=== PATIENT | male | born 1960 | race Hispanic/Latino ===

== ENCOUNTER 2017-05-03 06:09 | Inpatient (IN) | payer MEDICAID ==
[2017-05-03] MEDS ORDERED: Sodium Chloride 0.9% 1,000 ML IV STA (06:28)
[2017-05-03 06:58] LABS: BASO # 0.03 K/mm3 (0.0-2.0); BASO % 0.3 % (0.0-3.0); EOS # 0.1 (0.0-0.7); EOS % 1.1 % (1.5-5.0); GRAN # 5.34 (1.4-6.5); HEMOGLOBIN 16.9 g/dL (14.0-18.0); LYMPH # 2.7 (1.2-3.4); LYMPH % 30.7 % (22.0-35.0); MEAN CELL VOLUME 95.9 fl (80.0-105.0); MEAN CORPUSCULAR HEMOGLOBIN 31.6 pg (25.0-35.0); MEAN CORPUSCULAR HGB CONC 32.9 g/dl (31.0-37.0); MEAN PLATELET VOLUME 12.4 fl (7.0-11.0); MONO # 0.7 (0.1-0.6); MONO % 7.9 % (1.0-6.0); RBC 5.35 10^6/uL (3.5-6.1); RED CELL DISTRIBUTION WIDTH 12.6 % (11.5-14.5); WHITE BLOOD COUNT 8.9 10^3/ul (4.5-11.0)
[2017-05-03 07:02] LABS: ALB/GLOB RATIO 1.1 (1.1-1.8); ALBUMIN 3.8 g/dL (3.0-4.8); ALT/SGPT 36 U/L (7-56); AST/SGOT 18 U/L (17-59); BLOOD UREA NITROGEN 21 mg/dL (7-21); CALCIUM 9.5 mg/dL (8.4-10.5); GFR AFRICAN-AMERICAN > 60; GFR NON-AFRICAN AMERICAN > 60
[2017-05-03 07:12] LABS: TROPONIN I < 0.01 ng/mL
[2017-05-03 07:14] LABS: INR 0.99 (0.93-1.08); PROTHROMBIN TIME 10.9 SECONDS (9.4-12.5)
--- NOTE | 2017-05-03 07:34 | ED PDOC ---
Arrival/HPI - General Chief Complaint: Weakness/Neurological Deficit Time Seen by Provider: 05/03/17 06:26 Historian: Patient - History of Present Illness Narrative History of Present Illness (Text): 05/03/17 07:34 A 56 year old male, whose past medical history includes diabetes, presents to the emergency department complaining of chest pain, dizziness and near-syncope since yesterday afternoon. Patient describes his dizziness as both a spinning sensation and also lightheadedness, which is exacerbated with movement. Patient reports this morning he felt dizzy while walking and fell sitting down. PMD: Dr. Balckwell Time/Duration: Other (Yesterday afternoon) Symptom Course: Unchanged Quality: Other Context: Home Past Medical History - Provider Review Nursing Documentation Reviewed: Yes - Infectious Disease Hx of Infectious Diseases: None - Tetanus Immunization Tetanus Immunization: Unknown - Cardiac Hx Cardiac Disorders: Yes Hx Hypertension: Yes - Neurological HX Cerebrovascular Accident: Yes - HEENT Hx HEENT Disorder: No - Renal Hx Renal Disorder: No - Endocrine/Metabolic Hx Diabetes Mellitus Type 2: Yes - Hematological/Oncological Hx Blood Disorders: Yes (blood transfusion) - Integumentary Hx Dermatological Disorder: No - Musculoskeletal/Rheumatological Hx Falls: Yes - Gastrointestinal Hx Gastrointestinal Disorders: Yes - Genitourinary/Gynecological Hx Prostate Problems: Yes - Psychiatric Hx Substance Use: No - Surgical History Hx Appendectomy: Yes Hx Cardiac Catheterization: Yes (angioplasty 7 stents) Hx Coronary Stent: Yes - Anesthesia Hx Anesthesia Reactions: No Hx Malignant Hyperthermia: No - Suicidal Assessment Feels Threatened In Home Enviroment: No Family/Social History - Physician Review Nursing Documentation Reviewed: Yes Family/Social History: No Known Family HX Smoking Status: Former Smoker Hx Alcohol Use: No Hx Substance Use: No Hx Substance Use Treatment: No Allergies/Home Meds Allergies/Adverse Reactions: Allergies FISH Allergy (Mild, Verified 05/03/17 06:23) ITCHING Home Medications: Home Meds Medication Instructions Recorded Confirmed Aspirin 325 mg PO DAILY 05/03/17 05/03/17 Clonazepam [Klonopin] 0.5 mg PO HS 05/03/17 05/03/17 DULoxetine [Cymbalta] 60 mg PO DAILY 05/03/17 05/03/17 Insulin Glargine,Hum.rec.anlog 28 unit SQ HS 05/03/17 05/03/17 [Lantus Solostar] Insulin Lispro Protamin/Lispro 35 unit SQ [facility] 05/03/17 05/03/17 [Humalog Mix 75-25 Kwikpen] Levetiracetam [Keppra] 1,000 mg PO BID 05/03/17 05/03/17 Lisinopril [Zestril] 10 mg PO DIN 05/03/17 05/03/17 Metoprolol Tartrate [Lopressor] 50 mg PO BID 05/03/17 05/03/17 Potassium Chloride [Klor-Con] 20 meq PO DAILY 05/03/17 05/03/17 QUEtiapine [Seroquel] 100 mg PO HS 05/03/17 05/03/17 Ranitidine HCl [Acid Identification Technician 150] 150 mg PO BID 05/03/17 05/03/17 Tamsulosin [Flomax] 0.4 mg PO HS 05/03/17 05/03/17 Ziprasidone [Geodon Cap] 60 mg PO BID 05/03/17 05/03/17 Review of Systems - Physician Review All systems were reviewed & negative as marked: Yes - Review of Systems Constitutional: absent: Fevers, Night Sweats Respiratory: absent: SOB Cardiovascular: Other (Near-syncope). absent: Chest Pain Gastrointestinal: absent: Abdominal Pain, Diarrhea, Nausea, Vomiting, Hematochezia Genitourinary Male: absent: Dysuria, Frequency, Hematuria Neurological: Dizziness. absent: Headache Physical Exam Vital Signs Reviewed: Yes Vital Signs Temp Pulse Resp BP Pulse Ox 05/03/17 11:54 110/41 L 05/03/17 06:53 98.1 F 83 18 117/83 95 05/03/17 06:17 98.1 F 84 18 112/56 L 94 L Temperature: Afebrile Blood Pressure: Hypotensive Pulse: Regular Respiratory Rate: Normal Appearance: Positive for: Well-Appearing, Non-Toxic, Comfortable Pain Distress: None Mental Status: Positive for: Alert and Oriented X 3 Finger Stick Blood Glucose: 129 - Systems Exam Head: Present: Atraumatic, Normocephalic Pupils: Present: PERRL Extroacular Muscles: Present: EOMI Conjunctiva: Present: Normal Mouth: Present: Dry Respiratory/Chest: Present: Clear to Auscultation, Good Air Exchange. No: Respiratory Distress, Accessory Muscle Use Cardiovascular: Present: Regular Rate and Rhythm, Normal S1, S2. No: Murmurs Abdomen: Present: Normal Bowel Sounds. No: Tenderness, Distention, Peritoneal Signs Upper Extremity: Present: Normal Inspection, NORMAL PULSES. No: Cyanosis, Edema Lower Extremity: Present: Normal Inspection, NORMAL PULSES. No: Edema Neurological: Present: GCS=15, Speech Normal Skin: Present: Warm, Dry, Normal Color. No: Rashes Psychiatric: Present: Alert, Oriented x 3, Normal Insight, Normal Concentration Medical Decision Making ED Course and Treatment: EKG shows NSR at 84 BPM with LAFB, nonspecific T-wave abnormalities, similar to prior on 05/23/16. Interpreted by me. Report Date : 05/03/2017 09:25:55 PROCEDURE: CT scan brain dated 05/03/2017. Dictator : Joes Smith MD IMPRESSION: No acute intracranial hemorrhage. Moderate chronic white matter ischemic changes with small chronic lacunar-type infarct right caudate head. Moderate generalized volume loss with enlargement of the frontal and to a lesser degree parietal subarachnoid spaces. In situ CIVIL LABORATORY TECHNICIAN shunt tube unchanged in position. No evidence of obstructive hydrocephalus or shunt malfunction. Report Date : 05/03/2017 13:36:19 Procedure: Chest xray Dictator : Jose Smith MD IMPRESSION: No active disease. - Lab Interpretations Lab Results: 05/03/17 06:30 05/03/17 06:30 Lab Results 05/03/17 06:30: Sodium 138, Potassium 4.5, Chloride 100, Carbon Dioxide 26, Anion Gap 16, BUN 21, Creatinine 0.9, Est GFR ( Amer) > 60, Est GFR (Non- Af Amer) > 60, Random Glucose 144 H, Calcium 9.5, Total Bilirubin 0.4, AST 18, ALT 36, Alkaline Phosphatase 70, Troponin I < 0.01, Total Protein 7.3, Albumin 3.8, Globulin 3.5, Albumin/Globulin Ratio 1.1 05/03/17 06:30: PT 10.9, INR 0.99 05/03/17 06:30: WBC 8.9 D, RBC 5.35, Hgb 16.9, Hct 51.3, MCV 95.9, MCH 31.6, MCHC 32.9, RDW 12.6, Plt Count 142, MPV 12.4 H, Gran % 60.0, Lymph % (Auto) 30.7 , Vermilion % (Auto) 7.9 H, Eos % (Auto) 1.1 L, Baso % (Auto) 0.3, Gran # 5.34, Lymph # 2.7, Vermilion # 0.7 H, Eos # 0.1, Baso # 0.03 - RAD Interpretation Radiology Orders: 05/03/17 06:27 X-RAY [CHEST PORTABLE] [RAD] Stat 05/03/17 07:34 HEAD W/O CONTRAST [CT] Stat - Medication Orders Current Medication Orders: Discontinued Medications Aspirin (Aspirin Chewable) 81 mg PO DAILY [facility] Last Admin: 05/05/17 10:28 Dose: 81 mg Atorvastatin Calcium (Lipitor) 20 mg PO DIN [facility] Last Admin: 05/04/17 18:32 Dose: 20 mg Clonazepam (Klonopin) 0.5 mg PO HS [facility] PRN Reason: Protocol Last Admin: 05/04/17 22:12 Dose: 0.5 mg Behavioural Document 05/04/17 22:12 CO (Rec: 05/04/17 22:12 CO [id number]) Maintenance Maintenance Dose Yes Re-Assess: Reassess Psych Meds Document 05/04/17 23:12 CO (Rec: 05/05/17 02:44 CO [id number]) Reassess Psych Med Effective Clopidogrel Bisulfate (Plavix) 75 mg PO DAILY [facility] Last Admin: 05/05/17 10:28 Dose: 75 mg Duloxetine HCl (Cymbalta) 60 mg PO DAILY [facility] Last Admin: 05/05/17 10:28 Dose: 60 mg Enoxaparin Sodium (Lovenox) 40 mg SC DAILY [facility] PRN Reason: Protocol Last Admin: 05/05/17 10:29 Dose: 40 mg Subcutaneous Administrations Document 05/05/17 10:29 SML (Rec: 05/05/17 10:29 SML [id number]) Injection Site MAR Injection Site Left Abdomen Charges for Administration # of Subcutaneous Administrations 1 Famotidine (Pepcid) 20 mg PO Q12 [facility] Sodium Chloride (Sodium Chloride 0.9%) 1,000 mls @ 100 mls/hr IV .Q10H STA Stop: 05/03/17 16:27 Last Admin: 05/03/17 06:42 Dose: 100 mls/hr eMAR Start Stop Document 05/03/17 06:42 IT (Rec: 05/03/17 06:42 IT [id number]) Intravenous Solution Start Date 05/03/17 Start Time 06:42 Insulin Human Lispro (Humalog Med) 0 units SC [facility] PRN Reason: Protocol Last Admin: 05/04/17 18:20 Dose: Insulin Human Lispro (Humalog High) 0 units SC [facility] PRN Reason: Protocol Last Admin: 05/05/17 12:37 Dose: 7 units MAR Blood Glucose Document 05/05/17 12:37 SML (Rec: 05/05/17 12:38 SML [id number]) Blood Glucose Finger Stick Blood Glucose (70-120) 273 Subcutaneous Administrations Document 05/05/17 12:37 SML (Rec: 05/05/17 12:38 SML [id number]) Injection Site MAR Injection Site Right Arm Charges for Administration # of Subcutaneous Administrations 1 Insulin Lispro Protam/Lispro Human (Humalog Mix 75/25) 35 units SC [facility] Last Admin: 05/05/17 08:54 Dose: 35 units MAR Blood Glucose Document 05/05/17 08:54 SML (Rec: 05/05/17 08:54 SML [id number]) Blood Glucose Finger Stick Blood Glucose (70-120) 272 Subcutaneous Administrations Document 05/05/17 08:54 SML (Rec: 05/05/17 08:54 SML [id number]) Injection Site MAR Injection Site Right Arm Charges for Administration # of Subcutaneous Administrations 1 Isosorbide Mononitrate (Imdur) 60 mg PO DAILY [facility] Levetiracetam (Keppra) 1,000 mg PO BID [facility] Last Admin: 05/05/17 10:28 Dose: 1,000 mg Lisinopril (Zestril) 10 mg PO DIN [facility] Lisinopril (Zestril) 10 mg PO DIN [facility] Last Admin: 05/04/17 18:31 Dose: 10 mg MAR Pulse and Blood Pressure Document 05/04/17 18:31 JFR (Rec: 05/04/17 18:31 JFR [id number]) Blood Pressure Blood Pressure (100/60-150/90) 134/76 Metoprolol Tartrate (Lopressor) 50 mg PO BID [facility] Last Admin: 05/05/17 10:29 Dose: Not Given Non-Admin Reason: BP Parameters Not Met [facility] Pulse and Blood Pressure Document 05/05/17 10:29 SML (Rec: 05/05/17 10:29 SML [id number]) Pulse Pulse Rate (60-90) 95 Blood Pressure Blood Pressure (100/60-150/90) 101/52 Pantoprazole Sodium (Protonix Ec Tab) 40 mg PO 0600 [facility] Last Admin: 05/05/17 05:53 Dose: 40 mg Pneumococcal Polyvalent Vaccine (Pneumovax 23 Vaccine) 0.5 ml IM .ONCE ONE Stop: 05/03/17 19:23 Quetiapine Fumarate (Seroquel) 100 mg PO HS [facility] PRN Reason: Protocol Last Admin: 05/04/17 22:12 Dose: 100 mg Behavioural Document 05/04/17 22:12 CO (Rec: 05/04/17 22:12 CO [id number]) Maintenance Maintenance Dose Yes Re-Assess: Reassess Psych Meds Document 05/04/17 23:12 CO (Rec: 05/05/17 02:44 CO [id number]) Reassess Psych Med Effective Tamsulosin HCl (Flomax) 0.4 mg PO HS [facility] Last Admin: 05/04/17 22:12 Dose: 0.4 mg Ziprasidone (Geodon Cap) 60 mg PO Q12 [facility] PRN Reason: Protocol Last Admin: 05/05/17 10:28 Dose: 60 mg Re-Assess: Reassess Psych Meds Document 05/05/17 11:28 ML (Rec: 05/05/17 14:42 ML [id number]) Reassess Psych Med Effective - Scribe Statement The provider has reviewed the documentation as recorded by the Scribcarlton Garrison Provider Scribe Attestation: All medical record entries made by the Scribe were at my direction and personally dictated by me. I have reviewed the chart and agree that the record accurately reflects my personal performance of the history, physical exam, medical decision making, and the department course for this patient. I have also personally directed, reviewed, and agree with the discharge instructions and disposition. Disposition/Present on Arrival - Present on Arrival Any Indicators Present on Arrival: Yes History of DVT/PE: No History of Uncontrolled Diabetes: Yes Urinary Catheter: No History of Decub. Ulcer: No History Surgical Site Infection Following: CABG - Mediastinitis - Disposition Have Diagnosis and Disposition been Completed?: Yes Diagnosis: Chest pain Disposition: HOSPITALIZED Disposition Time: 12:39 Condition: STABLE
--- NOTE | 2017-05-03 09:27 | CT ---
PROCEDURE: CT scan brain dated 05/03/2017. HISTORY: Dizziness. . COMPARISON: Comparison made with CT scan brain dated 05/24/2016. . TECHNIQUE: Helical/ transaxial computed tomography images were obtained through the head/brain without intravenous contrast. Radiation dose: Total exam DLP = 902.16 mGy-cm. This CT exam was performed using one or more of the following dose reduction techniques: Automated exposure control, adjustment of the mA and/or kV according to patient size, and/or use of iterative reconstruction technique. . FINDINGS: HEMORRHAGE: No acute parenchymal, subarachnoid nor extra-axial hemorrhage. . Re- demonstrated is in situ SCOURING TRAIN OPERATOR CHIEF shunt to which enters a right frontal cecily hole, traverses through the anterior aspect right frontal lobe into the interhemispheric fissure and left lateral ventricle terminating in the posterior body left lateral ventricle unchanged in position. The ventricles remain relatively well-decompressed without evidence of malfunction ; no obstructive hydrocephalus. Moderate diffuse/ confluent chronic white matter ischemic changes are again seen. There is a small chronic appearing infarct right caudate head also unchanged. Moderate generalized volume loss with her enlarged of bifrontal subarachnoid spaces. No acute calvarial fractures. Visualized paranasal and mastoid air complexes well-developed and currently well-aerated. Orbits and contents unremarkable. IMPRESSION: No acute intracranial hemorrhage. Moderate chronic white matter ischemic changes with small chronic lacunar-type infarct right caudate head. Moderate generalized volume loss with enlargement of the frontal and to a lesser degree parietal subarachnoid spaces. In situ SCOURING TRAIN OPERATOR CHIEF shunt tube unchanged in position. No evidence of obstructive hydrocephalus or shunt malfunction.
--- NOTE | 2017-05-03 13:37 | RAD ---
HISTORY: dizziness COMPARISON: No prior. FINDINGS: LUNGS: No active pulmonary disease. PLEURA: No significant pleural effusion identified, no pneumothorax apparent. CARDIOVASCULAR: Heart appears enlarged. OSSEOUS STRUCTURES: No significant abnormalities. VISUALIZED UPPER ABDOMEN: Normal. OTHER FINDINGS: Note again made of a HIDE AND SKIN COLERER shunt to overlying the right aspect of the neck supraclavicular soft tissues and right chest. IMPRESSION: No active disease.
--- NOTE | 2017-05-03 14:12 | CP.PCM.HP ---
"<Princess Maza - Last Filed: 05/03/17 14:42> History of Present Illness - History of Present Illness History of Present Illness: 56 year old male with a PMHx of diabetes, Systolic CHF (34% EF), HTN, CAD s/p stent, NPH, BiPolar Disorder and paranoid schizophrenia who presented complaining of Dizziness with associated SOB and pre-syncopy with fall. Patient states his dizziness began yesterday at 2AM. He states his dizziness is exacerbated when he gets up from a sitting position. Patient fell twice. Once when getting up from a seating position and another time when while fixing the T.V. He denies any loss of consciousness, head trauma, recent changes of medications, increased urinary frequency or seizures. Patient denies having these symptoms before in the past. Patient may be a poor historian given his psychiatric history and conflicting information between my interview and interview with ED physician. ROS POSITIVES: Dizziness, mild LH, generalized weakness, Lower ext weakness, blurry vision, constipation (no BM in 2 days), SOB (During pre-syncopal episodes ) NEGATIVES: loss of consciousness, head trauma, recent changes of medications , increased urinary frequency, seizures, nausea, vomiting, diarrhea, hematuria, blood in stool, dysuria, tinnitus. 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 Quit 10 years ago. Denies alcohol or illicit drug use Hos: May 2016 with similar presentation as this admission. FamHx: Denies Meds: Reviewed Present on Admission - Present on Admission Any Indicators Present on Admission: No Review of Systems - Review of Systems Review of Systems: As per HPI Past Patient History - Infectious Disease Hx of Infectious Diseases: None - Tetanus Immunizations Tetanus Immunization: Unknown - Past Medical History & Family History Past Medical History?: Yes - Past Social History Smoking Status: Former Smoker - CARDIAC Hx Cardiac Disorders: Yes Hx Hypertension: Yes - NEUROLOGICAL HX Cerebrovascular Accident: Yes - HEENT Hx HEENT Problems: No - RENAL Hx Chronic Kidney Disease: No - ENDOCRINE/METABOLIC Hx Diabetes Mellitus Type 2: Yes - HEMATOLOGICAL/ONCOLOGICAL Hx Blood Disorders: Yes (blood transfusion) - INTEGUMENTARY Hx Dermatological Problems: No - MUSCULOSKELETAL/RHEUMATOLOGICAL Hx Falls: Yes - GASTROINTESTINAL Hx Gastrointestinal Disorders: Yes - GENITOURINARY/GYNECOLOGICAL Hx Prostate Problems: Yes - PSYCHIATRIC Hx Substance Use: No - SURGICAL HISTORY Hx Appendectomy: Yes Hx Cardiac Catheterization: Yes (angioplasty 7 stents) Hx Coronary Stent: Yes - ANESTHESIA Hx Anesthesia Reactions: No Hx Malignant Hyperthermia: No Meds Allergies/Adverse Reactions: Allergies Allergy/AdvReac Type Severity Reaction Status Date / Time FISH Allergy Mild ITCHING Verified 05/03/17 06:23 Physical Exam - Constitutional Appears: Well, Non-toxic, No Acute Distress Additional comments: Obese - Head Exam Head Exam: ATRAUMATIC, NORMAL INSPECTION, NORMOCEPHALIC - Eye Exam Eye Exam: EOMI, Normal appearance, PERRL. absent: Periorbital swelling, Periorbital tenderness - ENT Exam ENT Exam: Mucous Membranes Moist - Neck Exam Neck exam: Negative for: Lymphadenopathy, Thyromegaly - Respiratory Exam Respiratory Exam: Clear to Auscultation Bilateral. absent: Rales, Rhonchi, Wheezes - Cardiovascular Exam Cardiovascular Exam: RRR, +S1, +S2. absent: JVD - GI/Abdominal Exam GI & Abdominal Exam: Normal Bowel Sounds, Soft. absent: Organomegaly, Tenderness - Extremities Exam Extremities exam: Positive for: normal capillary refill, normal inspection, pedal pulses present. Negative for: pedal edema - Back Exam Additional comments: Large Area of Ecchymosis on the left lower back. - Neurological Exam Neurological exam: Alert, CN II-XII Intact, Oriented x3 Additional comments: 5/5 Motor Strength in the Upper and Lower Ext. B/L. - Psychiatric Exam Additional comments: Thought Blocking and Constricted Affect. - Skin Additional comments: Around T1 region of Neck/Back. Erythematous, raised and slightly TTP. patient states it is chronic. Results - Vital Signs Recent Vital Signs: Last Vital Signs Temp 98.1 F 05/03/17 06:53 Pulse 83 05/03/17 06:53 Resp 18 05/03/17 06:53 BP 110/41 L 05/03/17 11:54 Pulse Ox 95 05/03/17 06:53 - Labs Result Diagrams: 05/03/17 06:30 05/03/17 06:30 Assessment & Plan - Assessment and Plan (Free Text) Assessment: 56 year old male with a PMHx of diabetes, Systolic CHF (34% EF), HTN, CAD s/p stent, NPH, BiPolar DO and paranoid schizophrenia admitted for evaluation and treatment of pre-syncopal episodes w/ fall and dizziness. Plan: Dizziness /Pre-syncopy/Fall EKG: NSR, Left Ant. Fasicular Block, Non-specific T-wave abnormality CXR: No Active Disease. Head CT: -No acute intracranial hemorrhage. Moderate chronic white matter ischemic changes with small chronic lacunar-type infarct right caudate head. -Moderate generalized volume loss with enlargement of the frontal and to a lesser degree parietal subarachnoid spaces. -In situ ASSISTANT AUTO CENTER MANAGER shunt tube unchanged in position. No evidence of obstructive hydrocephalus or shunt malfunction. Orthostatic Pressures. Fall Precautions | Neuro Checks Q4H Hold Diuretics: Lasix Hold Lisinopril 10 Until unless Orthostatics are Negative Consider Holding Flomax. HTN/Hx of CAD w/ stent placement, Hx of CVA, and Hx of Systolic CHF Home ASA 81 Daily Home Lipitor 20mg PO HS Home Plavis 75 Daily Home Imdur 60 Daily (Held, Medication not confirmed) Home Metoprolol Tartrate 50 PO BID Home Lisinopril 10 (Held). Restart if Orthostatics are NEGATIVE Home Lasix 40 PO Daily (Held) Keppra 1000 PO BID - Post CVA Seizure Proph - Consider Neuro consult DM II Home Lispro 35 Units SC [facility] ISS Psych Cymbalta 60mg PO Daily Klonopin 0.5mg HS Seroquel 100mg HS Geodon 60 PO Q12H Patient seen and discussed with Attending Princess Maza - PGY1 <Teresa Berger - Last Filed: 05/07/17 12:30> Results - Vital Signs Recent Vital Signs: Last Vital Signs Temp 98.9 F 05/05/17 12:00 Pulse 93 H 05/05/17 12:00 Resp 20 05/05/17 12:00 BP 148/92 H 05/05/17 12:00 Pulse Ox 93 L 05/05/17 06:00 - Labs Result Diagrams: 05/05/17 07:40 05/05/17 07:40 Attending/Attestation - Attestation I have personally seen and examined this patient.: Yes I have fully participated in the care of the patient.: Yes I have reviewed all pertinent clinical information: Yes Notes (Text): 05/07/17 12:28 Patient was seen and examined with manager medical writing. 56 yrs male with PMH of CAD,SP Cardiac stent,CHF with systolic dysfunction EF 32,IRDM,Hyperlipidemia, Depression is admitted with h/o dizziness, lightheadedness followed by fall fall, , (no of loss of consciousness),Etiology is likely likely due to orthostatic hypotension, CT head is negative for acute changes, We will get 2D Echo, we will monitor patient in telemetry. We will get PT/OT evaluation, Management plan was discussed in detail. Education was provided."
--- NOTE | 2017-05-03 14:45 | CARD ---
APPROVED REPORT EKG Measurement Heart [id number] <Conclusion> Normal sinus rhythm Left anterior fascicular block Nonspecific T wave abnormality Abnormal ECG
[2017-05-03] MEDS: Insulin Lispro (humaLOG) MEDIUM Coverage SC SCH ×2 (18:32→22:28)
[2017-05-03 19:21] VITALS: BMI 32.8
[2017-05-03] MEDS ORDERED: Pneumococcal 23-Valent Vaccine IM ONE (19:22)
[2017-05-03] MEDS ORDERED: Influenza Vaccine 60 mcg/0.5 mL SYR (4YR UP) IM ONE (19:22)
[2017-05-03] MEDS: Insulin Lispro (humaLOG) MIX 75/25(10 ml) SC SCH (22:29)
[2017-05-04] MEDS: Pantoprazole 40 mg EC Tab PO SCH (05:24)
[2017-05-04 07:53] LABS: BASO # 0.02 K/mm3 (0.0-2.0); BASO % 0.2 % (0.0-3.0); EOS # 0.1 (0.0-0.7); EOS % 0.5 % (1.5-5.0); GRAN # 6.91 (1.4-6.5); GRAN % 69.9 % (50.0-68.0); HEMOGLOBIN 15.5 g/dL (14.0-18.0); LYMPH # 2.2 (1.2-3.4); LYMPH % 22.1 % (22.0-35.0); MEAN CORPUSCULAR HEMOGLOBIN 31.2 pg (25.0-35.0); MEAN CORPUSCULAR HGB CONC 32.5 g/dl (31.0-37.0); MEAN PLATELET VOLUME 12.5 fl (7.0-11.0); MONO # 0.7 (0.1-0.6); MONO % 7.3 % (1.0-6.0); RBC 4.97 10^6/uL (3.5-6.1); RED CELL DISTRIBUTION WIDTH 12.8 % (11.5-14.5); WHITE BLOOD COUNT 9.9 10^3/ul (4.5-11.0)
[2017-05-04 08:10] LABS: ALB/GLOB RATIO 1.1 (1.1-1.8); ALBUMIN 3.6 g/dL (3.0-4.8); ALT/SGPT 35 U/L (7-56); AST/SGOT 18 U/L (17-59); BLOOD UREA NITROGEN 20 mg/dL (7-21); CALCIUM 8.8 mg/dL (8.4-10.5); GFR AFRICAN-AMERICAN > 60; GFR NON-AFRICAN AMERICAN > 60
[2017-05-04] MEDS: Insulin Lispro (humaLOG) MIX 75/25(10 ml) SC SCH ×2 (09:22→22:09)
[2017-05-04] MEDS: Insulin Lispro (humaLOG) MEDIUM Coverage SC SCH ×3 (09:23→18:20)
[2017-05-04] MEDS: Enoxaparin 40 mg Syringe SC SCH (09:24)
--- NOTE | 2017-05-04 12:17 | CP.PCM.PN ---
"<Princess Maza - Last Filed: 05/04/17 12:12> Subjective - Date & Time of Evaluation Date of Evaluation: 05/04/17 Time of Evaluation: 12:12 - Subjective Subjective: Patient has been seen and examined. Patient has no complaints at this time. His dizziness has improved. Objective - Vital Signs/Intake and Output Vital Signs (last 24 hours): Temp Pulse Resp BP Pulse Ox 98.4 F 109 H 20 128/69 95 05/04/17 06:00 05/04/17 09:24 05/04/17 06:00 05/04/17 09:24 05/04/17 06:00 Intake and Output: 05/04/17 05/04/17 06:59 18:59 Output Total 350 Balance -350 - Medications Medications: Current Medications Aspirin (Aspirin Chewable) 81 mg PO DAILY [facility] Last Admin: 05/04/17 09:24 Dose: 81 mg Atorvastatin Calcium (Lipitor) 20 mg PO DIN [facility] Last Admin: 05/03/17 18:32 Dose: 20 mg Clonazepam (Klonopin) 0.5 mg PO HS [facility] PRN Reason: Protocol Last Admin: 05/03/17 22:28 Dose: 0.5 mg Clopidogrel Bisulfate (Plavix) 75 mg PO DAILY [facility] Last Admin: 05/04/17 09:24 Dose: 75 mg Duloxetine HCl (Cymbalta) 60 mg PO DAILY [facility] Last Admin: 05/04/17 09:24 Dose: 60 mg Enoxaparin Sodium (Lovenox) 40 mg SC DAILY [facility] PRN Reason: Protocol Last Admin: 05/04/17 09:24 Dose: 40 mg Famotidine (Pepcid) 20 mg PO Q12 [facility] Insulin Human Lispro (Humalog Med) 0 units SC [facility] PRN Reason: Protocol Last Admin: 05/04/17 12:01 Dose: 3 units Insulin Lispro Protam/Lispro Human (Humalog Mix 75/25) 35 units SC ACS [facility] Last Admin: 05/04/17 09:22 Dose: 35 units Isosorbide Mononitrate (Imdur) 60 mg PO DAILY [facility] Levetiracetam (Keppra) 1,000 mg PO BID [facility] Last Admin: 05/04/17 09:24 Dose: 1,000 mg Lisinopril (Zestril) 10 mg PO DIN [facility] Metoprolol Tartrate (Lopressor) 50 mg PO BID [facility] Last Admin: 05/04/17 09:24 Dose: 50 mg Pantoprazole Sodium (Protonix Ec Tab) 40 mg PO 0600 [facility] Last Admin: 05/04/17 05:24 Dose: 40 mg Quetiapine Fumarate (Seroquel) 100 mg PO HS [facility] PRN Reason: Protocol Last Admin: 05/03/17 22:27 Dose: 100 mg Tamsulosin HCl (Flomax) 0.4 mg PO HS [facility] Last Admin: 05/03/17 22:28 Dose: 0.4 mg Ziprasidone (Geodon Cap) 60 mg PO Q12 [facility] PRN Reason: Protocol Last Admin: 05/04/17 09:25 Dose: 60 mg - Labs Labs: 05/04/17 06:30 05/04/17 06:30 PT 10.9 SECONDS (9.4-12.5) 05/03/17 06:30 INR 0.99 (0.93-1.08) 05/03/17 06:30 - Additional Findings Additional findings: - Constitutional Appears: Well, Non-toxic, No Acute Distress Additional comments: Obese - Head Exam Head Exam: ATRAUMATIC, NORMAL INSPECTION, NORMOCEPHALIC - Eye Exam Eye Exam: EOMI, Normal appearance, PERRL. absent: Periorbital swelling, Periorbital tenderness - ENT Exam ENT Exam: Mucous Membranes Moist - Neck Exam Neck exam: Negative for: Lymphadenopathy, Thyromegaly - Respiratory Exam Respiratory Exam: Clear to Auscultation Bilateral. absent: Rales, Rhonchi, Wheezes - Cardiovascular Exam Cardiovascular Exam: RRR, +S1, +S2. absent: JVD - GI/Abdominal Exam GI & Abdominal Exam: Normal Bowel Sounds, Soft. absent: Organomegaly, Tenderness - Extremities Exam Extremities exam: Positive for: normal capillary refill, normal inspection, pedal pulses present. Negative for: pedal edema - Back Exam Additional comments: Large Area of Ecchymosis on the left lower back. - Neurological Exam Neurological exam: Alert, CN II-XII Intact, Oriented x3 Additional comments: 5/5 Motor Strength in the Upper and Lower Ext. B/L. - Psychiatric Exam Additional comments: Thought Blocking and Constricted Affect. Assessment and Plan - Assessment and Plan (Free Text) Assessment: 56 year old male with a PMHx of diabetes, Systolic CHF (34% EF), HTN, CAD s/p stent, NPH, BiPolar DO and paranoid schizophrenia admitted for evaluation and treatment of pre-syncopal episodes w/ fall and dizziness. Plan: Dizziness /Pre-syncopy/Fall EKG: NSR, Left Ant. Fasicular Block, Non-specific T-wave abnormality CXR: No Active Disease. Head CT: -No acute intracranial hemorrhage. Moderate chronic white matter ischemic changes with small chronic lacunar-type infarct right caudate head. -Moderate generalized volume loss with enlargement of the frontal and to a lesser degree parietal subarachnoid spaces. -In situ E[employer] POWER [employer] REPA[employer]ER shunt tube unchanged in position. No evidence of obstructive hydrocephalus or shunt malfunction. Orthostatic Pressures - NEGATIVE Fall Precautions | Neuro Checks Q4H Hold Diuretics: Lasix Consider Holding Flomax. PT - Will follow up with PT Recs. HTN/Hx of CAD w/ stent placement, Hx of CVA, and Hx of Systolic CHF Home ASA 81 Daily Home Lipitor 20mg PO HS Home Plavis 75 Daily Home Imdur 60 Daily (Held, Medication not confirmed) Home Metoprolol Tartrate 50 PO BID Home Lisinopril 10 Home Lasix 40 PO Daily (Held) Keppra 1000 PO BID - Post CVA Seizure Proph - Consider Neuro consult DM II Home Lispro 35 Units SC [facility] ISS Psych Cymbalta 60mg PO Daily Klonopin 0.5mg HS Seroquel 100mg HS Geodon 60 PO Q12H Patient seen and discussed with Attending Princess Maza - PGY1 Dispo: DC depends on PT recommendations. We will slowly add BP meds. <Altagracia Savage - Last Filed: 05/04/17 13:50> Objective - Vital Signs/Intake and Output Vital Signs (last 24 hours): Temp Pulse Resp BP Pulse Ox 98 F 88 20 150/90 95 05/04/17 12:00 05/04/17 12:00 05/04/17 12:00 05/04/17 12:00 05/04/17 06:00 Intake and Output: 05/04/17 05/04/17 06:59 18:59 Output Total 350 Balance -350 - Medications Medications: Current Medications Aspirin (Aspirin Chewable) 81 mg PO DAILY [facility] Last Admin: 05/04/17 09:24 Dose: 81 mg Atorvastatin Calcium (Lipitor) 20 mg PO DIN [facility] Last Admin: 05/03/17 18:32 Dose: 20 mg Clonazepam (Klonopin) 0.5 mg PO HS [facility] PRN Reason: Protocol Last Admin: 05/03/17 22:28 Dose: 0.5 mg Clopidogrel Bisulfate (Plavix) 75 mg PO DAILY [facility] Last Admin: 05/04/17 09:24 Dose: 75 mg Duloxetine HCl (Cymbalta) 60 mg PO DAILY [facility] Last Admin: 05/04/17 09:24 Dose: 60 mg Enoxaparin Sodium (Lovenox) 40 mg SC DAILY [facility] PRN Reason: Protocol Last Admin: 05/04/17 09:24 Dose: 40 mg Famotidine (Pepcid) 20 mg PO Q12 [facility] Insulin Human Lispro (Humalog Med) 0 units SC [facility] PRN Reason: Protocol Last Admin: 05/04/17 12:01 Dose: 3 units Insulin Lispro Protam/Lispro Human (Humalog Mix 75/25) 35 units SC [facility] Last Admin: 05/04/17 09:22 Dose: 35 units Isosorbide Mononitrate (Imdur) 60 mg PO DAILY [facility] Levetiracetam (Keppra) 1,000 mg PO BID [facility] Last Admin: 05/04/17 09:24 Dose: 1,000 mg Lisinopril (Zestril) 10 mg PO DIN [facility] Metoprolol Tartrate (Lopressor) 50 mg PO BID [facility] Last Admin: 05/04/17 09:24 Dose: 50 mg Pantoprazole Sodium (Protonix Ec Tab) 40 mg PO 0600 [facility] Last Admin: 05/04/17 05:24 Dose: 40 mg Quetiapine Fumarate (Seroquel) 100 mg PO HS [facility] PRN Reason: Protocol Last Admin: 05/03/17 22:27 Dose: 100 mg Tamsulosin HCl (Flomax) 0.4 mg PO HS [facility] Last Admin: 05/03/17 22:28 Dose: 0.4 mg Ziprasidone (Geodon Cap) 60 mg PO Q12 [facility] PRN Reason: Protocol Last Admin: 05/04/17 09:25 Dose: 60 mg - Labs Labs: 05/04/17 06:30 05/04/17 06:30 PT 10.9 SECONDS (9.4-12.5) 05/03/17 06:30 INR 0.99 (0.93-1.08) 05/03/17 06:30 Attending/Attestation - Attestation I have personally seen and examined this patient.: Yes I have fully participated in the care of the patient.: Yes I have reviewed all pertinent clinical information, including history, physical exam and plan: Yes Notes (Text): 05/04/17 13:45 56 year old male with past medical history of CHF, CAD s/p stent, diabetes, NPH s/p [employer] POWER [employer]PA[employer] shunt, bipolar and schizophrenia who presented with presyncopal episode at home with dizziness and fall. CT head was reviewed as above. Orthostatics vitals were negative. PT evaluation is pending. Will begin to resume his home BP medications as his orthostatics were negative. Continue with insulin for diabetes. Altagracia Savage MD Hospitalist."
[2017-05-04] MEDS: Insulin Lispro (HUMAlog) HIGH Coverage SC SCH (22:11)
[2017-05-05] MEDS: Pantoprazole 40 mg EC Tab PO SCH (05:53)
[2017-05-05 07:56] LABS: BASO # 0.03 K/mm3 (0.0-2.0); BASO % 0.3 % (0.0-3.0); EOS # 0.1 (0.0-0.7); EOS % 0.9 % (1.5-5.0); GRAN # 5.51 (1.4-6.5); GRAN % 64.1 % (50.0-68.0); HEMOGLOBIN 14.3 g/dL (14.0-18.0); LYMPH # 2.3 (1.2-3.4); LYMPH % 26.1 % (22.0-35.0); MEAN CELL VOLUME 96.7 fl (80.0-105.0); MEAN CORPUSCULAR HEMOGLOBIN 31.4 pg (25.0-35.0); MEAN CORPUSCULAR HGB CONC 32.4 g/dl (31.0-37.0); MEAN PLATELET VOLUME 12.6 fl (7.0-11.0); MONO # 0.7 (0.1-0.6); MONO % 8.6 % (1.0-6.0); RBC 4.56 10^6/uL (3.5-6.1); RED CELL DISTRIBUTION WIDTH 12.8 % (11.5-14.5); WHITE BLOOD COUNT 8.6 10^3/ul (4.5-11.0)
[2017-05-05 08:11] LABS: ALB/GLOB RATIO 1.1 (1.1-1.8); ALBUMIN 3.4 g/dL (3.0-4.8); ALT/SGPT 34 U/L (7-56); AST/SGOT 21 U/L (17-59); BLOOD UREA NITROGEN 27 mg/dL (7-21); GFR AFRICAN-AMERICAN > 60; GFR NON-AFRICAN AMERICAN > 60
[2017-05-05 08:50] VITALS: O2SAT 93
[2017-05-05] MEDS: Insulin Lispro (humaLOG) MIX 75/25(10 ml) SC SCH (08:54)
[2017-05-05] MEDS: Insulin Lispro (HUMAlog) HIGH Coverage SC SCH ×2 (08:54→12:37)
[2017-05-05] MEDS: Enoxaparin 40 mg Syringe SC SCH (10:29)
--- NOTE | 2017-05-05 12:19 | CP.PCM.DIS ---
<Kp Guerra - Last Filed: 05/08/17 15:37> Provider - Provider Date of Admission: 05/03/17 12:39 Attending physician: Altagracia Savage MD Primary care physician: Donna Blackwell MD Time Spent in preparation of Discharge (in minutes): 70 Hospital Course - Lab Results Lab Results: Most Recent Lab Values WBC 8.6 10^3/ul (4.5-11.0) 05/05/17 07:40 RBC 4.56 10^6/uL (3.5-6.1) 05/05/17 07:40 Hgb 14.3 g/dL (14.0-18.0) 05/05/17 07:40 Hct 44.1 % (42.0-52.0) 05/05/17 07:40 MCV 96.7 fl (80.0-105.0) 05/05/17 07:40 MCH 31.4 pg (25.0-35.0) 05/05/17 07:40 MCHC 32.4 g/dl (31.0-37.0) 05/05/17 07:40 RDW 12.8 % (11.5-14.5) 05/05/17 07:40 Plt Count 133 10^3/uL (120.0-450.0) 05/05/17 07:40 MPV 12.6 fl (7.0-11.0) H 05/05/17 07:40 Gran % 64.1 % (50.0-68.0) 05/05/17 07:40 Lymph % (Auto) 26.1 % (22.0-35.0) 05/05/17 07:40 [place] % (Auto) 8.6 % (1.0-6.0) H 05/05/17 07:40 Eos % (Auto) 0.9 % (1.5-5.0) L 05/05/17 07:40 Baso % (Auto) 0.3 % (0.0-3.0) 05/05/17 07:40 Gran # 5.51 (1.4-6.5) 05/05/17 07:40 Lymph # 2.3 (1.2-3.4) 05/05/17 07:40 [place] # 0.7 (0.1-0.6) H 05/05/17 07:40 Eos # 0.1 (0.0-0.7) 05/05/17 07:40 Baso # 0.03 K/mm3 (0.0-2.0) 05/05/17 07:40 PT 10.9 SECONDS (9.4-12.5) 05/03/17 06:30 INR 0.99 (0.93-1.08) 05/03/17 06:30 Sodium 135 mmol/L (132-148) 05/05/17 07:40 Potassium 4.5 mmol/L (3.6-5.0) 05/05/17 07:40 Chloride 101 mmol/L (98-107) 05/05/17 07:40 Carbon Dioxide 26 mmol/L (21-33) 05/05/17 07:40 Anion Gap 13 (10-20) 05/05/17 07:40 BUN 27 mg/dL (7-21) H 05/05/17 07:40 Creatinine 1.0 mg/dl (0.8-1.5) 05/05/17 07:40 Est GFR ( Amer) > 60 05/05/17 07:40 Est GFR (Non-Af Amer) > 60 05/05/17 07:40 POC Glucose (mg/dL) 273 mg/dL (65-110) H 05/05/17 11:00 Random Glucose 292 mg/dL (70-110) H 05/05/17 07:40 Calcium 9.0 mg/dL (8.4-10.5) 05/05/17 07:40 Total Bilirubin 0.5 mg/dL (0.2-1.3) 05/05/17 07:40 AST 21 U/L (17-59) 05/05/17 07:40 ALT 34 U/L (7-56) 05/05/17 07:40 Alkaline Phosphatase 62 U/L (38-126) 05/05/17 07:40 Troponin I < 0.01 ng/mL 05/03/17 06:30 Total Protein 6.5 g/dL (5.8-8.3) 05/05/17 07:40 Albumin 3.4 g/dL (3.0-4.8) 05/05/17 07:40 Globulin 3.1 gm/dL 05/05/17 07:40 Albumin/Globulin Ratio 1.1 (1.1-1.8) 05/05/17 07:40 - Hospital Course Hospital Course: 56 year old male with a PMHx of diabetes, Systolic CHF (34% EF), HTN, CAD s/p stent, NPH, BiPolar DO and paranoid schizophrenia admitted for evaluation and treatment of pre-syncopal episodes w/ fall and dizziness. For Dizziness, Pre- syncopy, Fall EKG was done showing NSR, Left Ant. Fasicular Block, Non-specific T-wave abnormality. CXR showed No Active Disease. Head CT showed No acute intracranial hemorrhage. Moderate chronic white matter ischemic changes with small chronic lacunar-type infarct right caudate head. Moderate generalized volume loss with enlargement of the frontal and to a lesser degree parietal subarachnoid spaces.In situ [employer] shunt tube unchanged in position. No evidence of obstructive hydrocephalus or shunt malfunction. Orthostatic Pressures were obtained and were NEGATIVE. He was placed on Fall Precautions on Neuro Checks Q4H. Lasix was held and flomax as well. PT was consulted. For his HTN/Hx of CAD w/ stent placement, Hx of CVA, and Hx of Systolic CHF he was placed on his home medications as well as Keppra for seizure precautions. For his DM, he was placed on an insulin sliding scale. For psych issues he was placed on his appropriate meds from home. Patient improved clinically, denied lightheadedness and stated he was able to walk with no issues. He was cleared by PT and discharged home. Discharge Exam - Head Exam Head Exam: ATRAUMATIC, NORMAL INSPECTION, NORMOCEPHALIC - Eye Exam Eye Exam: EOMI, Normal appearance - Respiratory Exam Respiratory Exam: NORMAL BREATHING PATTERN - Cardiovascular Exam Cardiovascular Exam: REGULAR RHYTHM - GI/Abdominal Exam GI & Abdominal Exam: Normal Bowel Sounds - Neurological Exam Neurological exam: Alert, Oriented x3 Discharge Plan - Follow Up Plan Condition: STABLE Disposition: HOME/ ROUTINE Instructions: Angina (DC), COPD (Chronic Obstructive Pulmonary Disease) (DC) Additional Instructions: Follow up with PMD, please go to the nearest ED if symptoms return Referrals: Donna Blackwell MD [Primary Care Provider] - <Altagracia Savage - Last Filed: 05/08/17 15:58> Provider - Provider Date of Admission: 05/03/17 12:39 Attending physician: Altagracia Savage MD Primary care physician: Donna Blackwell MD Hospital Course - Lab Results Lab Results: Most Recent Lab Values WBC 8.6 10^3/ul (4.5-11.0) 05/05/17 07:40 RBC 4.56 10^6/uL (3.5-6.1) 05/05/17 07:40 Hgb 14.3 g/dL (14.0-18.0) 05/05/17 07:40 Hct 44.1 % (42.0-52.0) 05/05/17 07:40 MCV 96.7 fl (80.0-105.0) 05/05/17 07:40 MCH 31.4 pg (25.0-35.0) 05/05/17 07:40 MCHC 32.4 g/dl (31.0-37.0) 05/05/17 07:40 RDW 12.8 % (11.5-14.5) 05/05/17 07:40 Plt Count 133 10^3/uL (120.0-450.0) 05/05/17 07:40 MPV 12.6 fl (7.0-11.0) H 05/05/17 07:40 Gran % 64.1 % (50.0-68.0) 05/05/17 07:40 Lymph % (Auto) 26.1 % (22.0-35.0) 05/05/17 07:40 [place] % (Auto) 8.6 % (1.0-6.0) H 05/05/17 07:40 Eos % (Auto) 0.9 % (1.5-5.0) L 05/05/17 07:40 Baso % (Auto) 0.3 % (0.0-3.0) 05/05/17 07:40 Gran # 5.51 (1.4-6.5) 05/05/17 07:40 Lymph # 2.3 (1.2-3.4) 05/05/17 07:40 [place] # 0.7 (0.1-0.6) H 05/05/17 07:40 Eos # 0.1 (0.0-0.7) 05/05/17 07:40 Baso # 0.03 K/mm3 (0.0-2.0) 05/05/17 07:40 PT 10.9 SECONDS (9.4-12.5) 05/03/17 06:30 INR 0.99 (0.93-1.08) 05/03/17 06:30 Sodium 135 mmol/L (132-148) 05/05/17 07:40 Potassium 4.5 mmol/L (3.6-5.0) 05/05/17 07:40 Chloride 101 mmol/L (98-107) 05/05/17 07:40 Carbon Dioxide 26 mmol/L (21-33) 05/05/17 07:40 Anion Gap 13 (10-20) 05/05/17 07:40 BUN 27 mg/dL (7-21) H 05/05/17 07:40 Creatinine 1.0 mg/dl (0.8-1.5) 05/05/17 07:40 Est GFR ( Amer) > 60 05/05/17 07:40 Est GFR (Non-Af Amer) > 60 05/05/17 07:40 POC Glucose (mg/dL) 273 mg/dL (65-110) H 05/05/17 11:00 Random Glucose 292 mg/dL (70-110) H 05/05/17 07:40 Calcium 9.0 mg/dL (8.4-10.5) 05/05/17 07:40 Total Bilirubin 0.5 mg/dL (0.2-1.3) 05/05/17 07:40 AST 21 U/L (17-59) 05/05/17 07:40 ALT 34 U/L (7-56) 05/05/17 07:40 Alkaline Phosphatase 62 U/L (38-126) 05/05/17 07:40 Troponin I < 0.01 ng/mL 05/03/17 06:30 Total Protein 6.5 g/dL (5.8-8.3) 05/05/17 07:40 Albumin 3.4 g/dL (3.0-4.8) 05/05/17 07:40 Globulin 3.1 gm/dL 05/05/17 07:40 Albumin/Globulin Ratio 1.1 (1.1-1.8) 05/05/17 07:40 Attending/Attestation - Attestation I have personally seen and examined this patient.: Yes I have fully participated in the care of the patient.: Yes I have reviewed all pertinent clinical information, including history, physical exam and plan: Yes Notes (Text): 05/08/17 15:57 56 year old male with past medical history of CHF, CAD s/p stent, diabetes, NPH s/p [employer] shunt, bipolar and schizophrenia who presented with presyncopal episode at home with dizziness and fall. CT head was reviewed as above. Orthostatics vitals were negative. His symptoms resolved. He was seen by PT and ambulating without complaints or assistance. He is discharged home to follow up with his pmd. Altargacia Savage MD Hospitalist.
[2017-05-05 15:06] VITALS: BP 148/92; PULSE 93; RESP 20; TEMP 98.9
== END 2017-05-05 15:38 | disposition home or self-care (01) | DRG 543 ==
LOC: ED 06:09 → ERH 12:39 → 3RSO 14:02
PROVIDERS: ADMIT Internal Medicine; ATTEND Internal Medicine
DX: I95.1 Orthostatic hypotension (principal); I50.22 Chronic systolic (congestive) heart failure; I11.0 Hypertensive heart disease with heart failure; E11.9 Type 2 diabetes mellitus without complications; F20.0 Paranoid schizophrenia; F31.9 Bipolar disorder, unspecified; I25.10 Atherosclerotic heart disease of native coronary artery without angina pectoris; Z98.2 Presence of cerebrospinal fluid drainage device; Z86.73 Personal history of transient ischemic attack (TIA), and cerebral infarction without residual deficits; Z79.82 Long term (current) use of aspirin; Z90.49 Acquired absence of other specified parts of digestive tract; Z95.5 Presence of coronary angioplasty implant and graft; Z79.899 Other long term (current) drug therapy; Z87.891 Personal history of nicotine dependence

== ENCOUNTER 2017-05-23 15:53 | Inpatient (IN) | payer MEDICAID ==
[2017-05-23 16:04] VITALS: BMI 36.5
--- NOTE | 2017-05-23 16:37 | ED PDOC ---
Arrival/HPI - General Chief Complaint: Abnormal Skin Integrity Time Seen by Provider: 05/23/17 16:05 Historian: Patient, Caregiver - History of Present Illness Narrative History of Present Illness (Text): 05/23/17 56 year old male with a PMHx of diabetes, Systolic CHF (34% EF), HTN, CAD s/p stent, NPH, BiPolar Disorder and paranoid schizophrenia who presented to ED accompanied by caregiver for evaluation of painful mass over Right side abdominal wall gradually developed for past few days. Pt admits, deliver insulin SQ usually to abdomen "it may cause some infection", (+) chills today. Otherwise, denies high fever, headache, dizziness, CP, SOB, abd. pain, N/V/D, UTI sx, denies known other trauma or injury. Appears comfortable at present time , not in any apparent distress. Past Medical History - Provider Review Nursing Documentation Reviewed: Yes - Travel History Have you recently traveled outside [place] w/in the past 3 mons?: No - Infectious Disease Hx of Infectious Diseases: None - Tetanus Immunization Tetanus Immunization: Unknown - Cardiac Hx Cardiac Disorders: Yes Hx ID: Yes Hx Hypertension: Yes - Pulmonary Hx Chronic Obstructive Pulmonary Disease (COPD): Yes Hx Sleep Apnea: Yes (on bipap) - Neurological HX Cerebrovascular Accident: Yes - HEENT Hx HEENT Disorder: No - Renal Hx Renal Disorder: No - Endocrine/Metabolic Hx Diabetes Mellitus Type 1: Yes - Hematological/Oncological Hx Blood Disorders: Yes (blood transfusion) - Integumentary Hx Dermatological Disorder: No - Musculoskeletal/Rheumatological Hx Falls: Yes - Gastrointestinal Hx Gastrointestinal Disorders: Yes - Genitourinary/Gynecological Hx Prostate Problems: Yes - Psychiatric Hx Anxiety: Yes Hx Bipolar Disorder: Yes Hx Depression: Yes Hx Hallucinations: Yes Hx Schizophrenia: Yes Hx Substance Use: No - Surgical History Hx Appendectomy: Yes Hx Cardiac Catheterization: Yes (angioplasty 7 stents) Hx Coronary Stent: Yes - Anesthesia Hx Anesthesia: Yes Hx Anesthesia Reactions: No Hx Malignant Hyperthermia: No - Suicidal Assessment Feels Threatened In Home Enviroment: No Family/Social History - Physician Review Nursing Documentation Reviewed: Yes Family/Social History: No Known Family HX Smoking Status: Former Smoker Hx Alcohol Use: No Hx Substance Use: No Hx Substance Use Treatment: No Allergies/Home Meds Allergies/Adverse Reactions: Allergies FISH Allergy (Mild, Verified 05/03/17 06:23) ITCHING Home Medications: Home Meds Medication Instructions Recorded Confirmed Aspirin 325 mg PO DAILY 05/03/17 05/23/17 Clonazepam [Klonopin] 0.5 mg PO HS 05/03/17 05/23/17 DULoxetine [Cymbalta] 60 mg PO DAILY 05/03/17 05/23/17 Insulin Glargine,Hum.rec.anlog 28 unit SQ HS 05/03/17 05/23/17 [Lantus Solostar] Insulin Lispro Protamin/Lispro 38 unit SQ ACBHS 05/03/17 05/23/17 [Humalog Mix 75-25 Kwikpen] Levetiracetam [Keppra] 1,000 mg PO BID 05/03/17 05/23/17 Lisinopril [Zestril] 10 mg PO DIN 05/03/17 05/23/17 Metoprolol Tartrate [Lopressor] 50 mg PO BID 05/03/17 05/23/17 Potassium Chloride [Klor-Con] 20 meq PO DAILY 05/03/17 05/23/17 QUEtiapine [Seroquel] 100 mg PO HS 05/03/17 05/23/17 Ranitidine HCl [Acid Stock Wetter 150] 150 mg PO BID 05/03/17 05/23/17 Tamsulosin [Flomax] 0.4 mg PO HS 05/03/17 05/23/17 Ziprasidone [Geodon Cap] 60 mg PO BID 05/03/17 05/23/17 Review of Systems - Physician Review All systems were reviewed & negative as marked: Yes - Review of Systems Constitutional: Normal. absent: Fevers Eyes: Normal ENT: Normal Respiratory: Normal Cardiovascular: Normal Gastrointestinal: Normal. absent: Nausea, Vomiting Genitourinary Male: Normal Musculoskeletal: Normal Skin: Abscess Neurological: Normal Endocrine: Normal Hemo/Lymphatic: Normal Psychiatric: Normal Physical Exam Vital Signs Reviewed: Yes Vital Signs Temp Pulse Resp BP Pulse Ox 05/23/17 16:11 97.8 F 94 H 18 113/79 97 Temperature: Afebrile Blood Pressure: Normal Pulse: Regular Respiratory Rate: Normal Appearance: Positive for: Well-Appearing, Comfortable, Ill-Appearing Pain Distress: Mild Mental Status: Positive for: Alert and Oriented X 3 - Systems Exam Conjunctiva: Present: Normal Mouth: Present: Moist Mucous Membranes Neck: Present: Trachea Midline. No: Meningeal Signs Respiratory/Chest: Present: Clear to Auscultation, Good Air Exchange. No: Respiratory Distress, Accessory Muscle Use Cardiovascular: Present: Regular Rate and Rhythm, Normal S1, S2. No: Murmurs Abdomen: Present: Normal Bowel Sounds, Other (Right lateral abdominal wall tender mass 4#5 cm diameter, appears ecchymotic with surrounding erythema, some proximal streaking noted. No flactulance.). No: Tenderness, Distention, Peritoneal Signs, Rebound, Guarding Upper Extremity: Present: Normal Inspection, Normal ROM. No: Deformity Lower Extremity: Present: Normal ROM. No: Edema, CALF TENDERNESS, Swelling, Deformity Neurological: Present: GCS=15, Speech Normal Skin: Present: Warm, Dry, Normal Color. No: Rashes Psychiatric: Present: Alert, Oriented x 3, Normal Insight, Normal Concentration Medical Decision Making ED Course and Treatment: 05/23/17 On re-eval, pt remained unchanged. afebrile, hemodynamicaly stable. neck: Supple, (-) meningeal sign. Lungs: CTA B/L, BS equal B/L Abd: benign, (+) Right sided abdominal wall early abscess with cellulitis. neurologicaly intact. Blood work review, mild leukocytosis with left shift noted. Hyperglycemia. AG=14 Abd/pelvis CT review. Blood cx-pending. Case discussed with ED attending and admission recommend. case discussed with hospitalist and admission arranged. vice president business & corporate development notified about consult for DR. Rogers results review with pt, agrees with plan. - Lab Interpretations Lab Results: 05/23/17 16:40 05/23/17 16:40 Lab Results 05/23/17 16:40: Sodium 135, Potassium 4.2, Chloride 102, Carbon Dioxide 19 L, Anion Gap 18, BUN 19, Creatinine 0.8, Est GFR ( Amer) > 60, Est GFR (Non- Af Amer) > 60, Random Glucose 339 H*, Calcium 9.1, Total Bilirubin 0.6, AST 21, ALT 26, Alkaline Phosphatase 65, Total Protein 7.2, Albumin 3.8, Globulin 3.4, Albumin/Globulin Ratio 1.1 05/23/17 16:40: PT 11.8, INR 1.03, APTT 28.9 01/19/18 16:40: WBC 14.2 H D, RBC 5.21, Hgb 16.7 D, Hct 50.0, MCV 96.0, MCH 32.1, MCHC 33.4, RDW 13.1, Plt Count 166, MPV 13.6 H, Gran % 73.7 H, Lymph % ( Auto) 17.6 L, [place] % (Auto) 7.3 H, Eos % (Auto) 1.0 L, Baso % (Auto) 0.4, Gran # 10.47 H, Lymph # 2.5, [place] # 1.0 H, Eos # 0.1, Baso # 0.05 - RAD Interpretation Radiology Orders: 05/23/17 16:38 ABD & PELVIS W/O PO OR IV CONT [CT] Stat - Medication Orders Current Medication Orders: Discontinued Medications Sodium Chloride (Sodium Chloride 0.9%) 1,000 mls @ 999 mls/hr IV .Q1H1M STA Stop: 05/23/17 19:52 Last Admin: 05/23/17 19:07 Dose: 999 mls/hr eMAR Start Stop Document 05/23/17 19:07 AB (Rec: 05/23/17 19:07 AB [id number]) Intravenous Solution Start Date 05/23/17 Start Time 19:07 End Date 05/23/17 End time 20:07 Total Infusion Time 60 Piperacillin Sod/Tazobactam Sod (Zosyn 3.375 In Ns 100ml) 100 mls @ 200 mls/hr IVPB STAT STA PRN Reason: Protocol Stop: 05/23/17 19:21 Last Admin: 05/23/17 19:07 Dose: 200 mls/hr eMAR Start Stop Document 05/23/17 19:07 AB (Rec: 05/23/17 19:08 AB [id number]) Intravenous Solution Start Date 05/23/17 Start Time 19:08 End Date 05/23/17 End time 19:38 Total Infusion Time 30 Disposition/Present on Arrival - Present on Arrival Any Indicators Present on Arrival: No History of DVT/PE: No History of Uncontrolled Diabetes: Yes Urinary Catheter: No History of Decub. Ulcer: No History Surgical Site Infection Following: CABG - Mediastinitis - Disposition Have Diagnosis and Disposition been Completed?: Yes Diagnosis: Diabetes mellitus type 1, Cellulitis and abscess Disposition: HOSPITALIZED Disposition Time: 20:06 Patient Plan: Admission Patient Problems: Current Active Problems Problem Status Onset Cellulitis and abscess Acute Diabetes mellitus type 1 Acute Condition: STABLE Referrals: [email or web address], [Non-Staff] - Follow up with primary Forms: [employer] ([place])
[2017-05-23] MEDS ORDERED: Iohexol 350 MG/100 ML VIAL ONE (17:06)
[2017-05-23 17:22] LABS: BASO # 0.05 K/mm3 (0.0-2.0); BASO % 0.4 % (0.0-3.0); EOS # 0.1 (0.0-0.7); GRAN # 10.47 (1.4-6.5); GRAN % 73.7 % (50.0-68.0); HEMOGLOBIN 16.7 g/dL (14.0-18.0); LYMPH # 2.5 (1.2-3.4); LYMPH % 17.6 % (22.0-35.0); MEAN CORPUSCULAR HEMOGLOBIN 32.1 pg (25.0-35.0); MEAN CORPUSCULAR HGB CONC 33.4 g/dl (31.0-37.0); MEAN PLATELET VOLUME 13.6 fl (7.0-11.0); MONO % 7.3 % (1.0-6.0); RBC 5.21 10^6/uL (3.5-6.1); RED CELL DISTRIBUTION WIDTH 13.1 % (11.5-14.5); WHITE BLOOD COUNT 14.2 10^3/ul (4.5-11.0)
[2017-05-23 17:39] LABS: ALB/GLOB RATIO 1.1 (1.1-1.8); ALBUMIN 3.8 g/dL (3.0-4.8); ALT/SGPT 26 U/L (7-56); AST/SGOT 21 U/L (17-59); BLOOD UREA NITROGEN 19 mg/dL (7-21); CALCIUM 9.1 mg/dL (8.4-10.5); GFR AFRICAN-AMERICAN > 60; GFR NON-AFRICAN AMERICAN > 60
[2017-05-23 17:42] LABS: PARTIAL THROMBOPLASTIN TIME 28.9 Seconds (25.1-36.5)
[2017-05-23 17:58] LABS: INR 1.03 (0.93-1.08); PROTHROMBIN TIME 11.8 SECONDS (9.4-12.5)
[2017-05-23] MEDS ORDERED: Piperacillin/Tazobact 3.375 gm 100 ML IVPB STA (18:52)
[2017-05-23] MEDS ORDERED: Sodium Chloride 0.9% 1,000 ML IV STA (18:52)
[2017-05-23 20:39] LABS: URINE BILIRUBIN NEGATIVE (NEGATIVE); URINE BLOOD SMALL (NEGATIVE); URINE GLUCOSE (UA) >=1000 mg/dL (NEGATIVE); URINE LEUKOCYTE ESTERASE MODERATE Leu/uL (NEGATIVE); URINE NITRATE NEGATIVE (NEGATIVE); URINE PROTEIN TRACE mg/dL (<30 mg/dL); URINE UROBILINOGEN 0.2 E.U./dL (<1 E.U./dL)
[2017-05-23 20:59] LABS: URINE APPEARANCE SL CLOUDY (CLEAR); URINE COLOR YELLOW (YELLOW)
[2017-05-23 21:01] LABS: URINE BACTERIA MANY (NEG); URINE WBC TNTC /hpf (0-6)
--- NOTE | 2017-05-23 21:13 | CT ---
EXAM: CT Abdomen and Pelvis Without Intravenous Contrast CLINICAL HISTORY: 56 years old, male; Pain; Abdominal pain; Localized; Right; Additional info: Right sided painful mass R/O abscess TECHNIQUE: Axial computed tomography images of the abdomen and pelvis without intravenous contrast. All CT scans at this facility use one or more dose reduction techniques, viz.: automated exposure control; ma/kV adjustment per patient size (including targeted exams where dose is matched to indication; i.e. head); or iterative reconstruction technique. Coronal and sagittal reformatted images were created and reviewed. COMPARISON: No relevant prior studies available. FINDINGS: Limitations: Lack of intravenous contrast. Lower thorax: Minimal atelectasis/scarring. Mild focal consolidation posterior periphery left lower lobe. Coronary artery calcifications. Small hiatal hernia. ABDOMEN: Liver: Cluster of calcifications within right lobe. Gallbladder and bile ducts: Calcified gallstones. No significant ductal dilation. Pancreas: Unremarkable. No ductal dilation. Spleen: No splenomegaly. Adrenals: No mass. Kidneys and ureters: [id number] stranding about kidneys, nonspecific. Mild scarring of left kidney. No renal calculi. No hydronephrosis. Stomach and bowel: No definite mural thickening. No obstruction. Appendix: No findings to suggest acute appendicitis. PELVIS: Bladder: Unremarkable. No stones. Reproductive: Unremarkable as visualized. ABDOMEN and PELVIS: Intraperitoneal space: Small free fluid within abdomen. No free air. Bones/joints: No acute fracture. Soft tissues: Focal skin thickening right lateral abdominal wall with mild focal stranding within subjacent subcutaneous tissues. Small umbilical hernia containing fat. Small RIGHT inguinal hernia containing fat. Large LEFT inguinal hernia containing fat, incompletely imaged. Vasculature: Mild atherosclerotic disease. No aneurysm. Lymph nodes: No pathologically enlarged lymph nodes. Tubes, lines and devices: Shunt terminating within right upper quadrant. IMPRESSION: 1. Probable abdominal wall cellulitis with subjacent inflammation. Phlegmon or early abscess difficult to exclude. 2. Left lower lobe atelectasis versus pneumonia. 3. Incidental/non-acute findings are described above.
[2017-05-23] MEDS ORDERED: Sodium Chloride 0.9% 1,000 ML IV SCH (21:15)
--- NOTE | 2017-05-23 21:24 | CP.PCM.HP ---
History of Present Illness - History of Present Illness History of Present Illness: Chief complaint: Swelling at site of insulin injection x 6 days HPI: 48 yo m with past medical history of diabetes mellitus, hypertension, coronary artery disease s/p 8 stents, hyperlipidemia, systolic heart failure EF 34%, and cerebrovascular accident presents to the Emergency department via taxi with complaints of lower right quadrant swelling and pain at site of insulin injection. He states he first noticed the swelling six days ago. Patient has a h /o abscess but MRSA status is unknown. He describes the pain as dull, burning, constant, and 9/10 severity without radiation. It is worsened by movement and nothing makes it better. He has not tried any pain medications.The abscess measures 10cm x 7cm. Denies any drainage from wound, fever, chills, nausea, vomiting, diarrhea, constipation, shortness of breath, chest pain. PMD could not recall patient's name Family History non-contributory Surgical History appendectomy, ventral hernia repair 2013, PATTERNATOR shunt for NPH Social History quit 10 years ago, denies current alcohol consumption, denies illicit drug use Medications please refer to MAR Present on Admission - Present on Admission Any Indicators Present on Admission: Yes History of Uncontrolled Diabetes: Yes Review of Systems - Constitutional Constitutional: absent: Chills, Fever - EENT Eyes: Blurred Vision, Change in Vision. absent: Diplopia - Respiratory Respiratory: absent: Cough, Hemoptysis, Wheezing - Gastrointestinal Gastrointestinal: Abdominal Pain. absent: Diarrhea, Nausea, Vomiting - Musculoskeletal Musculoskeletal: absent: Back Pain - Integumentary Integumentary: Wounds. absent: Bleeding Lesions Additional comments: burning - Neurological Neurological: Numbness (left and right feet), Tingling (left and right feet). absent: Dizziness, Radicular Pain - Hematologic/Lymphatic Hematologic: absent: Easy Bleeding, Easy Bruising Past Patient History - Infectious Disease Hx of Infectious Diseases: None - Tetanus Immunizations Tetanus Immunization: Unknown - Past Medical History & Family History Past Medical History?: Yes - Past Social History Smoking Status: Former Smoker - CARDIAC Hx Cardiac Disorders: Yes Hx Heart Attack: Yes Hx Hypertension: Yes - PULMONARY Hx Chronic Obstructive Pulmonary Disease (COPD): Yes Hx Sleep Apnea: Yes (on bipap) - NEUROLOGICAL HX Cerebrovascular Accident: Yes - HEENT Hx HEENT Problems: No - RENAL Hx Chronic Kidney Disease: No - ENDOCRINE/METABOLIC Hx Diabetes Mellitus Type 1: Yes - HEMATOLOGICAL/ONCOLOGICAL Hx Blood Disorders: Yes (blood transfusion) - INTEGUMENTARY Hx Dermatological Problems: No - MUSCULOSKELETAL/RHEUMATOLOGICAL Hx Falls: Yes - GASTROINTESTINAL Hx Gastrointestinal Disorders: Yes - GENITOURINARY/GYNECOLOGICAL Hx Prostate Problems: Yes - PSYCHIATRIC Hx Anxiety: Yes Hx Bipolar Disorder: Yes Hx Depression: Yes Hx Hallucinations: Yes Hx Schizophrenia: Yes Hx Substance Use: No - SURGICAL HISTORY Hx Appendectomy: Yes Hx Cardiac Catheterization: Yes (angioplasty 7 stents) Hx Coronary Stent: Yes - ANESTHESIA Hx Anesthesia: Yes Hx Anesthesia Reactions: No Hx Malignant Hyperthermia: No Meds Allergies/Adverse Reactions: Allergies Allergy/AdvReac Type Severity Reaction Status Date / Time FISH Allergy Mild ITCHING Verified 05/03/17 06:23 Physical Exam - Constitutional Appears: Non-toxic, No Acute Distress - Head Exam Head Exam: ATRAUMATIC, NORMAL INSPECTION, NORMOCEPHALIC - Eye Exam Eye Exam: EOMI - ENT Exam ENT Exam: Mucous Membranes Moist, Normal Exam - Neck Exam Neck exam: Positive for: Normal Inspection - Respiratory Exam Respiratory Exam: Rhonchi, NORMAL BREATHING PATTERN. absent: Wheezes - Cardiovascular Exam Cardiovascular Exam: REGULAR RHYTHM, +S1, +S2 - GI/Abdominal Exam GI & Abdominal Exam: Distended, Soft, Tenderness (diffuse upon palpation) Additional comments: swelling at site of insulin injection in RLQ - Extremities Exam Extremities exam: Negative for: calf tenderness, pedal edema, tenderness - Back Exam Back exam: NORMAL INSPECTION. absent: CVA tenderness (L), CVA tenderness (R) - Neurological Exam Neurological exam: Alert, CN II-XII Intact, Oriented x3 - Skin Skin Exam: Erythema (at site of wound), Warm Additional comments: Induration and erythema at site of cellulitic abscess 10x7 cm Results - Vital Signs Recent Vital Signs: Last Vital Signs Temp 97.8 F 05/23/17 16:11 Pulse 94 H 05/23/17 16:11 Resp 18 05/23/17 16:11 BP 113/79 05/23/17 16:11 Pulse Ox 97 05/23/17 16:11 - Labs Result Diagrams: 05/23/17 16:40 05/23/17 16:40 Labs: Laboratory Results - last 24 hr 05/23/17 05/23/17 05/23/17 16:40 16:40 16:40 WBC 14.2 H D RBC 5.21 Hgb 16.7 D Hct 50.0 MCV 96.0 MCH 32.1 MCHC 33.4 RDW 13.1 Plt Count 166 MPV 13.6 H Gran % 73.7 H Lymph % (Auto) 17.6 L [place] % (Auto) 7.3 H Eos % (Auto) 1.0 L Baso % (Auto) 0.4 Gran # 10.47 H Lymph # 2.5 [place] # 1.0 H Eos # 0.1 Baso # 0.05 PT 11.8 INR 1.03 APTT 28.9 Sodium 135 Potassium 4.2 Chloride 102 Carbon Dioxide 19 L Anion Gap 18 BUN 19 Creatinine 0.8 Est GFR ( Amer) > 60 Est GFR (Non-Af Amer) > 60 Random Glucose 339 H* Calcium 9.1 Total Bilirubin 0.6 AST 21 ALT 26 Alkaline Phosphatase 65 Total Protein 7.2 Albumin 3.8 Globulin 3.4 Albumin/Globulin Ratio 1.1 Urine Color Urine Appearance Urine pH Ur Specific [place] Urine Protein Urine Glucose (UA) Urine Ketones Urine Blood Urine Nitrate Urine Bilirubin Urine Urobilinogen Ur Leukocyte Esterase Urine RBC Urine WBC Ur Epithelial Cells Urine Bacteria 05/23/17 20:20 WBC RBC Hgb Hct MCV MCH MCHC RDW Plt Count MPV Gran % Lymph % (Auto) [place] % (Auto) Eos % (Auto) Baso % (Auto) Gran # Lymph # [place] # Eos # Baso # PT INR APTT Sodium Potassium Chloride Carbon Dioxide Anion Gap BUN Creatinine Est GFR ( Amer) Est GFR (Non-Af Amer) Random Glucose Calcium Total Bilirubin AST ALT Alkaline Phosphatase Total Protein Albumin Globulin Albumin/Globulin Ratio Urine Color Yellow Urine Appearance Sl cloudy Urine pH 6.0 Ur Specific [place] 1.015 Urine Protein Trace H Urine Glucose (UA) >=1000 Urine Ketones Negative Urine Blood Small H Urine Nitrate Negative Urine Bilirubin Negative Urine Urobilinogen 0.2 Ur Leukocyte Esterase Moderate H Urine RBC 10 - 15 Urine WBC Tntc Ur Epithelial Cells 6 - 8 Urine Bacteria Many Assessment & Plan - Assessment and Plan (Free Text) Assessment: 48 yo m with past medical history of diabetes mellitus, hypertension, coronary artery disease s/p 8 stents, hyperlipidemia, systolic heart failure EF 34%, and cerebrovascular accident presents to the Emergency department via taxi with complaints of lower right quadrant abscess. Plan: Abdominal Cellulitis -General surgery consulted -Vancomycin and Zosyn -Wound, blood cultures ordered results pending Hospital acquired Pneumonia -CT imaging reveals pneumonia/atelectasis in left lower lobe -Continue with abx regimen for abdominal cellulitis; vancomycin and zosyn -Procalcitonin ordered; results pending Urinary Tract infection -Urine cultures ordered; results pending -Continue current antibiotic regimen HTN/Hx of CAD w/ stent placement -Continue ASA, Lipitor, Plavix -Lipid panel ordered; results pending Hx of CVA -Continue lipitor, keppra Hx of Systolic CHF -Continue Imdur,Metoprolol Tartrate,Lisinopril,Lasix Diabetes Mellotus II -Home Lispro 35 Units SC ACBHS -ISS-High -q6ACHS -HgA1C ordered; results pending -Diabetic diet Psych -Continue cymbalta, klonopin, seroquel, geodon DVT/GI prophylaxis Heparin/Pepcid
[2017-05-23] MEDS: Insulin Reg-HIGH-Coverage SC SCH (22:30)
[2017-05-23] MEDS: Sodium Chloride 0.9% 1,000 ML IV SCH (23:35)
[2017-05-24] MEDS: Piperacillin/Tazobact 3.375 gm 100 ML IVPB SCH ×4 (00:18→17:32)
--- NOTE | 2017-05-24 06:01 | CP.PCM.CON ---
History of Present Illness - History of Present Illness History of Present Illness: Surgery Consult: Dr. Vila Pt is a 56M with PMHx of DM, HTN, CAD s/p stents, CHF, HLD, CVA & schizophrenia who presents to [facility] [place] for complaints of R abdominal wall cellulitis. As per the pt , about 6 days ago he noticed a little red bump on the R lower quadrant of his abdomen that kept getting bigger. He attributes the swelling/erythema to his insulin injections. Pt states the redness got worse and the area became painful so he decided to come to ER. He denies any other associated symptoms such as F/ C. Pt states he has never had a similar problem in the past. In the ER, a CT abdomen pelvis was obtained and shows R abdominal wall cellulitis with early abscess or phlegmon. Currently, pt is resting comfortably in bed. States it only hurts when someone pushes on the area but otherwise denies complaints. Denies N/V, F/C, chest pain or SOB. PMHx: as listed above PSHx: appy, R inguinal hernia repair SocialHx: former smoker, denies EtOH/drugs All: fish Review of Systems - Review of Systems All systems: reviewed and no additional remarkable complaints except (as per HPI ) Past Patient History - Infectious Disease Hx of Infectious Diseases: None - Tetanus Immunizations Tetanus Immunization: Unknown - Past Medical History & Family History Past Medical History?: Yes - Past Social History Smoking Status: Former Smoker - CARDIAC Hx Cardiac Disorders: Yes Hx Hypertension: Yes - PULMONARY Hx Chronic Obstructive Pulmonary Disease (COPD): Yes Hx Sleep Apnea: Yes (on bipap) - NEUROLOGICAL HX Cerebrovascular Accident: Yes - HEENT Hx HEENT Problems: No - RENAL Hx Chronic Kidney Disease: No - ENDOCRINE/METABOLIC Hx Diabetes Mellitus Type 1: Yes - HEMATOLOGICAL/ONCOLOGICAL Hx Blood Disorders: Yes (blood transfusion) - INTEGUMENTARY Hx Dermatological Problems: No - GENITOURINARY/GYNECOLOGICAL Hx Prostate Problems: Yes - PSYCHIATRIC Hx Anxiety: Yes Hx Bipolar Disorder: Yes Hx Depression: Yes Hx Hallucinations: Yes Hx Schizophrenia: Yes Hx Substance Use: No - SURGICAL HISTORY Hx Appendectomy: Yes Hx Cardiac Catheterization: Yes (angioplasty 7 stents) Hx Coronary Stent: Yes - ANESTHESIA Hx Anesthesia: Yes Hx Anesthesia Reactions: No Hx Malignant Hyperthermia: No Meds Allergies/Adverse Reactions: Allergies Allergy/AdvReac Type Severity Reaction Status Date / Time FISH Allergy Mild ITCHING Verified 05/03/17 06:23 - Medications Medications: Current Medications Atorvastatin Calcium (Lipitor) 20 mg PO DIN [facility] Clonazepam (Klonopin) 0.5 mg PO HS [facility] PRN Reason: Protocol Last Admin: 05/23/17 22:10 Dose: 0.5 mg Clopidogrel Bisulfate (Plavix) 75 mg PO DAILY [facility] Duloxetine HCl (Cymbalta) 60 mg PO DAILY [facility] Famotidine (Pepcid) 20 mg IVP DAILY [facility] Vancomycin HCl (Vancomycin 1gm) 1 gm in 250 mls @ 167 mls/hr IVPB DAILY [facility] PRN Reason: Protocol Piperacillin Sod/Tazobactam Sod (Zosyn 3.375 In Ns 100ml) 100 mls @ 200 mls/hr IVPB Q6 [facility] PRN Reason: Protocol Stop: 05/24/17 06:29 Last Admin: 05/24/17 05:41 Dose: 200 mls/hr Sodium Chloride (Sodium Chloride 0.9%) 1,000 mls @ 100 mls/hr IV .Q10H [facility] Last Admin: 05/23/17 23:35 Dose: 100 mls/hr Insulin Human Regular (Humulin R High) 0 units SC ACHS [facility] PRN Reason: Protocol Last Admin: 05/23/17 22:30 Dose: Not Given Isosorbide Mononitrate (Imdur) 60 mg PO DAILY [facility] Levetiracetam (Keppra) 1,000 mg PO BID [facility] Lisinopril (Zestril) 10 mg PO DIN [facility] Metoprolol Tartrate (Lopressor) 50 mg PO BID [facility] Quetiapine Fumarate (Seroquel) 100 mg PO HS [facility] PRN Reason: Protocol Last Admin: 05/23/17 22:31 Dose: 100 mg Tamsulosin HCl (Flomax) 0.4 mg PO HS [facility] Last Admin: 05/23/17 22:10 Dose: 0.4 mg Ziprasidone (Geodon Cap) 60 mg PO BID [facility] PRN Reason: Protocol Physical Exam - Constitutional Appears: Well, No Acute Distress - Head Exam Head Exam: ATRAUMATIC, NORMOCEPHALIC - Eye Exam Eye Exam: Normal appearance - ENT Exam ENT Exam: Mucous Membranes Moist - Respiratory Exam Respiratory Exam: NORMAL BREATHING PATTERN - Cardiovascular Exam Cardiovascular Exam: Tachycardia - GI/Abdominal Exam GI & Abdominal Exam: Soft, Tenderness (around R lower quadrant cellulitis, abscess measuring 4x5cm with induration. No fluctuance/drainage noted. ). absent: Distended - Neurological Exam Neurological exam: Alert, Oriented x3 - Skin Skin Exam: Dry, Warm Results - Vital Signs Recent Vital Signs: Last Vital Signs Temp 98.1 F 05/23/17 23:30 Pulse 103 H 05/23/17 23:30 Resp 20 05/23/17 23:30 BP 135/79 05/23/17 23:30 Pulse Ox 100 05/23/17 23:00 - Labs Result Diagrams: 05/23/17 16:40 05/23/17 16:40 Labs: Laboratory Results - last 24 hr 05/23/17 05/24/17 20:20 00:10 APTT 31.0 Urine Color Yellow Urine Appearance Sl cloudy Urine pH 6.0 Ur Specific [place] 1.015 Urine Protein Trace H Urine Glucose (UA) >=1000 Urine Ketones Negative Urine Blood Small H Urine Nitrate Negative Urine Bilirubin Negative Urine Urobilinogen 0.2 Ur Leukocyte Esterase Moderate H Urine RBC 10 - 15 Urine WBC Tntc Ur Epithelial Cells 6 - 8 Urine Bacteria Many - Imaging and Cardiology CT scan - abdomen Status: Image reviewed by me, Report reviewed by me Assessment & Plan - Assessment and Plan (Free Text) Assessment: 56M with R abdominal wall abscess/cellulitis Plan: - Cont IV Abx - apply warm compresses to the area, will re-evaluate for bedside I&D this AM - d/w Dr. Julito Lopez, PGY-3 Surgery
[2017-05-24 08:20] LABS: ALB/GLOB RATIO 1.1 (1.1-1.8); ALBUMIN 3.5 g/dL (3.0-4.8); ALT/SGPT 25 U/L (7-56); AST/SGOT 12 U/L (17-59); BLOOD UREA NITROGEN 19 mg/dL (7-21); CALCIUM 8.7 mg/dL (8.4-10.5); GFR AFRICAN-AMERICAN > 60; GFR NON-AFRICAN AMERICAN > 60; HDL CHOLESTEROL 31 mg/dL (29-60); LDL CHOLESTEROL 40 mg/dL (0-129)
[2017-05-24 08:44] LABS: BASO # 0.04 K/mm3 (0.0-2.0); BASO % 0.3 % (0.0-3.0); EOS # 0.1 (0.0-0.7); EOS % 1.1 % (1.5-5.0); GRAN # 8.58 (1.4-6.5); GRAN % 71.1 % (50.0-68.0); HEMOGLOBIN 15.6 g/dL (14.0-18.0); LYMPH # 2.2 (1.2-3.4); LYMPH % 18.5 % (22.0-35.0); MEAN CELL VOLUME 95.1 fl (80.0-105.0); MEAN CORPUSCULAR HEMOGLOBIN 31.6 pg (25.0-35.0); MEAN CORPUSCULAR HGB CONC 33.3 g/dl (31.0-37.0); MEAN PLATELET VOLUME 13.2 fl (7.0-11.0); MONO # 1.1 (0.1-0.6); RBC 4.93 10^6/uL (3.5-6.1); RED CELL DISTRIBUTION WIDTH 13.1 % (11.5-14.5); WHITE BLOOD COUNT 12.1 10^3/ul (4.5-11.0)
[2017-05-24] MEDS: Insulin Reg-HIGH-Coverage SC SCH ×4 (09:30→22:17)
[2017-05-24] MEDS ORDERED: Vancomycin 1gm in NS 250ml 1 GM/250 ML BAG IVPB SCH ×2 (10:00→18:15)
[2017-05-24] MEDS: Insulin Lispro (humaLOG) MIX 75/25(10 ml) SC SCH ×2 (10:50→22:20)
[2017-05-24] MEDS ORDERED: Morphine 2 mg/ml ISec IVP ONE (12:41)
--- NOTE | 2017-05-24 13:33 | CP.PCM.PN ---
<Jamaal Vila - Last Filed: 05/24/17 14:35> Subjective - Date & Time of Evaluation Date of Evaluation: 05/24/17 Time of Evaluation: 13:25 - Subjective Subjective: MEDICINE PROGRESS NOTE Patient seen and assessed at bedside. No acute events overnight noted by patient or nursing staff. Patient reports no complaints at this time. He denies fever, chills, headache, changes in his vision, rhinorrhea, sore throat, chest pain, palpitations, syncope, dizziness, SOB, cough, wheezing, abdominal pain, N/ V, diarrhea, constipation, burning/pain with urination or any numbness/tingling of any extremity. Objective - Vital Signs/Intake and Output Vital Signs (last 24 hours): Temp Pulse Resp BP Pulse Ox 98.6 F 117 H 109 H 148/89 95 05/24/17 06:00 05/24/17 06:00 05/24/17 06:00 05/24/17 09:28 05/24/17 06:00 Intake and Output: 05/24/17 05/24/17 06:59 18:59 Intake Total 0 Balance 0 - Medications Medications: Current Medications Aspirin (Ecotrin) 81 mg PO 0800 [facility] Last Admin: 05/24/17 09:28 Dose: 81 mg Atorvastatin Calcium (Lipitor) 20 mg PO DIN [facility] Clonazepam (Klonopin) 0.5 mg PO HS [facility] PRN Reason: Protocol Last Admin: 05/23/17 22:10 Dose: 0.5 mg Clopidogrel Bisulfate (Plavix) 75 mg PO DAILY [facility] Last Admin: 05/24/17 09:28 Dose: 75 mg Duloxetine HCl (Cymbalta) 60 mg PO DAILY [facility] Last Admin: 05/24/17 09:28 Dose: 60 mg Famotidine (Pepcid) 20 mg IVP DAILY [facility] Last Admin: 05/24/17 09:29 Dose: 20 mg Furosemide (Lasix) 40 mg PO DAILY [facility] Last Admin: 05/24/17 09:28 Dose: 40 mg Vancomycin HCl (Vancomycin 1gm) 1 gm in 250 mls @ 167 mls/hr IVPB DAILY [facility] PRN Reason: Protocol Last Admin: 05/24/17 09:31 Dose: 167 mls/hr Sodium Chloride (Sodium Chloride 0.9%) 1,000 mls @ 100 mls/hr IV .Q10H [facility] Last Admin: 05/23/17 23:35 Dose: 100 mls/hr Piperacillin Sod/Tazobactam Sod (Zosyn 3.375 In Ns 100ml) 100 mls @ 200 mls/hr IVPB Q6 [facility] PRN Reason: Protocol Stop: 05/24/17 18:29 Last Admin: 05/24/17 12:46 Dose: 200 mls/hr Insulin Detemir (Levemir) 14 unit SC Q12H [facility] Insulin Human Regular (Humulin R High) 0 units SC ACHS [facility] PRN Reason: Protocol Last Admin: 05/24/17 12:47 Dose: 15 units Insulin Lispro Protam/Lispro Human (Humalog Mix 75/25) 38 units SC ACBHS [facility] Last Admin: 05/24/17 10:50 Dose: 38 units Isosorbide Mononitrate (Imdur) 60 mg PO DAILY [facility] Last Admin: 05/24/17 09:28 Dose: 60 mg Levetiracetam (Keppra) 1,000 mg PO BID [facility] Last Admin: 05/24/17 09:28 Dose: 1,000 mg Lisinopril (Zestril) 10 mg PO DIN [facility] Metoprolol Tartrate (Lopressor) 50 mg PO BID [facility] Last Admin: 05/24/17 09:28 Dose: 50 mg Quetiapine Fumarate (Seroquel) 100 mg PO [facility] PRN Reason: Protocol Last Admin: 05/23/17 22:31 Dose: 100 mg Tamsulosin HCl (Flomax) 0.4 mg PO [facility] Last Admin: 05/23/17 22:10 Dose: 0.4 mg Ziprasidone (Geodon Cap) 60 mg PO BID [facility] PRN Reason: Protocol Last Admin: 05/24/17 09:28 Dose: 60 mg - Labs Labs: 05/24/17 07:30 05/24/17 07:30 PT 11.8 SECONDS (9.4-12.5) 05/23/17 16:40 INR 1.03 (0.93-1.08) 05/23/17 16:40 APTT 31.0 Seconds (25.1-36.5) 05/24/17 00:10 - Constitutional Appears: Non-toxic, No Acute Distress - Head Exam Head Exam: ATRAUMATIC, NORMAL INSPECTION, NORMOCEPHALIC - Eye Exam Eye Exam: EOMI, Normal appearance, PERRL Pupil Exam: NORMAL ACCOMODATION, PERRL - ENT Exam ENT Exam: Mucous Membranes Moist, Normal Exam - Neck Exam Neck Exam: Full ROM, Normal Inspection. absent: Lymphadenopathy - Respiratory Exam Respiratory Exam: Clear to Ausculation Bilateral, NORMAL BREATHING PATTERN. absent: Accessory Muscle Use, Chest Wall Tenderness, Decreased Breath Sounds, Prolonged Expiratory Phase, Rales, Rhonchi, Wheezes, Respiratory Distress, Stridor - Cardiovascular Exam Cardiovascular Exam: REGULAR RHYTHM, RRR, +S1, +S2. absent: Bradycardia, Tachycardia, Clicks, Diastolic murmur, Gallop, Irregular Rhythm, JVD, Rubs, +S4 , Murmur - GI/Abdominal Exam GI & Abdominal Exam: Soft, Normal Bowel Sounds. absent: Bruit, Distended, Firm , Guarding, Rigid, Tenderness, Diminished Bowel Sounds, Hernia, Hyperactive Bowel Sounds, Hypoactive Bowel Sounds, Organomegaly, Pulsatile Mass, Rebound, Mass Additional comments: Approximately 4cm area of cellulitis with induration and surrounding erythema noted in RLQ; No purulent drainage or areas of fluctuance - Extremities Exam Extremities Exam: Full ROM, Normal Capillary Refill, Normal Inspection. absent : Calf Tenderness, Joint Swelling, Pedal Edema, Tenderness - Back Exam Back Exam: Full ROM, NORMAL INSPECTION. absent: CVA tenderness (L), CVA tenderness (R), muscle spasm, paraspinal tenderness, rash noted, tenderness, vertebral tenderness - Neurological Exam Neurological Exam: Alert, Awake, CN II-XII Intact, Oriented x3 - Psychiatric Exam Psychiatric exam: Normal Affect, Normal Mood - Skin Skin Exam: Dry, Intact, Normal Color, Warm Assessment and Plan - Assessment and Plan (Free Text) Assessment: 56 year old male with a past medical history significant for DM2, HTN, CAD s/p 8 NATE, HLD, CHF (EF of 34%), and CVA presents with complaints of RLQ cellulitis at his insulin injection site. Plan: 1. Cellulitis of RLQ Abdominal Wall -CT Abdomen/Pelvis showing abdominal wall cellulitis with subjacent inflammation and noted phlegmon/early abscess difficult to exclude -Patient noted to be afebrile, non-tachypneic but with tachycardia and a leukocytosis of 12.1 -Blood/wound cultures and procalcitonin pending -IV Vancomycin and Zosyn for empiric coverage -Surgery to perform bedside I&D today -Surgery and ID consulted, all recommendations appreciated 2. LLL Pneumonia/Atelectasis -CT Abdomen/Pelvis showing LLL pneumonia/atelectasis -HCAP risk factors: Recent hospitalization within 90 days -Patient noted to be afebrile, non-tachypneic but with tachycardia and a leukocytosis of 12.1 -Blood cultures and procalcitonin pending -IV Vancomycin and Zosyn for empiric coverage -ID Consulted, all recommendations appreciated 3. Urinary Tract Infection -UA showing no nitrates, moderate LE, too numerous to count WBC's and many bacteria -Patient noted to be afebrile, non-tachypneic but with tachycardia and a leukocytosis of 12.1 -Urine/blood cultures and procalcitonin pending -IV Vancomycin and Zosyn for empiric coverage -Normal Saline at 100mls/hr -ID consulted, all recommendations appreciated 4. History of DM2 -SSI-high and Accuchecks Q6ACHS -Humalog Mix 75/25 38u SC ACBHS and Levemir 14u SC Q12H -A1C pending -Carbohydrate Consistent Diet -Architecture Intern consulted, all recommendations appreciated 5. History of CAD s/p 8 NATE -Continue ASA and Plavix 6. History of CHF -Continue Lasix and Imdur 7. History of HTN -Continue Metoprolol and Lisinopril 8. History of HLD -Lipid panel showing elevated TG of 178 and normal levels of total cholesterol, HDL and LDL -Continue Lipitor 9. History of CVA -Continue Keppra 10. History of MDD -Continue Cymbalta 11. History of Anxiety -Continue Klonopin 12. History of Schizophrenia -Continue Geodon and Seroquel GI Prophylaxis: Pepcid DVT Prophylaxis: SCD's Patient seen and case discussed with attending, Dr. Savage. <Altagracia Savage - Last Filed: 05/24/17 15:03> Objective - Vital Signs/Intake and Output Vital Signs (last 24 hours): Temp Pulse Resp BP Pulse Ox 98.6 F 117 H 109 H 148/89 95 05/24/17 06:00 05/24/17 06:00 05/24/17 06:00 05/24/17 09:28 05/24/17 06:00 Intake and Output: 05/24/17 05/24/17 06:59 18:59 Intake Total 0 Balance 0 - Medications Medications: Current Medications Aspirin (Ecotrin) 81 mg PO 0800 [facility] Last Admin: 05/24/17 09:28 Dose: 81 mg Atorvastatin Calcium (Lipitor) 20 mg PO DIN [facility] Clonazepam (Klonopin) 0.5 mg PO HS [facility] PRN Reason: Protocol Last Admin: 05/23/17 22:10 Dose: 0.5 mg Clopidogrel Bisulfate (Plavix) 75 mg PO DAILY [facility] Last Admin: 05/24/17 09:28 Dose: 75 mg Duloxetine HCl (Cymbalta) 60 mg PO DAILY [facility] Last Admin: 05/24/17 09:28 Dose: 60 mg Famotidine (Pepcid) 20 mg IVP DAILY [facility] Last Admin: 05/24/17 09:29 Dose: 20 mg Furosemide (Lasix) 40 mg PO DAILY [facility] Last Admin: 05/24/17 09:28 Dose: 40 mg Vancomycin HCl (Vancomycin 1gm) 1 gm in 250 mls @ 167 mls/hr IVPB DAILY [facility] PRN Reason: Protocol Last Admin: 05/24/17 09:31 Dose: 167 mls/hr Sodium Chloride (Sodium Chloride 0.9%) 1,000 mls @ 100 mls/hr IV .Q10H [facility] Last Admin: 05/23/17 23:35 Dose: 100 mls/hr Piperacillin Sod/Tazobactam Sod (Zosyn 3.375 In Ns 100ml) 100 mls @ 200 mls/hr IVPB Q6 [facility] PRN Reason: Protocol Stop: 05/24/17 18:29 Last Admin: 05/24/17 12:46 Dose: 200 mls/hr Insulin Detemir (Levemir) 14 unit SC Q12H [facility] Insulin Human Regular (Humulin R High) 0 units SC ACHS [facility] PRN Reason: Protocol Last Admin: 05/24/17 12:47 Dose: 15 units Insulin Lispro Protam/Lispro Human (Humalog Mix 75/25) 38 units SC ACBHS [facility] Last Admin: 05/24/17 10:50 Dose: 38 units Isosorbide Mononitrate (Imdur) 60 mg PO DAILY [facility] Last Admin: 05/24/17 09:28 Dose: 60 mg Levetiracetam (Keppra) 1,000 mg PO BID [facility] Last Admin: 05/24/17 09:28 Dose: 1,000 mg Lisinopril (Zestril) 10 mg PO DIN [facility] Metoprolol Tartrate (Lopressor) 50 mg PO BID [facility] Last Admin: 05/24/17 09:28 Dose: 50 mg Quetiapine Fumarate (Seroquel) 100 mg PO HS [facility] PRN Reason: Protocol Last Admin: 05/23/17 22:31 Dose: 100 mg Tamsulosin HCl (Flomax) 0.4 mg PO HS [facility] Last Admin: 05/23/17 22:10 Dose: 0.4 mg Ziprasidone (Geodon Cap) 60 mg PO BID [facility] PRN Reason: Protocol Last Admin: 05/24/17 09:28 Dose: 60 mg - Labs Labs: 05/24/17 07:30 05/24/17 07:30 PT 11.8 SECONDS (9.4-12.5) 05/23/17 16:40 INR 1.03 (0.93-1.08) 05/23/17 16:40 APTT 31.0 Seconds (25.1-36.5) 05/24/17 00:10 Attending/Attestation - Attestation I have personally seen and examined this patient.: Yes I have fully participated in the care of the patient.: Yes I have reviewed all pertinent clinical information, including history, physical exam and plan: Yes Notes (Text): 05/24/17 14:59 56 year old male with past medical history of diabetes, hypertension, CAD s/p stents, CHF, and CVA who presents with RLQ pain and erythema. CT abd/pelvis showed abdominal wall cellulitis with possible early abscess / phlegmon and LLL pneumonia / atelectasis. Surgery evaluation was appreciated; plan is for possible bedside I&D. Continue with iv antibiotics for cellulitis/abscess, UTI and possible pneumonia. ID evaluation was requested. Continue with humalog and levemir for diabetes. Continue with home medications for CAD/CHF. Altagracia Savage MD Hospitalist.
--- NOTE | 2017-05-24 15:41 | CP.PCM.PN ---
Subjective - Date & Time of Evaluation Date of Evaluation: 05/24/17 Time of Evaluation: 11:30 - Subjective Subjective: PRE-OP DIAGNOSIS: ABD wall abscess POST-OP DIAGNOSIS: Same PROCEDURE: incision and drainage of abscess PROCEDURE: A timeout protocol was performed prior to initiating the procedure. The area was prepared and draped in the usual, sterile manner. The site was anesthetized with 1% lidocaine w/o epinephrine in a field block manner. A linear incision along the local skin lines was made and the purulent material expressed. The abscess was explored thoroughly and sequestered pockets were opened. Bleeding was minimal. Packin/2" plain was placed for homeostasis Sterile dressing was applied. The patient tolerated the procedure well without complications. Objective - Vital Signs/Intake and Output Vital Signs (last 24 hours): Temp Pulse Resp BP Pulse Ox 98.6 F 117 H 109 H 148/89 95 05/24/17 06:00 05/24/17 06:00 05/24/17 06:00 05/24/17 09:28 05/24/17 06:00 Intake and Output: 05/24/17 05/24/17 06:59 18:59 Intake Total 0 Balance 0 - Medications Medications: Current Medications Aspirin (Ecotrin) 81 mg PO 0800 [facility] Last Admin: 05/24/17 09:28 Dose: 81 mg Atorvastatin Calcium (Lipitor) 20 mg PO DIN [facility] Clonazepam (Klonopin) 0.5 mg PO HS [facility] PRN Reason: Protocol Last Admin: 05/23/17 22:10 Dose: 0.5 mg Clopidogrel Bisulfate (Plavix) 75 mg PO DAILY [facility] Last Admin: 05/24/17 09:28 Dose: 75 mg Duloxetine HCl (Cymbalta) 60 mg PO DAILY [facility] Last Admin: 05/24/17 09:28 Dose: 60 mg Famotidine (Pepcid) 20 mg IVP DAILY [facility] Last Admin: 05/24/17 09:29 Dose: 20 mg Furosemide (Lasix) 40 mg PO DAILY [facility] Last Admin: 05/24/17 09:28 Dose: 40 mg Vancomycin HCl (Vancomycin 1gm) 1 gm in 250 mls @ 167 mls/hr IVPB DAILY [facility] PRN Reason: Protocol Last Admin: 05/24/17 09:31 Dose: 167 mls/hr Sodium Chloride (Sodium Chloride 0.9%) 1,000 mls @ 100 mls/hr IV .Q10H [facility] Last Admin: 05/23/17 23:35 Dose: 100 mls/hr Piperacillin Sod/Tazobactam Sod (Zosyn 3.375 In Ns 100ml) 100 mls @ 200 mls/hr IVPB Q6 [facility] PRN Reason: Protocol Stop: 05/24/17 18:29 Last Admin: 05/24/17 12:46 Dose: 200 mls/hr Insulin Detemir (Levemir) 14 unit SC Q12H [facility] Insulin Human Regular (Humulin R High) 0 units SC ACHS [facility] PRN Reason: Protocol Last Admin: 05/24/17 12:47 Dose: 15 units Insulin Lispro Protam/Lispro Human (Humalog Mix 75/25) 38 units SC ACBHS [facility] Last Admin: 05/24/17 10:50 Dose: 38 units Isosorbide Mononitrate (Imdur) 60 mg PO DAILY [facility] Last Admin: 05/24/17 09:28 Dose: 60 mg Levetiracetam (Keppra) 1,000 mg PO BID [facility] Last Admin: 05/24/17 09:28 Dose: 1,000 mg Lisinopril (Zestril) 10 mg PO DIN [facility] Metoprolol Tartrate (Lopressor) 50 mg PO BID [facility] Last Admin: 05/24/17 09:28 Dose: 50 mg Quetiapine Fumarate (Seroquel) 100 mg PO HS [facility] PRN Reason: Protocol Last Admin: 05/23/17 22:31 Dose: 100 mg Tamsulosin HCl (Flomax) 0.4 mg PO HS [facility] Last Admin: 05/23/17 22:10 Dose: 0.4 mg Ziprasidone (Geodon Cap) 60 mg PO BID [facility] PRN Reason: Protocol Last Admin: 05/24/17 09:28 Dose: 60 mg - Labs Labs: 05/24/17 07:30 05/24/17 07:30 PT 11.8 SECONDS (9.4-12.5) 05/23/17 16:40 INR 1.03 (0.93-1.08) 05/23/17 16:40 APTT 31.0 Seconds (25.1-36.5) 05/24/17 00:10
[2017-05-24] MEDS: Vancomycin 1gm in NS 250ml 1 GM/250 ML BAG IVPB SCH (21:27)
[2017-05-24] MEDS: Cefepime 1gm in NS 100ml 1 GM/100 ML BAG IVPB SCH (21:27)
[2017-05-24] MEDS: Insulin Detemir 100 units/ml Vial (Levemir) SC SCH (22:20)
[2017-05-25] MEDS: Sodium Chloride 0.9% 1,000 ML IV SCH (05:00)
[2017-05-25] MEDS: Cefepime 1gm in NS 100ml 1 GM/100 ML BAG IVPB SCH ×3 (05:01→21:56)
--- NOTE | 2017-05-25 05:05 | CON ---
DATE: 05/24/2017 CHIEF COMPLAINT: Abdominal wound infection times several days. HISTORY OF PRESENT ILLNESS: This is a 56-year-old male with past medical history significant for coronary artery disease, history of PCI, diabetes mellitus, peripheral neuropathy, morbid obesity with a BMI of 42, bipolar, history of normal pressure hydrocephalus, had a MACHINE RIVETER shunt, appendectomy, schizophrenia, admitted to the emergency room with a cellulitis and abscess of the abdominal wall. The patient was seen early this morning in room 366, bed 3. The patient was there in the emergency room and was seen by Ms. Corinne Gonzalez. The patient does have a history of congestive heart failure with ejection fraction of 34%. PAST MEDICAL HISTORY: Significant for morbid obesity with a BMI of 42, coronary artery disease, diabetes mellitus, bipolar, schizophrenia, congestive heart failure diastolic with ejection fraction of 34%. FAMILY HISTORY: Significant for MACHINE RIVETER shunt, appendectomy, the patient also has a normal pressure hydrocephalus. ALLERGIES: THE PATIENT IS ALLERGIC TO FISH. PHYSICAL EXAMINATION: GENERAL: He is in bed. No acute distress. Answering questions slowly. VITAL SIGNS: Temperature of 98, heart rate of 95, pulse oximetry 117, respiratory rate of 20 with a blood pressure of 140/80. HEENT: Unremarkable. NECK: Supple. LUNGS: Decreased breath sounds. HEART: Normal S1, S2. ABDOMINAL: Soft and nontender. There is a large area of induration and fluctuant, tender erythema approximately measuring 6 to 7 cm in diameter, tender to touch, central necrosis on the lateral aspect of the right abdominal wall. LABORATORY DATA: Reveals a white count of 14,000, hemoglobin of 16, platelets of 166, chemistry reveals a BUN of 19, creatinine of 0.8. Procalcitonin is noted. Urinalysis revealed too numerous to count wbc's, many bacteria. Blood cultures are negative. CAT scan of the abdomen and pelvis, abdominal wall cellulitis and phlegmon, and abscesses seen. ASSESSMENT AND PLAN: A 56-year-old male with coronary artery disease, morbid obesity, diabetes mellitus, peripheral neuropathy, congestive heart failure, normal pressure hydrocephalus, morbid obesity with body mass index of 42, bipolar schizophrenia with diastolic congestive heart failure with ejection fraction of 34% presenting with #1 is sepsis with cellulitis and abscess of the right abdominal wall. We will treat the patient with vancomycin and cefepime. It appears to be a methicillin-resistant Staphylococcus aureus appearance to it; however, in a diabetic, we are unable to completely rule out gram negative and we will use 1 gm intravenously q.8. We will also do a methicillin-resistant Staphylococcus aureus nares screening test. Vancomycin currently is written for 1 gm intravenously daily, we will change that to q.12. Unable to use p.o. Zyvox due to patient on Cymbalta. Avoid serotonin syndrome and review of the creatinine revealed that the patient has had relatively normal creatinine all the way back to 2010 and should have a surgical evaluation for incision and drainage, and the patient also had a HIV test in 2012 which was negative. We will follow closely with you. Delvin Hahn MD
[2017-05-25 07:23] LABS: BASO # 0.05 K/mm3 (0.0-2.0); BASO % 0.5 % (0.0-3.0); EOS # 0.2 (0.0-0.7); EOS % 1.5 % (1.5-5.0); GRAN # 7.39 (1.4-6.5); HEMOGLOBIN 14.6 g/dL (14.0-18.0); LYMPH # 2.4 (1.2-3.4); LYMPH % 21.8 % (22.0-35.0); MEAN CELL VOLUME 97.2 fl (80.0-105.0); MEAN CORPUSCULAR HEMOGLOBIN 31.7 pg (25.0-35.0); MEAN CORPUSCULAR HGB CONC 32.7 g/dl (31.0-37.0); MEAN PLATELET VOLUME 12.7 fl (7.0-11.0); MONO % 9.2 % (1.0-6.0); RBC 4.6 10^6/uL (3.5-6.1); RED CELL DISTRIBUTION WIDTH 13.1 % (11.5-14.5)
[2017-05-25 07:54] LABS: ALB/GLOB RATIO 1.1 (1.1-1.8); ALBUMIN 3.4 g/dL (3.0-4.8); ALT/SGPT 24 U/L (7-56); AST/SGOT 14 U/L (17-59); BLOOD UREA NITROGEN 25 mg/dL (7-21); CALCIUM 8.9 mg/dL (8.4-10.5); GFR AFRICAN-AMERICAN > 60; GFR NON-AFRICAN AMERICAN > 60
--- NOTE | 2017-05-25 08:17 | CP.PCM.PN ---
Subjective - Date & Time of Evaluation Date of Evaluation: 05/25/17 Time of Evaluation: 07:00 - Subjective Subjective: General Surgery- Dr. Vila Patient seen and examined at bedside this AM. No acute events overnight. Nursing notes reviewed. s/p bedside I&D of abdominal wall abscess. Dressing and packing changed at bedside. Denies F/C CP/SOB N/V/D Objective - Vital Signs/Intake and Output Vital Signs (last 24 hours): Temp Pulse Resp BP Pulse Ox 98.5 F 86 20 149/84 94 L 05/25/17 06:00 05/25/17 06:00 05/25/17 06:00 05/25/17 06:00 05/25/17 06:00 Intake and Output: 05/25/17 05/25/17 06:59 18:59 Intake Total 2340 Output Total 800 Balance 1540 - Medications Medications: Current Medications Aspirin (Ecotrin) 81 mg PO 0800 [facility] Last Admin: 05/24/17 09:28 Dose: 81 mg Atorvastatin Calcium (Lipitor) 20 mg PO DIN [facility] Last Admin: 05/24/17 17:32 Dose: 20 mg Clonazepam (Klonopin) 0.5 mg PO HS [facility] PRN Reason: Protocol Last Admin: 05/24/17 21:26 Dose: 0.5 mg Clopidogrel Bisulfate (Plavix) 75 mg PO DAILY [facility] Last Admin: 05/24/17 09:28 Dose: 75 mg Duloxetine HCl (Cymbalta) 60 mg PO DAILY [facility] Last Admin: 05/24/17 09:28 Dose: 60 mg Famotidine (Pepcid) 20 mg IVP DAILY [facility] Last Admin: 05/24/17 09:29 Dose: 20 mg Furosemide (Lasix) 40 mg PO DAILY [facility] Last Admin: 05/24/17 09:28 Dose: 40 mg Sodium Chloride (Sodium Chloride 0.9%) 1,000 mls @ 100 mls/hr IV .Q10H [facility] Last Admin: 05/25/17 05:00 Dose: 100 mls/hr Cefepime HCl (Maxipime 1gm) 1 gm in 100 mls @ 100 mls/hr IVPB Q8 [facility] PRN Reason: Protocol Stop: 06/02/17 22:01 Last Admin: 05/25/17 05:01 Dose: 100 mls/hr Vancomycin HCl (Vancomycin 1gm) 1 gm in 250 mls @ 167 mls/hr IVPB Q12H [facility] PRN Reason: Protocol Last Admin: 05/24/17 21:27 Dose: 167 mls/hr Insulin Detemir (Levemir) 14 unit SC Q12H [facility] Last Admin: 05/24/17 22:20 Dose: 14 unit Insulin Human Regular (Humulin R High) 0 units SC ACHS [facility] PRN Reason: Protocol Last Admin: 05/24/17 22:17 Dose: Not Given Insulin Lispro Protam/Lispro Human (Humalog Mix 75/25) 38 units SC ACBHS [facility] Last Admin: 05/24/17 22:20 Dose: Not Given Isosorbide Mononitrate (Imdur) 60 mg PO DAILY [facility] Last Admin: 05/24/17 09:28 Dose: 60 mg Levetiracetam (Keppra) 1,000 mg PO BID [facility] Last Admin: 05/24/17 17:32 Dose: 1,000 mg Lisinopril (Zestril) 10 mg PO DIN [facility] Last Admin: 05/24/17 17:32 Dose: 10 mg Metoprolol Tartrate (Lopressor) 50 mg PO BID [facility] Last Admin: 05/24/17 17:32 Dose: 50 mg Quetiapine Fumarate (Seroquel) 100 mg PO [facility] PRN Reason: Protocol Last Admin: 05/24/17 21:26 Dose: 100 mg Tamsulosin HCl (Flomax) 0.4 mg PO HS [facility] Last Admin: 05/24/17 21:26 Dose: 0.4 mg Ziprasidone (Geodon Cap) 60 mg PO BID [facility] PRN Reason: Protocol Last Admin: 05/24/17 17:32 Dose: 60 mg - Labs Labs: 05/25/17 07:00 05/25/17 07:00 PT 11.8 SECONDS (9.4-12.5) 05/23/17 16:40 INR 1.03 (0.93-1.08) 05/23/17 16:40 APTT 31.0 Seconds (25.1-36.5) 05/24/17 00:10 - Constitutional Appears: Non-toxic, No Acute Distress - Eye Exam Eye Exam: EOMI. absent: Scleral icterus - Respiratory Exam Respiratory Exam: NORMAL BREATHING PATTERN. absent: Accessory Muscle Use, Respiratory Distress - Cardiovascular Exam Cardiovascular Exam: +S1, +S2. absent: Bradycardia, Tachycardia - GI/Abdominal Exam GI & Abdominal Exam: Soft, Tenderness. absent: Distended, Firm, Guarding, Rigid Additional comments: abd abscess packing changed. slight induration around icnison site. - Extremities Exam Extremities Exam: Normal Inspection. absent: Calf Tenderness - Neurological Exam Neurological Exam: Alert, Awake, Oriented x3 - Psychiatric Exam Psychiatric exam: Flat Affect - Skin Skin Exam: Warm Assessment and Plan - Assessment and Plan (Free Text) Assessment: 56M s/p bedside I&D of abd wall abscess Plan: - f/u wound cx - adjust abx according to wound cx - daily packing changes - medical management per Primary team - d/w Dr. Vila surgical attending Altaf Evans PGY1
[2017-05-25] MEDS: Insulin Reg-HIGH-Coverage SC SCH ×4 (09:18→22:01)
[2017-05-25] MEDS: Insulin Lispro (humaLOG) MIX 75/25(10 ml) SC SCH ×2 (09:18→22:01)
[2017-05-25] MEDS: Vancomycin 1gm in NS 250ml 1 GM/250 ML BAG IVPB SCH ×2 (10:10→21:59)
[2017-05-25] MEDS: Insulin Detemir 100 units/ml Vial (Levemir) SC SCH ×2 (10:40→22:00)
--- NOTE | 2017-05-25 15:01 | CP.PCM.PN ---
<Jamaal Vila - Last Filed: 05/25/17 15:20> Subjective - Date & Time of Evaluation Date of Evaluation: 05/25/17 Time of Evaluation: 14:55 - Subjective Subjective: MEDICINE PROGRESS NOTE Patient seen and assessed at bedside. No acute events overnight noted by patient or nursing staff. Patient reports no complaints at this time and reports that he tolerated his bedside I&D well. He denies fever, chills, headache, changes in his vision, rhinorrhea, sore throat, chest pain, palpitations, syncope, dizziness, SOB, cough, wheezing, abdominal pain, N/V, diarrhea, constipation, burning/pain with urination or any numbness/tingling of any extremity. Objective - Vital Signs/Intake and Output Vital Signs (last 24 hours): Temp Pulse Resp BP Pulse Ox 98.5 F 86 20 149/84 94 L 05/25/17 06:00 05/25/17 06:00 05/25/17 06:00 05/25/17 10:09 05/25/17 06:00 Intake and Output: 05/25/17 05/25/17 06:59 18:59 Intake Total 2340 Output Total 800 Balance 1540 - Medications Medications: Current Medications Aspirin (Ecotrin) 81 mg PO 0800 [facility] Last Admin: 05/25/17 10:10 Dose: 81 mg Atorvastatin Calcium (Lipitor) 20 mg PO DIN [facility] Last Admin: 05/24/17 17:32 Dose: 20 mg Clonazepam (Klonopin) 0.5 mg PO HS [facility] PRN Reason: Protocol Last Admin: 05/24/17 21:26 Dose: 0.5 mg Clopidogrel Bisulfate (Plavix) 75 mg PO DAILY [facility] Last Admin: 05/25/17 10:10 Dose: 75 mg Duloxetine HCl (Cymbalta) 60 mg PO DAILY [facility] Last Admin: 05/25/17 10:09 Dose: 60 mg Famotidine (Pepcid) 20 mg IVP DAILY [facility] Last Admin: 05/25/17 10:10 Dose: 20 mg Furosemide (Lasix) 40 mg PO DAILY [facility] Last Admin: 05/25/17 10:09 Dose: 40 mg Sodium Chloride (Sodium Chloride 0.9%) 1,000 mls @ 100 mls/hr IV .Q10H [facility] Last Admin: 05/25/17 05:00 Dose: 100 mls/hr Cefepime HCl (Maxipime 1gm) 1 gm in 100 mls @ 100 mls/hr IVPB Q8 [facility] PRN Reason: Protocol Stop: 06/02/17 22:01 Last Admin: 05/25/17 13:09 Dose: 100 mls/hr Vancomycin HCl (Vancomycin 1gm) 1 gm in 250 mls @ 167 mls/hr IVPB Q12H [facility] PRN Reason: Protocol Last Admin: 05/25/17 10:10 Dose: 167 mls/hr Insulin Detemir (Levemir) 14 unit SC Q12H [facility] Last Admin: 05/25/17 10:40 Dose: Not Given Insulin Human Regular (Humulin R High) 0 units SC ACHS [facility] PRN Reason: Protocol Last Admin: 05/25/17 13:07 Dose: 4 units Insulin Lispro Protam/Lispro Human (Humalog Mix 75/25) 38 units SC ACBHS [facility] Last Admin: 05/25/17 09:18 Dose: 38 units Isosorbide Mononitrate (Imdur) 60 mg PO DAILY [facility] Last Admin: 05/25/17 10:10 Dose: 60 mg Levetiracetam (Keppra) 1,000 mg PO BID [facility] Last Admin: 05/25/17 10:09 Dose: 1,000 mg Lisinopril (Zestril) 10 mg PO DIN [facility] Last Admin: 05/24/17 17:32 Dose: 10 mg Metoprolol Tartrate (Lopressor) 50 mg PO BID [facility] Last Admin: 05/25/17 10:09 Dose: 50 mg Quetiapine Fumarate (Seroquel) 100 mg PO HS [facility] PRN Reason: Protocol Last Admin: 05/24/17 21:26 Dose: 100 mg Tamsulosin HCl (Flomax) 0.4 mg PO HS [facility] Last Admin: 05/24/17 21:26 Dose: 0.4 mg Tramadol HCl (Ultram) 50 mg PO TID PRN PRN Reason: Pain, moderate (4-7) Ziprasidone (Geodon Cap) 60 mg PO BID [facility] PRN Reason: Protocol Last Admin: 05/25/17 10:09 Dose: 60 mg - Labs Labs: 05/25/17 07:00 05/25/17 07:00 PT 11.8 SECONDS (9.4-12.5) 05/23/17 16:40 INR 1.03 (0.93-1.08) 05/23/17 16:40 APTT 31.0 Seconds (25.1-36.5) 05/24/17 00:10 - Constitutional Appears: Non-toxic, No Acute Distress - Head Exam Head Exam: ATRAUMATIC, NORMAL INSPECTION, NORMOCEPHALIC - Eye Exam Eye Exam: EOMI, Normal appearance, PERRL. absent: Conjunctival injection, Nystagmus, Periorbital swelling, Periorbital tenderness, Scleral icterus Pupil Exam: NORMAL ACCOMODATION, PERRL - ENT Exam ENT Exam: Mucous Membranes Moist, Normal Exam. absent: Mucous Membranes Dry - Neck Exam Neck Exam: Full ROM, Normal Inspection. absent: Lymphadenopathy, Meningismus - Respiratory Exam Respiratory Exam: Clear to Ausculation Bilateral, NORMAL BREATHING PATTERN. absent: Accessory Muscle Use, Chest Wall Tenderness, Decreased Breath Sounds, Prolonged Expiratory Phase, Rales, Rhonchi, Wheezes, Respiratory Distress, Stridor - Cardiovascular Exam Cardiovascular Exam: REGULAR RHYTHM, RRR, +S1, +S2. absent: Bradycardia, Tachycardia, Clicks, Diastolic murmur, Gallop, Irregular Rhythm, JVD, Rubs, +S4 , Murmur - GI/Abdominal Exam GI & Abdominal Exam: Soft, Tenderness (TTP to RLQ I&D site with minimal surrounding erythema and induration; Wound dressing clean, dry and intact), Normal Bowel Sounds. absent: Bruit, Distended, Firm, Guarding, Rigid, Diminished Bowel Sounds, Hernia, Hyperactive Bowel Sounds, Hypoactive Bowel Sounds, Organomegaly, Pulsatile Mass, Rebound, Mass - Extremities Exam Extremities Exam: Full ROM, Normal Capillary Refill, Normal Inspection. absent : Calf Tenderness, Joint Swelling, Pedal Edema, Tenderness - Back Exam Back Exam: Full ROM, NORMAL INSPECTION. absent: CVA tenderness (L), CVA tenderness (R), muscle spasm, paraspinal tenderness, rash noted, tenderness, vertebral tenderness - Neurological Exam Neurological Exam: Alert, Awake, CN II-XII Intact, Oriented x3 - Psychiatric Exam Psychiatric exam: Normal Affect, Normal Mood - Skin Skin Exam: Dry, Intact, Normal Color, Warm Assessment and Plan - Assessment and Plan (Free Text) Assessment: 56 year old male with a past medical history significant for DM2, HTN, CAD s/p 8 NATE, HLD, CHF (EF of 34%), and CVA presents with complaints of RLQ cellulitis at his insulin injection site. Patient underwent bedside I&D yesterday and tolerated procedure well, with no reported complications per surgery team. Infectious Disease was consulted and recommended that patient should receive Vancomycin and Cefepime for empiric coverage for his abdominal cellulitis. Plan: 1. Cellulitis of RLQ Abdominal Wall -CT Abdomen/Pelvis showing abdominal wall cellulitis with subjacent inflammation and noted phlegmon/early abscess difficult to exclude -Patient noted to be afebrile, non-tachypneic, with no tachycardia and without leukocytosis -Blood and wound cultures negative for 24 hours -Procalcitonin <0.05 -IV Vancomycin and Cefepime for empiric coverage -Tramadol 50mg PO TID PRN for pain control -Continue wound care -Surgery and ID consulted, all recommendations appreciated 2. LLL Pneumonia/Atelectasis -CT Abdomen/Pelvis showing LLL pneumonia/atelectasis -HCAP risk factors: Recent hospitalization within 90 days -Patient noted to be afebrile, non-tachypneic, with no tachycardia and without leukocytosis -Blood and wound cultures negative for 24 hours -Procalcitonin <0.05 -IV Vancomycin and Cefepime for empiric coverage -ID Consulted, all recommendations appreciated 3. Urinary Tract Infection -UA showing no nitrates, moderate LE, too numerous to count WBC's and many bacteria -Patient noted to be afebrile, non-tachypneic, with no tachycardia and without leukocytosis -Urine cultures showing probable contamination -Blood cultures negative for 24 hours -Procalcitonin <0.05 -IV Vancomycin and Cefepime for empiric coverage -Normal Saline at 100mls/hr -ID consulted, all recommendations appreciated 4. History of DM2 -SSI-high and Accuchecks Q6ACHS -Humalog Mix 75/25 38u SC ACBHS and Levemir 14u SC Q12H -A1C pending -Carbohydrate Consistent Diet -Bridge Crane Operator consulted, all recommendations appreciated 5. History of CAD s/p 8 NATE -Continue ASA and Plavix 6. History of CHF -Continue Lasix and Imdur 7. History of HTN -Continue Metoprolol and Lisinopril 8. History of HLD -Lipid panel showing elevated TG of 178 and normal levels of total cholesterol, HDL and LDL -Continue Lipitor 9. History of CVA -Continue Keppra 10. History of MDD -Continue Cymbalta 11. History of Anxiety -Continue Klonopin 12. History of Schizophrenia -Continue Geodon and Seroquel GI Prophylaxis: Pepcid DVT Prophylaxis: SCD's Patient seen and case discussed with attending, Dr. Savage. <Altagracia Savage - Last Filed: 05/25/17 15:52> Objective - Vital Signs/Intake and Output Vital Signs (last 24 hours): Temp Pulse Resp BP Pulse Ox 98.5 F 86 20 149/84 94 L 05/25/17 06:00 05/25/17 06:00 05/25/17 06:00 05/25/17 10:09 05/25/17 06:00 Intake and Output: 05/25/17 05/25/17 06:59 18:59 Intake Total 2340 Output Total 800 Balance 1540 - Medications Medications: Current Medications Aspirin (Ecotrin) 81 mg PO 0800 [facility] Last Admin: 05/25/17 10:10 Dose: 81 mg Atorvastatin Calcium (Lipitor) 20 mg PO DIN [facility] Last Admin: 05/24/17 17:32 Dose: 20 mg Clonazepam (Klonopin) 0.5 mg PO HS [facility] PRN Reason: Protocol Last Admin: 05/24/17 21:26 Dose: 0.5 mg Clopidogrel Bisulfate (Plavix) 75 mg PO DAILY [facility] Last Admin: 05/25/17 10:10 Dose: 75 mg Duloxetine HCl (Cymbalta) 60 mg PO DAILY [facility] Last Admin: 05/25/17 10:09 Dose: 60 mg Famotidine (Pepcid) 20 mg IVP DAILY [facility] Last Admin: 05/25/17 10:10 Dose: 20 mg Furosemide (Lasix) 40 mg PO DAILY [facility] Last Admin: 05/25/17 10:09 Dose: 40 mg Sodium Chloride (Sodium Chloride 0.9%) 1,000 mls @ 100 mls/hr IV .Q10H [facility] Last Admin: 05/25/17 05:00 Dose: 100 mls/hr Cefepime HCl (Maxipime 1gm) 1 gm in 100 mls @ 100 mls/hr IVPB Q8 [facility] PRN Reason: Protocol Stop: 06/02/17 22:01 Last Admin: 05/25/17 13:09 Dose: 100 mls/hr Vancomycin HCl (Vancomycin 1gm) 1 gm in 250 mls @ 167 mls/hr IVPB Q12H [facility] PRN Reason: Protocol Last Admin: 05/25/17 10:10 Dose: 167 mls/hr Insulin Detemir (Levemir) 14 unit SC Q12H [facility] Last Admin: 05/25/17 10:40 Dose: Not Given Insulin Human Regular (Humulin R High) 0 units SC [facility] PRN Reason: Protocol Last Admin: 05/25/17 13:07 Dose: 4 units Insulin Lispro Protam/Lispro Human (Humalog Mix 75/25) 38 units SC [facility] Last Admin: 05/25/17 09:18 Dose: 38 units Isosorbide Mononitrate (Imdur) 60 mg PO DAILY [facility] Last Admin: 05/25/17 10:10 Dose: 60 mg Levetiracetam (Keppra) 1,000 mg PO BID [facility] Last Admin: 05/25/17 10:09 Dose: 1,000 mg Lisinopril (Zestril) 10 mg PO DIN [facility] Last Admin: 05/24/17 17:32 Dose: 10 mg Metoprolol Tartrate (Lopressor) 50 mg PO BID [facility] Last Admin: 05/25/17 10:09 Dose: 50 mg Quetiapine Fumarate (Seroquel) 100 mg PO [facility] PRN Reason: Protocol Last Admin: 05/24/17 21:26 Dose: 100 mg Tamsulosin HCl (Flomax) 0.4 mg PO HS [facility] Last Admin: 05/24/17 21:26 Dose: 0.4 mg Tramadol HCl (Ultram) 50 mg PO TID PRN PRN Reason: Pain, moderate (4-7) Ziprasidone (Geodon Cap) 60 mg PO BID [facility] PRN Reason: Protocol Last Admin: 05/25/17 10:09 Dose: 60 mg - Labs Labs: 05/25/17 07:00 05/25/17 07:00 PT 11.8 SECONDS (9.4-12.5) 05/23/17 16:40 INR 1.03 (0.93-1.08) 05/23/17 16:40 APTT 31.0 Seconds (25.1-36.5) 05/24/17 00:10 Attending/Attestation - Attestation I have personally seen and examined this patient.: Yes I have fully participated in the care of the patient.: Yes I have reviewed all pertinent clinical information, including history, physical exam and plan: Yes Notes (Text): 05/25/17 15:51 56 year old male with past medical history of diabetes, hypertension, CAD s/p stents, CHF, and CVA who presented with RLQ pain and erythema. CT abd/pelvis showed abdominal wall cellulitis with possible early abscess / phlegmon and LLL pneumonia / atelectasis. Patient is s/p I&D POD #1. Continue with wound care as per surgery and antibiotics as per ID for cellulitis/UTI/pneumonia. Continue with humalog and levemir for diabetes. Continue with home medications for CAD/CHF. Altagracia Savage MD Hospitalist.
[2017-05-26] MEDS: Sodium Chloride 0.9% 1,000 ML IV SCH ×2 (02:00→11:55)
--- NOTE | 2017-05-26 04:38 | PN ---
DATE: 05/25/2017 SUBJECTIVE: The patient was seen earlier today in 366, bed 3. No fevers and no chills. He is feeling better . PHYSICAL EXAMINATION: VITAL SIGNS: On exam, temperature is 98, blood pressure is 129/80, respiratory rate of 20, heart rate of 88 with 94% saturation. HEENT: Examination of HEENT is unremarkable. NECK: Supple. LUNGS: Have decreased breath sounds. HEART: Normal S1 and S2. ABDOMEN: Soft and nontender. LABORATORY EXAMINATION: Reveals a white count of 11,000, hemoglobin of 14, platelets of 124 and 67% granulocytosis. BUN of 25, creatinine of 0.8. Procalcitonin is less than 0.8. Urinalysis is noted. Blood cultures have no growth and abdominal wound cultures have no growth thus far. ASSESSMENT AND PLAN: This is a 56-year-old male who is seen earlier this morning in 366, bed 3, with coronary artery disease, morbid obesity, diabetes mellitus, peripheral neuropathy, congestive heart failure, normal pressure hydrocephalus. The patient has morbid obesity with a body mass index of 42, has bipolar, schizophrenic, and diastolic congestive heart failure with an ejection fraction of 34%, presenting at this admission, 1. Sepsis with cellulitis and abscess of the right abdominal wall, and it appears as MRSA. The patient had incision and drainage of the abscess, currently on vancomycin and cefepime, waiting for culture results. Thus far, cultures are negative at 24 hours. We will follow with you. Delvin Hahn MD
[2017-05-26] MEDS: Cefepime 1gm in NS 100ml 1 GM/100 ML BAG IVPB SCH ×3 (05:04→22:03)
[2017-05-26 07:13] LABS: ALT/SGPT 24 U/L (7-56); AST/SGOT 15 U/L (17-59); BLOOD UREA NITROGEN 20 mg/dL (7-21); CALCIUM 8.7 mg/dL (8.4-10.5); GFR AFRICAN-AMERICAN > 60; GFR NON-AFRICAN AMERICAN > 60
[2017-05-26 07:29] LABS: BASO # 0.03 K/mm3 (0.0-2.0); BASO % 0.3 % (0.0-3.0); EOS # 0.2 (0.0-0.7); EOS % 1.7 % (1.5-5.0); GRAN # 6.16 (1.4-6.5); GRAN % 65.1 % (50.0-68.0); HEMOGLOBIN 13.4 g/dL (14.0-18.0); LYMPH # 2.2 (1.2-3.4); LYMPH % 23.3 % (22.0-35.0); MEAN CELL VOLUME 97.7 fl (80.0-105.0); MEAN CORPUSCULAR HEMOGLOBIN 31.4 pg (25.0-35.0); MEAN CORPUSCULAR HGB CONC 32.1 g/dl (31.0-37.0); MEAN PLATELET VOLUME 13.1 fl (7.0-11.0); MONO # 0.9 (0.1-0.6); MONO % 9.6 % (1.0-6.0); RBC 4.27 10^6/uL (3.5-6.1); WHITE BLOOD COUNT 9.5 10^3/ul (4.5-11.0)
[2017-05-26] MEDS: Insulin Reg-HIGH-Coverage SC SCH ×4 (08:24→22:05)
[2017-05-26] MEDS: Insulin Lispro (humaLOG) MIX 75/25(10 ml) SC SCH ×2 (08:41→22:04)
--- NOTE | 2017-05-26 09:29 | CP.PCM.PN ---
Subjective - Date & Time of Evaluation Date of Evaluation: 05/26/17 Time of Evaluation: 09:26 - Subjective Subjective: General Surgery Progress Note for Dr. Vila. Patient has been seen and examined at bedside. No overnight events reported. Denies any fevers. Complains of mild abdominal tenderness at abscess site. Objective - Vital Signs/Intake and Output Vital Signs (last 24 hours): Temp Pulse Resp BP Pulse Ox 98.4 F 89 18 139/87 94 L 05/26/17 08:31 05/26/17 08:31 05/26/17 08:31 05/26/17 08:31 05/26/17 08:31 Intake and Output: 05/26/17 05/26/17 06:59 18:59 Intake Total 540 Output Total 1600 Balance -1060 - Medications Medications: Current Medications Aspirin (Ecotrin) 81 mg PO 0800 [facility] Last Admin: 05/26/17 08:42 Dose: 81 mg Atorvastatin Calcium (Lipitor) 20 mg PO DIN [facility] Last Admin: 05/25/17 17:28 Dose: 20 mg Clonazepam (Klonopin) 0.5 mg PO HS [facility] PRN Reason: Protocol Last Admin: 05/25/17 21:46 Dose: 0.5 mg Clopidogrel Bisulfate (Plavix) 75 mg PO DAILY [facility] Last Admin: 05/25/17 10:10 Dose: 75 mg Duloxetine HCl (Cymbalta) 60 mg PO DAILY [facility] Last Admin: 05/25/17 10:09 Dose: 60 mg Famotidine (Pepcid) 20 mg IVP DAILY [facility] Last Admin: 05/25/17 10:10 Dose: 20 mg Furosemide (Lasix) 40 mg PO DAILY [facility] Last Admin: 05/25/17 10:09 Dose: 40 mg Sodium Chloride (Sodium Chloride 0.9%) 1,000 mls @ 100 mls/hr IV .Q10H [facility] Last Admin: 05/26/17 02:00 Dose: 100 mls/hr Cefepime HCl (Maxipime 1gm) 1 gm in 100 mls @ 100 mls/hr IVPB Q8 [facility] PRN Reason: Protocol Stop: 06/02/17 22:01 Last Admin: 05/26/17 05:04 Dose: 100 mls/hr Vancomycin HCl (Vancomycin 1gm) 1 gm in 250 mls @ 167 mls/hr IVPB Q12H [facility] PRN Reason: Protocol Last Admin: 05/25/17 21:59 Dose: 167 mls/hr Insulin Detemir (Levemir) 14 unit SC Q12H [facility] Last Admin: 05/25/17 22:00 Dose: 14 unit Insulin Human Regular (Humulin R High) 0 units SC ACHS [facility] PRN Reason: Protocol Last Admin: 05/26/17 08:24 Dose: Not Given Insulin Lispro Protam/Lispro Human (Humalog Mix 75/25) 38 units SC ACBHS [facility] Last Admin: 05/26/17 08:41 Dose: 38 units Isosorbide Mononitrate (Imdur) 60 mg PO DAILY [facility] Last Admin: 05/25/17 10:10 Dose: 60 mg Levetiracetam (Keppra) 1,000 mg PO BID [facility] Last Admin: 05/25/17 17:28 Dose: 1,000 mg Lisinopril (Zestril) 10 mg PO DIN [facility] Last Admin: 05/25/17 17:28 Dose: 10 mg Metoprolol Tartrate (Lopressor) 50 mg PO BID [facility] Last Admin: 05/25/17 17:28 Dose: 50 mg Quetiapine Fumarate (Seroquel) 100 mg PO [facility] PRN Reason: Protocol Last Admin: 05/25/17 21:58 Dose: 100 mg Tamsulosin HCl (Flomax) 0.4 mg PO HS [facility] Last Admin: 05/25/17 21:45 Dose: 0.4 mg Tramadol HCl (Ultram) 50 mg PO TID PRN PRN Reason: Pain, moderate (4-7) Last Admin: 05/25/17 23:28 Dose: 50 mg Ziprasidone (Geodon Cap) 60 mg PO BID [facility] PRN Reason: Protocol Last Admin: 05/25/17 17:28 Dose: 60 mg - Labs Labs: 05/26/17 05:45 05/26/17 05:45 PT 11.8 SECONDS (9.4-12.5) 05/23/17 16:40 INR 1.03 (0.93-1.08) 05/23/17 16:40 APTT 31.0 Seconds (25.1-36.5) 05/24/17 00:10 - Additional Findings Additional findings: - Constitutional Appears: Non-toxic, No Acute Distress - Eye Exam Eye Exam: EOMI. absent: Scleral icterus - Respiratory Exam Respiratory Exam: NORMAL BREATHING PATTERN. absent: Accessory Muscle Use, Respiratory Distress - Cardiovascular Exam Cardiovascular Exam: +S1, +S2. absent: Bradycardia, Tachycardia - GI/Abdominal Exam GI & Abdominal Exam: Soft, Tenderness. absent: Distended, Firm, Guarding, Rigid Additional comments: abd abscess packing changed. slight induration around icnison site. - Extremities Exam Extremities Exam: Normal Inspection. absent: Calf Tenderness - Neurological Exam Neurological Exam: Alert, Awake, Oriented x3 - Psychiatric Exam Psychiatric exam: Flat Affect - Skin Skin Exam: Warm Assessment and Plan - Assessment and Plan (Free Text) Assessment: 56M s/p (day 2) of bedside I&D of abd wall abscess Plan: - Wound Culture - Prelim results reads Coagulase negative staph/Corynabacterium species - Patient is stable for DC on a surgery standpoint. - Patient may go home on PO antibiotics. - Patient will need daily packing changes at home - Patient should follow up with Dr. Vila 1 week after discharge. - daily packing changes - medical management per Primary team - Will discuss with Dr. Vila, surgical attending Princess Maza - PGY1
[2017-05-26] MEDS: Insulin Detemir 100 units/ml Vial (Levemir) SC SCH ×2 (11:54→22:05)
[2017-05-26] MEDS: Vancomycin 1gm in NS 250ml 1 GM/250 ML BAG IVPB SCH ×2 (11:55→23:52)
--- NOTE | 2017-05-26 17:10 | CP.PCM.PN ---
Subjective - Date & Time of Evaluation Date of Evaluation: 05/26/17 Time of Evaluation: 11:00 - Subjective Subjective: Comfortable, no fevers, not in distress. Abdominal pain is improving. Objective - Vital Signs/Intake and Output Vital Signs (last 24 hours): Temp Pulse Resp BP Pulse Ox 98.4 F 89 18 139/87 94 L 05/26/17 08:31 05/26/17 08:31 05/26/17 08:31 05/26/17 08:31 05/26/17 08:31 Intake and Output: 05/26/17 05/26/17 06:59 18:59 Intake Total 540 Output Total 1600 Balance -1060 - Medications Medications: Current Medications Aspirin (Ecotrin) 81 mg PO 0800 [facility] Last Admin: 05/26/17 08:42 Dose: 81 mg Atorvastatin Calcium (Lipitor) 20 mg PO DIN [facility] Last Admin: 05/25/17 17:28 Dose: 20 mg Clonazepam (Klonopin) 0.5 mg PO HS [facility] PRN Reason: Protocol Last Admin: 05/25/17 21:46 Dose: 0.5 mg Clopidogrel Bisulfate (Plavix) 75 mg PO DAILY [facility] Last Admin: 05/25/17 10:10 Dose: 75 mg Duloxetine HCl (Cymbalta) 60 mg PO DAILY [facility] Last Admin: 05/25/17 10:09 Dose: 60 mg Famotidine (Pepcid) 20 mg IVP DAILY [facility] Last Admin: 05/25/17 10:10 Dose: 20 mg Furosemide (Lasix) 40 mg PO DAILY [facility] Last Admin: 05/25/17 10:09 Dose: 40 mg Sodium Chloride (Sodium Chloride 0.9%) 1,000 mls @ 100 mls/hr IV .Q10H [facility] Last Admin: 05/26/17 02:00 Dose: 100 mls/hr Cefepime HCl (Maxipime 1gm) 1 gm in 100 mls @ 100 mls/hr IVPB Q8 [facility] PRN Reason: Protocol Stop: 06/02/17 22:01 Last Admin: 05/26/17 05:04 Dose: 100 mls/hr Vancomycin HCl (Vancomycin 1gm) 1 gm in 250 mls @ 167 mls/hr IVPB Q12H [facility] PRN Reason: Protocol Last Admin: 05/25/17 21:59 Dose: 167 mls/hr Insulin Detemir (Levemir) 14 unit SC Q12H [facility] Last Admin: 05/25/17 22:00 Dose: 14 unit Insulin Human Regular (Humulin R High) [address] [facility] PRN Reason: Protocol Last Admin: 05/26/17 08:24 Dose: Not Given Insulin Lispro Protam/Lispro Human (Humalog Mix 75/25) 38 units SC ACBHS [facility] Last Admin: 05/26/17 08:41 Dose: 38 units Isosorbide Mononitrate (Imdur) 60 mg PO DAILY [facility] Last Admin: 05/25/17 10:10 Dose: 60 mg Levetiracetam (Keppra) 1,000 mg PO BID [facility] Last Admin: 05/25/17 17:28 Dose: 1,000 mg Lisinopril (Zestril) 10 mg PO DIN [facility] Last Admin: 05/25/17 17:28 Dose: 10 mg Metoprolol Tartrate (Lopressor) 50 mg PO BID [facility] Last Admin: 05/25/17 17:28 Dose: 50 mg Quetiapine Fumarate (Seroquel) 100 mg PO [facility] PRN Reason: Protocol Last Admin: 05/25/17 21:58 Dose: 100 mg Tamsulosin HCl (Flomax) 0.4 mg PO [facility] Last Admin: 05/25/17 21:45 Dose: 0.4 mg Tramadol HCl (Ultram) 50 mg PO TID PRN PRN Reason: Pain, moderate (4-7) Last Admin: 05/25/17 23:28 Dose: 50 mg Ziprasidone (Geodon Cap) 60 mg PO BID [facility] PRN Reason: Protocol Last Admin: 05/25/17 17:28 Dose: 60 mg - Labs Labs: 05/26/17 05:45 05/26/17 05:45 PT 11.8 SECONDS (9.4-12.5) 05/23/17 16:40 INR 1.03 (0.93-1.08) 05/23/17 16:40 APTT 31.0 Seconds (25.1-36.5) 05/24/17 00:10 - Constitutional Appears: Non-toxic - Head Exam Head Exam: NORMAL INSPECTION - Respiratory Exam Respiratory Exam: Decreased Breath Sounds - Cardiovascular Exam Cardiovascular Exam: +S1, +S2 - GI/Abdominal Exam GI & Abdominal Exam: Soft. absent: Tenderness Assessment and Plan - Assessment and Plan (Free Text) Plan: Assessment abdominal wall cellulitis S/P I and D urinary tract infection with E. coli and E. faecalis, clinically improving CAD S/P PCI DM peripheral neuropathy morbid obesity with BMI 40 bipolar disorder normal pressure hydrocephalus S/P APPLIANCE SERVICE REPRESENTATIVE shunt placement S/P appendectomy Plan continue Vancomycin and Cefepime day 3 pending final wound cx results will monitor clinically
--- NOTE | 2017-05-26 18:40 | CP.PCM.PN ---
<Kaylie Aoms - Last Filed: 05/26/17 18:36> Subjective - Date & Time of Evaluation Date of Evaluation: 05/26/17 Time of Evaluation: 10:00 - Subjective Subjective: Kaylie Amos, PGY1, Medicine Progress Note for Dr Berger: Patient seen and assessed at bedside. No acute events overnight noted by patient or nursing staff. Pt denies fever, chills, excessive pain at the site of the wound, urinary symptoms, cough, sob, chest congestion. Objective - Vital Signs/Intake and Output Vital Signs (last 24 hours): Temp Pulse Resp BP Pulse Ox 98.4 F 89 18 139/87 94 L 05/26/17 08:31 05/26/17 08:31 05/26/17 08:31 05/26/17 10:54 05/26/17 08:31 Intake and Output: 05/26/17 05/26/17 06:59 18:59 Intake Total 540 Output Total 1600 Balance -1060 - Medications Medications: Current Medications Aspirin (Ecotrin) 81 mg PO 0800 [facility] Last Admin: 05/26/17 08:42 Dose: 81 mg Atorvastatin Calcium (Lipitor) 20 mg PO DIN [facility] Last Admin: 05/26/17 16:18 Dose: 20 mg Clonazepam (Klonopin) 0.5 mg PO HS [facility] PRN Reason: Protocol Last Admin: 05/25/17 21:46 Dose: 0.5 mg Clopidogrel Bisulfate (Plavix) 75 mg PO DAILY [facility] Last Admin: 05/26/17 10:54 Dose: 75 mg Duloxetine HCl (Cymbalta) 60 mg PO DAILY [facility] Last Admin: 05/26/17 10:52 Dose: 60 mg Famotidine (Pepcid) 20 mg PO DAILY [facility] Furosemide (Lasix) 40 mg PO DAILY [facility] Last Admin: 05/26/17 10:54 Dose: 40 mg Sodium Chloride (Sodium Chloride 0.9%) 1,000 mls @ 100 mls/hr IV .Q10H [facility] Last Admin: 05/26/17 11:55 Dose: 100 mls/hr Cefepime HCl (Maxipime 1gm) 1 gm in 100 mls @ 100 mls/hr IVPB Q8 [facility] PRN Reason: Protocol Stop: 06/02/17 22:01 Last Admin: 05/26/17 14:07 Dose: 100 mls/hr Vancomycin HCl (Vancomycin 1gm) 1 gm in 250 mls @ 167 mls/hr IVPB Q12H [facility] PRN Reason: Protocol Last Admin: 05/26/17 11:55 Dose: 167 mls/hr Insulin Detemir (Levemir) 14 unit SC Q12H [facility] Last Admin: 05/26/17 11:54 Dose: 14 unit Insulin Human Regular (Humulin R High) 0 units SC ACHS [facility] PRN Reason: Protocol Last Admin: 05/26/17 16:18 Dose: 4 units Insulin Lispro Protam/Lispro Human (Humalog Mix 75/25) 38 units SC ACBHS [facility] Last Admin: 05/26/17 08:41 Dose: 38 units Isosorbide Mononitrate (Imdur) 60 mg PO DAILY [facility] Last Admin: 05/26/17 10:53 Dose: 60 mg Levetiracetam (Keppra) 1,000 mg PO BID [facility] Last Admin: 05/26/17 17:38 Dose: 1,000 mg Lisinopril (Zestril) 10 mg PO DIN [facility] Last Admin: 05/26/17 16:18 Dose: 10 mg Metoprolol Tartrate (Lopressor) 50 mg PO BID [facility] Last Admin: 05/26/17 17:38 Dose: 50 mg Quetiapine Fumarate (Seroquel) 100 mg PO [facility] PRN Reason: Protocol Last Admin: 05/25/17 21:58 Dose: 100 mg Tamsulosin HCl (Flomax) 0.4 mg PO HS [facility] Last Admin: 05/25/17 21:45 Dose: 0.4 mg Tramadol HCl (Ultram) 50 mg PO TID PRN PRN Reason: Pain, moderate (4-7) Last Admin: 05/25/17 23:28 Dose: 50 mg Ziprasidone (Geodon Cap) 60 mg PO BID [facility] PRN Reason: Protocol Last Admin: 05/26/17 17:38 Dose: 60 mg - Labs Labs: 05/26/17 05:45 05/26/17 05:45 PT 11.8 SECONDS (9.4-12.5) 05/23/17 16:40 INR 1.03 (0.93-1.08) 05/23/17 16:40 APTT 31.0 Seconds (25.1-36.5) 05/24/17 00:10 - Additional Findings Additional findings: - Constitutional Appears: Non-toxic, No Acute Distress - Head Exam Head Exam: ATRAUMATIC, NORMAL INSPECTION, NORMOCEPHALIC - Eye Exam Eye Exam: EOMI, Normal appearance, PERRL. absent: Conjunctival injection, Nystagmus, Periorbital swelling, Periorbital tenderness, Scleral icterus Pupil Exam: NORMAL ACCOMODATION, PERRL - ENT Exam ENT Exam: Mucous Membranes Moist, Normal Exam. absent: Mucous Membranes Dry - Neck Exam Neck Exam: Full ROM, Normal Inspection. absent: Lymphadenopathy, Meningismus - Respiratory Exam Respiratory Exam: Clear to Ausculation Bilateral, NORMAL BREATHING PATTERN. absent: Accessory Muscle Use, Chest Wall Tenderness, Decreased Breath Sounds, Prolonged Expiratory Phase, Rales, Rhonchi, Wheezes, Respiratory Distress, Stridor - Cardiovascular Exam Cardiovascular Exam: REGULAR RHYTHM, RRR, +S1, +S2. absent: Bradycardia, Tachycardia, Clicks, Diastolic murmur, Gallop, Irregular Rhythm, JVD, Rubs, +S4 , Murmur - GI/Abdominal Exam GI & Abdominal Exam: Soft, nontender (dressing c/d/i at RLQ) - no surround erythema/induration noted, Normal Bowel Sounds. absent: Bruit, Distended, Firm , Guarding, Rigid, Diminished Bowel Sounds, Hernia, Hyperactive Bowel Sounds, Hypoactive Bowel Sounds, Organomegaly, Pulsatile Mass, Rebound, Mass - Extremities Exam Extremities Exam: Full ROM, Normal Capillary Refill, Normal Inspection. absent : Calf Tenderness, Joint Swelling, Pedal Edema, Tenderness - Back Exam Back Exam: Full ROM, NORMAL INSPECTION. absent: CVA tenderness (L), CVA tenderness (R), muscle spasm, paraspinal tenderness, rash noted, tenderness, vertebral tenderness - Neurological Exam Neurological Exam: Alert, Awake, CN II-XII Intact, Oriented x3 - Psychiatric Exam Psychiatric exam: Normal Affect, Normal Mood - Skin Skin Exam: Dry, Intact, Normal Color, Warm Assessment and Plan - Assessment and Plan (Free Text) Assessment: 56 year old male with a past medical history significant for DM2, HTN, CAD s/p 8 NATE, HLD, CHF (EF of 34%), and CVA presents with complaints of RLQ cellulitis at his insulin injection site. Patient underwent bedside I&D on 05/24 and tolerated procedure well, with no reported complications per surgery team. Infectious Disease was consulted and recommended that patient should receive Vancomycin and Cefepime for empiric coverage for his abdominal cellulitis. Wound culture grew Coag neg Staph and cornybacterium (likely contaminants). Cleared from surgery standpoint, will discharge on PO Doxycycline or Keflex ( await ID recs), follow up with surgery in 1 week outpatient, home visiting nurses arranged to change dressin. Cellulitis of RLQ Abdominal Wall -CT Abdomen/Pelvis showing abdominal wall cellulitis with subjacent inflammation and noted phlegmon/early abscess difficult to exclude -Patient noted to be afebrile, non-tachypneic, with no tachycardia and without leukocytosis -Blood cultures negative -Wound cultures grew Corynebacterium and coag neg staph. -Procalcitonin <0.05 -IV Vancomycin and Cefepime for empiric coverage -Tramadol 50mg PO TID PRN for pain control -Continue wound care -Surgery and ID consulted, all recommendations appreciated 2. LLL Pneumonia/Atelectasis -CT Abdomen/Pelvis showing LLL pneumonia/atelectasis -HCAP risk factors: Recent hospitalization within 90 days -Patient noted to be afebrile, non-tachypneic, with no tachycardia and without leukocytosis -Blood cultures negative for 24 hours -Procalcitonin <0.05 -IV Vancomycin and Cefepime for empiric coverage -ID Consulted, all recommendations appreciated 3. History of DM2 -SSI-high and Accuchecks Q6ACHS -Humalog Mix 75/25 38u SC ACBHS and Levemir 14u SC Q12H -A1C pending -Carbohydrate Consistent Diet -Rotogravure Press Operator consulted, all recommendations appreciated 4. History of CAD s/p 8 NATE -Continue ASA and Plavix 5. History of CHF -Continue Lasix and Imdur 6. History of HTN -Continue Metoprolol and Lisinopril 7. History of HLD -Lipid panel showing elevated TG of 178 and normal levels of total cholesterol, HDL and LDL -Continue Lipitor 8. History of CVA -Continue Keppra 9. History of MDD -Continue Cymbalta 10. History of Anxiety -Continue Klonopin 11. History of Schizophrenia -Continue Geodon and Seroquel GI Prophylaxis: Pepcid DVT Prophylaxis: SCD's Patient seen and case discussed with attending, Dr. Berger. Kaylie Amos, PGY1 <Teresa Berger - Last Filed: 05/28/17 16:29> Objective - Vital Signs/Intake and Output Vital Signs (last 24 hours): Temp Pulse Resp BP Pulse Ox 98.2 F 78 20 139/79 97 05/27/17 08:42 05/27/17 10:15 05/27/17 08:42 05/27/17 10:15 05/27/17 08:42 - Labs Labs: 05/27/17 05:30 05/27/17 05:30 PT 11.8 SECONDS (9.4-12.5) 05/23/17 16:40 INR 1.03 (0.93-1.08) 05/23/17 16:40 APTT 31.0 Seconds (25.1-36.5) 05/24/17 00:10 Attending/Attestation - Attestation I have personally seen and examined this patient.: Yes I have fully participated in the care of the patient.: Yes I have reviewed all pertinent clinical information, including history, physical exam and plan: Yes Notes (Text): 05/28/17 16:29 Patient was seen and examined with medical coding auditor.Agreed with assessment and plan. Management plan was discussed in detail with patient.Education was provided.
[2017-05-26 20:03] VITALS: RESP 20; O2SAT 97
[2017-05-27] MEDS: Cefepime 1gm in NS 100ml 1 GM/100 ML BAG IVPB SCH (05:00)
[2017-05-27 06:27] LABS: BASO # 0.03 K/mm3 (0.0-2.0); BASO % 0.3 % (0.0-3.0); EOS # 0.2 (0.0-0.7); EOS % 2.2 % (1.5-5.0); GRAN # 5.01 (1.4-6.5); GRAN % 57.2 % (50.0-68.0); LYMPH # 2.6 (1.2-3.4); LYMPH % 30.2 % (22.0-35.0); MEAN CELL VOLUME 97.8 fl (80.0-105.0); MEAN CORPUSCULAR HEMOGLOBIN 31.4 pg (25.0-35.0); MEAN CORPUSCULAR HGB CONC 32.1 g/dl (31.0-37.0); MEAN PLATELET VOLUME 13.5 fl (7.0-11.0); MONO # 0.9 (0.1-0.6); MONO % 10.1 % (1.0-6.0); RBC 4.14 10^6/uL (3.5-6.1); RED CELL DISTRIBUTION WIDTH 12.9 % (11.5-14.5); WHITE BLOOD COUNT 8.8 10^3/ul (4.5-11.0)
[2017-05-27 07:06] LABS: ALBUMIN 3.1 g/dL (3.0-4.8); ALT/SGPT 21 U/L (7-56); AST/SGOT 17 U/L (17-59); BLOOD UREA NITROGEN 17 mg/dL (7-21); CALCIUM 8.8 mg/dL (8.4-10.5); GFR AFRICAN-AMERICAN > 60; GFR NON-AFRICAN AMERICAN > 60
[2017-05-27] MEDS: Insulin Reg-HIGH-Coverage SC SCH ×2 (08:40→12:49)
[2017-05-27 08:43] VITALS: BP 139/79; PULSE 78; TEMP 98.2
--- NOTE | 2017-05-27 09:42 | CP.PCM.PN ---
Subjective - Date & Time of Evaluation Date of Evaluation: 05/27/17 Time of Evaluation: 07:30 - Subjective Subjective: Surgery: Dr. Vila Pt seen and examined. No acute overnight events. States he feels well and does not have any complaints. Tolerating diet. Denies N/V, F/C. Objective - Vital Signs/Intake and Output Vital Signs (last 24 hours): Temp Pulse Resp BP Pulse Ox 98.2 F 78 20 139/79 97 05/27/17 08:42 05/27/17 08:42 05/27/17 08:42 05/27/17 08:42 05/27/17 08:42 Intake and Output: 05/27/17 05/27/17 06:59 18:59 Intake Total 540 Output Total 1100 Balance -560 - Medications Medications: Current Medications Aspirin (Ecotrin) 81 mg PO 0800 [facility] Last Admin: 05/26/17 08:42 Dose: 81 mg Atorvastatin Calcium (Lipitor) 20 mg PO DIN [facility] Last Admin: 05/26/17 16:18 Dose: 20 mg Clonazepam (Klonopin) 0.5 mg PO HS [facility] PRN Reason: Protocol Last Admin: 05/26/17 22:05 Dose: 0.5 mg Clopidogrel Bisulfate (Plavix) 75 mg PO DAILY [facility] Last Admin: 05/26/17 10:54 Dose: 75 mg Duloxetine HCl (Cymbalta) 60 mg PO DAILY [facility] Last Admin: 05/26/17 10:52 Dose: 60 mg Famotidine (Pepcid) 20 mg PO DAILY [facility] Furosemide (Lasix) 40 mg PO DAILY [facility] Last Admin: 05/26/17 10:54 Dose: 40 mg Sodium Chloride (Sodium Chloride 0.9%) 1,000 mls @ 100 mls/hr IV .Q10H [facility] Last Admin: 05/26/17 11:55 Dose: 100 mls/hr Cefepime HCl (Maxipime 1gm) 1 gm in 100 mls @ 100 mls/hr IVPB Q8 [facility] PRN Reason: Protocol Stop: 06/02/17 22:01 Last Admin: 05/27/17 05:00 Dose: 100 mls/hr Vancomycin HCl (Vancomycin 1gm) 1 gm in 250 mls @ 167 mls/hr IVPB Q12H [facility] PRN Reason: Protocol Last Admin: 05/26/17 23:52 Dose: 167 mls/hr Insulin Detemir (Levemir) 14 unit SC Q12H [facility] Last Admin: 05/26/17 22:05 Dose: 14 unit Insulin Human Regular (Humulin R High) 0 units SC ACHS [facility] PRN Reason: Protocol Last Admin: 05/27/17 08:40 Dose: Not Given Insulin Lispro Protam/Lispro Human (Humalog Mix 75/25) 38 units SC ACBHS [facility] Last Admin: 05/26/17 22:04 Dose: 38 units Isosorbide Mononitrate (Imdur) 60 mg PO DAILY [facility] Last Admin: 05/26/17 10:53 Dose: 60 mg Levetiracetam (Keppra) 1,000 mg PO BID [facility] Last Admin: 05/26/17 17:38 Dose: 1,000 mg Lisinopril (Zestril) 10 mg PO DIN [facility] Last Admin: 05/26/17 16:18 Dose: 10 mg Metoprolol Tartrate (Lopressor) 50 mg PO BID [facility] Last Admin: 05/26/17 17:38 Dose: 50 mg Quetiapine Fumarate (Seroquel) 100 mg PO [facility] PRN Reason: Protocol Last Admin: 05/26/17 22:05 Dose: 100 mg Tamsulosin HCl (Flomax) 0.4 mg PO [facility] Last Admin: 05/26/17 22:06 Dose: 0.4 mg Tramadol HCl (Ultram) 50 mg PO TID PRN PRN Reason: Pain, moderate (4-7) Last Admin: 05/25/17 23:28 Dose: 50 mg Ziprasidone (Geodon Cap) 60 mg PO BID [facility] PRN Reason: Protocol Last Admin: 05/26/17 17:38 Dose: 60 mg - Labs Labs: 05/27/17 05:30 05/27/17 05:30 PT 11.8 SECONDS (9.4-12.5) 05/23/17 16:40 INR 1.03 (0.93-1.08) 05/23/17 16:40 APTT 31.0 Seconds (25.1-36.5) 05/24/17 00:10 - Constitutional Appears: Well, No Acute Distress - Head Exam Head Exam: ATRAUMATIC, NORMOCEPHALIC - Eye Exam Eye Exam: Normal appearance - ENT Exam ENT Exam: Mucous Membranes Moist - Respiratory Exam Respiratory Exam: NORMAL BREATHING PATTERN - Cardiovascular Exam Cardiovascular Exam: RRR - GI/Abdominal Exam GI & Abdominal Exam: Soft. absent: Distended, Guarding Additional comments: RLQ abdominal wound with packing - Neurological Exam Neurological Exam: Alert, Awake - Skin Skin Exam: Dry, Warm Assessment and Plan - Assessment and Plan (Free Text) Assessment: 56M with abdominal wall cellulitis, s/p bedside I&D Plan: - Pt ok for DC from surgical standpoint - cont daily packing changes - cont PO ABx as per ID recs - f/u with Dr. Vila in 1 week - d/w Dr. Julito Lopez, PGY-3 Surgery
[2017-05-27] MEDS: Insulin Lispro (humaLOG) MIX 75/25(10 ml) SC SCH (10:12)
[2017-05-27] MEDS: Vancomycin 1gm in NS 250ml 1 GM/250 ML BAG IVPB SCH (10:16)
[2017-05-27] MEDS: Insulin Detemir 100 units/ml Vial (Levemir) SC SCH (10:40)
--- NOTE | 2017-05-27 15:51 | CP.PCM.DIS ---
<Kaylie Amos - Last Filed: 05/27/17 15:49> Provider - Provider Date of Admission: 05/23/17 20:11 Attending physician: Teresa Berger MD Primary care physician: Donna Blackwell MD Consults: Surgery Dr Vila ID Dr Green Time Spent in preparation of Discharge (in minutes): 35 Diagnosis - Discharge Diagnosis (1) Cellulitis and abscess Status: Acute Hospital Course - Lab Results Lab Results: Micro Results 05/24/17 18:25 Naris MRSA Culture (Admit) - Final MRSA NOT DETECTED 05/24/17 12:00 Abdomen Gram Stain - Final 05/24/17 12:00 Abdomen Wound Culture - Final Coagulase Neg Staphylococcus Corynebacterium Species 05/23/17 20:20 Urine Urine Culture - Final 10-50,000 CFU/ML. MULTIPLE SPECIES. PROBABLE CONTAMINATION. Most Recent Lab Values WBC 8.8 10^3/ul (4.5-11.0) 05/27/17 05:30 RBC 4.14 10^6/uL (3.5-6.1) 05/27/17 05:30 Hgb 13.0 g/dL (14.0-18.0) L 05/27/17 05:30 Hct 40.5 % (42.0-52.0) L 05/27/17 05:30 MCV 97.8 fl (80.0-105.0) 05/27/17 05:30 MCH 31.4 pg (25.0-35.0) 05/27/17 05:30 MCHC 32.1 g/dl (31.0-37.0) 05/27/17 05:30 RDW 12.9 % (11.5-14.5) 05/27/17 05:30 Plt Count 151 10^3/uL (120.0-450.0) 05/27/17 05:30 MPV 13.5 fl (7.0-11.0) H 05/27/17 05:30 Gran % 57.2 % (50.0-68.0) 05/27/17 05:30 Lymph % (Auto) 30.2 % (22.0-35.0) 05/27/17 05:30 Johnson % (Auto) 10.1 % (1.0-6.0) H 05/27/17 05:30 Eos % (Auto) 2.2 % (1.5-5.0) 05/27/17 05:30 Baso % (Auto) 0.3 % (0.0-3.0) 05/27/17 05:30 Gran # 5.01 (1.4-6.5) 05/27/17 05:30 Lymph # 2.6 (1.2-3.4) 05/27/17 05:30 Johnson # 0.9 (0.1-0.6) H 05/27/17 05:30 Eos # 0.2 (0.0-0.7) 05/27/17 05:30 Baso # 0.03 K/mm3 (0.0-2.0) 05/27/17 05:30 PT 11.8 SECONDS (9.4-12.5) 05/23/17 16:40 INR 1.03 (0.93-1.08) 05/23/17 16:40 APTT 31.0 Seconds (25.1-36.5) 05/24/17 00:10 Sodium 142 mmol/L (132-148) 05/27/17 05:30 Potassium 3.7 mmol/L (3.6-5.0) 05/27/17 05:30 Chloride 106 mmol/L (98-107) 05/27/17 05:30 Carbon Dioxide 29 mmol/L (21-33) 05/27/17 05:30 Anion Gap 11 (10-20) 05/27/17 05:30 BUN 17 mg/dL (7-21) 05/27/17 05:30 Creatinine 0.8 mg/dl (0.8-1.5) 05/27/17 05:30 Est GFR ( Amer) > 60 05/27/17 05:30 Est GFR (Non-Af Amer) > 60 05/27/17 05:30 POC Glucose (mg/dL) 191 mg/dL (65-110) H 05/27/17 11:13 Random Glucose 114 mg/dL (70-110) H 05/27/17 05:30 Hemoglobin A1c 11.4 % (4.2-6.5) H 05/24/17 06:30 Calcium 8.8 mg/dL (8.4-10.5) 05/27/17 05:30 Total Bilirubin 0.3 mg/dL (0.2-1.3) 05/27/17 05:30 AST 17 U/L (17-59) 05/27/17 05:30 ALT 21 U/L (7-56) 05/27/17 05:30 Alkaline Phosphatase 55 U/L (38-126) 05/27/17 05:30 Total Protein 6.3 g/dL (5.8-8.3) 05/27/17 05:30 Albumin 3.1 g/dL (3.0-4.8) 05/27/17 05:30 Globulin 3.2 gm/dL 05/27/17 05:30 Albumin/Globulin Ratio 1.0 (1.1-1.8) L 05/27/17 05:30 Triglycerides 178 mg/dL (35-160) H 05/24/17 07:30 Cholesterol 117 mg/dL (130-200) L 05/24/17 07:30 LDL Cholesterol Direct 40 mg/dL (0-129) 05/24/17 07:30 HDL Cholesterol 31 mg/dL (29-60) 05/24/17 07:30 Procalcitonin < 0.05 NG/ML (0.19-0.49) L 05/24/17 00:10 Urine Color Yellow (YELLOW) 05/23/17 20:20 Urine Appearance Sl cloudy (CLEAR) 05/23/17 20:20 Urine pH 6.0 (4.7-8.0) 05/23/17 20:20 Ur Specific [place] 1.015 (1.005-1.035) 05/23/17 20:20 Urine Protein Trace mg/dL (<30 mg/dL) H 05/23/17 20:20 Urine Glucose (UA) >=1000 mg/dL (NEGATIVE) 05/23/17 20:20 Urine Ketones Negative mg/dL (NEGATIVE) 05/23/17 20:20 Urine Blood Small (NEGATIVE) H 05/23/17 20:20 Urine Nitrate Negative (NEGATIVE) 05/23/17 20:20 Urine Bilirubin Negative (NEGATIVE) 05/23/17 20:20 Urine Urobilinogen 0.2 E.U./dL (<1 E.U./dL) 05/23/17 20:20 Ur Leukocyte Esterase Moderate Iris/uL (NEGATIVE) H 05/23/17 20:20 Urine RBC 10 - 15 /hpf (0-2) 05/23/17 20:20 Urine WBC Tntc /hpf (0-6) 05/23/17 20:20 Ur Epithelial Cells 6 - 8 /hpf (0-5) 05/23/17 20:20 Urine Bacteria Many (NEG) 05/23/17 20:20 - Hospital Course Hospital Course: 56 year old male with past medical history of diabetes mellitus, hypertension, coronary artery disease s/p 8 stents, hyperlipidemia, systolic heart failure EF 34%, and cerebrovascular accident presents to the Emergency department via taxi with complaints of lower right quadrant swelling and pain at site of insulin injection. He states he first noticed the swelling six days ago. Patient has a h /o abscess but MRSA status is unknown. He describes the pain as dull, burning, constant, and 9/10 severity without radiation. It is worsened by movement and nothing makes it better. He has not tried any pain medications.The abscess measures 10cm x 7cm. Denies any drainage from wound, fever, chills, nausea, vomiting, diarrhea, constipation, shortness of breath, chest pain. CT abdomen/ pelvis showed abdominal cellulitis. Pt was started on IV antibiotics. Surgery was consulted, bedside I&D was done. ID was also consulted, and pt was then put on Vancomycine and Zosyn. Wound culture grew coag neg Staph and corynebacterium. Surgery and ID cleared patient for discharge. Discharged on PO Doxycycline and Augmentin for 5 days. Pt also set up with visiting nurses to change his abdominal dressing at home. Girlfriend/multimedia services manager at bedside, aware of the plan. Pt to follow up with Dr Vila in 1 week. Discharge Exam - Head Exam Head Exam: ATRAUMATIC, NORMOCEPHALIC - Eye Exam Eye Exam: EOMI, PERRL. absent: Conjunctival injection, Scleral icterus Pupil Exam: NORMAL ACCOMODATION, PERRL - ENT Exam ENT Exam: Mucous Membranes Moist - Neck Exam Neck exam: Full Rom - Respiratory Exam Respiratory Exam: Clear to PA & Lateral, NORMAL BREATHING PATTERN, UNREMARKABLE. absent: Accessory Muscle Use, Chest Wall Tenderness, Rales, Rhonchi, Stridor - Cardiovascular Exam Cardiovascular Exam: RRR, +S1, +S2. absent: Systolic Murmur - GI/Abdominal Exam GI & Abdominal Exam: Normal Bowel Sounds, Soft. absent: Tenderness Additional comments: RLQ abdominal dressing site c/d/i. No TTP at the site or erythema noted. - Extremities Exam Extremities exam: normal inspection - Back Exam Back exam: NORMAL INSPECTION - Neurological Exam Neurological exam: Alert, Oriented x3 - Psychiatric Exam Psychiatric exam: Normal Affect, Normal Mood - Skin Skin Exam: Dry, Normal Color, Warm Discharge Plan - Discharge Medications Prescriptions: Amoxicillin/Clavulanate [Augmentin 875 MG-125 MG] 1 tab PO BID 5 Days tab Amoxicillin/Clavulanate [Augmentin 875 MG-125 MG] 1 tab PO BID #10 tab Doxycycline Hyclate 100 mg PO Q12H 8 Days capsule Doxycycline Hyclate 100 mg PO BID 5 Days capsule traMADol [Ultram] 50 mg PO Q6H PRN 3 Days tab PRN Reason: Pain, Moderate (4-7) - Follow Up Plan Condition: STABLE Disposition: HOME/ ROUTINE Patient education suggested?: Yes Instructions: Cellulitis (DC), Cellulitis (GEN), Abscess (GEN) Additional Instructions: Please follow up with General Surgeon (Dr. Vila) within 1 week. Please take antibiotic medication as instructed and to completion. Please change wound packaging/dressing daily. - Take Augmentin and Doxycycline for 5 days. - Follow up with PMD in 1 week. - Return to ER if any concerns. Referrals: Donna Blackwell MD [Primary Care Provider] - Jef Vila MD [Staff Provider] - <Teresa Berger - Last Filed: 05/28/17 16:34> Provider - Provider Date of Admission: 05/23/17 20:11 Attending physician: Teresa Berger MD Primary care physician: Donna Blackwell MD Hospital Course - Lab Results Lab Results: Micro Results 05/24/17 18:25 Naris MRSA Culture (Admit) - Final MRSA NOT DETECTED 05/24/17 12:00 Abdomen Gram Stain - Final 05/24/17 12:00 Abdomen Wound Culture - Final Coagulase Neg Staphylococcus Corynebacterium Species 05/23/17 20:20 Urine Urine Culture - Final 10-50,000 CFU/ML. MULTIPLE SPECIES. PROBABLE CONTAMINATION. Most Recent Lab Values WBC 8.8 10^3/ul (4.5-11.0) 05/27/17 05:30 RBC 4.14 10^6/uL (3.5-6.1) 05/27/17 05:30 Hgb 13.0 g/dL (14.0-18.0) L 05/27/17 05:30 Hct 40.5 % (42.0-52.0) L 05/27/17 05:30 MCV 97.8 fl (80.0-105.0) 05/27/17 05:30 MCH 31.4 pg (25.0-35.0) 05/27/17 05:30 MCHC 32.1 g/dl (31.0-37.0) 05/27/17 05:30 RDW 12.9 % (11.5-14.5) 05/27/17 05:30 Plt Count 151 10^3/uL (120.0-450.0) 05/27/17 05:30 MPV 13.5 fl (7.0-11.0) H 05/27/17 05:30 Gran % 57.2 % (50.0-68.0) 05/27/17 05:30 Lymph % (Auto) 30.2 % (22.0-35.0) 05/27/17 05:30 Johnson % (Auto) 10.1 % (1.0-6.0) H 05/27/17 05:30 Eos % (Auto) 2.2 % (1.5-5.0) 05/27/17 05:30 Baso % (Auto) 0.3 % (0.0-3.0) 05/27/17 05:30 Gran # 5.01 (1.4-6.5) 05/27/17 05:30 Lymph # 2.6 (1.2-3.4) 05/27/17 05:30 Johnson # 0.9 (0.1-0.6) H 05/27/17 05:30 Eos # 0.2 (0.0-0.7) 05/27/17 05:30 Baso # 0.03 K/mm3 (0.0-2.0) 05/27/17 05:30 PT 11.8 SECONDS (9.4-12.5) 05/23/17 16:40 INR 1.03 (0.93-1.08) 05/23/17 16:40 APTT 31.0 Seconds (25.1-36.5) 05/24/17 00:10 Sodium 142 mmol/L (132-148) 05/27/17 05:30 Potassium 3.7 mmol/L (3.6-5.0) 05/27/17 05:30 Chloride 106 mmol/L (98-107) 05/27/17 05:30 Carbon Dioxide 29 mmol/L (21-33) 05/27/17 05:30 Anion Gap 11 (10-20) 05/27/17 05:30 BUN 17 mg/dL (7-21) 05/27/17 05:30 Creatinine 0.8 mg/dl (0.8-1.5) 05/27/17 05:30 Est GFR ( Amer) > 60 05/27/17 05:30 Est GFR (Non-Af Amer) > 60 05/27/17 05:30 POC Glucose (mg/dL) 191 mg/dL (65-110) H 05/27/17 11:13 Random Glucose 114 mg/dL (70-110) H 05/27/17 05:30 Hemoglobin A1c 11.4 % (4.2-6.5) H 05/24/17 06:30 Calcium 8.8 mg/dL (8.4-10.5) 05/27/17 05:30 Total Bilirubin 0.3 mg/dL (0.2-1.3) 05/27/17 05:30 AST 17 U/L (17-59) 05/27/17 05:30 ALT 21 U/L (7-56) 05/27/17 05:30 Alkaline Phosphatase 55 U/L (38-126) 05/27/17 05:30 Total Protein 6.3 g/dL (5.8-8.3) 05/27/17 05:30 Albumin 3.1 g/dL (3.0-4.8) 05/27/17 05:30 Globulin 3.2 gm/dL 05/27/17 05:30 Albumin/Globulin Ratio 1.0 (1.1-1.8) L 05/27/17 05:30 Triglycerides 178 mg/dL (35-160) H 05/24/17 07:30 Cholesterol 117 mg/dL (130-200) L 05/24/17 07:30 LDL Cholesterol Direct 40 mg/dL (0-129) 05/24/17 07:30 HDL Cholesterol 31 mg/dL (29-60) 05/24/17 07:30 Procalcitonin < 0.05 NG/ML (0.19-0.49) L 05/24/17 00:10 Urine Color Yellow (YELLOW) 05/23/17 20:20 Urine Appearance Sl cloudy (CLEAR) 05/23/17 20:20 Urine pH 6.0 (4.7-8.0) 05/23/17 20:20 Ur Specific [place] 1.015 (1.005-1.035) 05/23/17 20:20 Urine Protein Trace mg/dL (<30 mg/dL) H 05/23/17 20:20 Urine Glucose (UA) >=1000 mg/dL (NEGATIVE) 05/23/17 20:20 Urine Ketones Negative mg/dL (NEGATIVE) 05/23/17 20:20 Urine Blood Small (NEGATIVE) H 05/23/17 20:20 Urine Nitrate Negative (NEGATIVE) 05/23/17 20:20 Urine Bilirubin Negative (NEGATIVE) 05/23/17 20:20 Urine Urobilinogen 0.2 E.U./dL (<1 E.U./dL) 05/23/17 20:20 Ur Leukocyte Esterase Moderate Iris/uL (NEGATIVE) H 05/23/17 20:20 Urine RBC 10 - 15 /hpf (0-2) 05/23/17 20:20 Urine WBC Tntc /hpf (0-6) 05/23/17 20:20 Ur Epithelial Cells 6 - 8 /hpf (0-5) 05/23/17 20:20 Urine Bacteria Many (NEG) 05/23/17 20:20 Attending/Attestation - Attestation I have personally seen and examined this patient.: Yes I have fully participated in the care of the patient.: Yes I have reviewed all pertinent clinical information, including history, physical exam and plan: Yes Notes (Text): 05/28/17 16:31 Patient was seen and examined with medical office administrator.Agreed with assesment and plan. 56 year old male with past medical history of diabetes, hypertension, CAD s/p stents, CHF, and CVA who presented with RLQ pain and erythema.CT abd/pelvis showed abdominal wall cellulitis /abscess. Patient is s/p I&D , cultures are negative.He is feeling better.He is afebrile.He will be discharged home on PO antibiotic Augmentin and doxycycline as per ID. Continue with wound care as per surgery and antibiotics as per ID .He will follow up with PCP and Surgery. Management plan was discussed in detail with patient. Education was provided.
--- NOTE | 2017-05-28 00:45 | PN ---
DATE: 05/27/2017 SUBJECTIVE: The patient is seen earlier today. No fever or chills. PHYSICAL EXAMINATION: VITAL SIGNS: Temperature is 98, blood pressure is 120/70, respiratory rate of 16. HEENT: Unremarkable. NECK: Supple. LUNGS: Have decreased breath sounds. HEART: Normal S1 and S2. ABDOMEN: Soft. LABORATORY DATA: Noted and reviewed. The cultures are reviewed. ASSESSMENT AND PLAN: This is a 56-year-old male with abdominal wall abscess and cellulitis status post incision and drainage. The cultures are noted, we will follow with p.o. Augmentin and p.o. doxycycline. I discussed with this patient. We will follow closely with you. Delvin Hahn MD
== END 2017-05-27 15:00 | disposition home or self-care (01) | DRG 563 ==
LOC: ED 15:53 → ERH 20:11 → 3RNO 23:18
PROVIDERS: ADMIT Hospitalist; ATTEND Internal Medicine
PROC: 0H97XZZ Drainage of Abdomen Skin, External Approach (ICD-10-PCS; principal; 2017-05-24)
DX: L03.311 Cellulitis of abdominal wall (principal); L02.211 Cutaneous abscess of abdominal wall; I50.40 Unspecified combined systolic (congestive) and diastolic (congestive) heart failure; J18.9 Pneumonia, unspecified organism; E10.42 Type 1 diabetes mellitus with diabetic polyneuropathy; G91.2 (Idiopathic) normal pressure hydrocephalus; I11.0 Hypertensive heart disease with heart failure; N39.0 Urinary tract infection, site not specified; F20.89 Other schizophrenia; E66.01 Morbid (severe) obesity due to excess calories; E10.9 Type 1 diabetes mellitus without complications; B96.20 Unspecified Escherichia coli [E. coli] as the cause of diseases classified elsewhere; J44.0 Chronic obstructive pulmonary disease with (acute) lower respiratory infection; J98.11 Atelectasis; I25.10 Atherosclerotic heart disease of native coronary artery without angina pectoris; E78.5 Hyperlipidemia, unspecified; F41.9 Anxiety disorder, unspecified; G47.30 Sleep apnea, unspecified; F31.9 Bipolar disorder, unspecified; Z68.41 Body mass index [BMI] 40.0-44.9, adult; I25.2 Old myocardial infarction; Z86.73 Personal history of transient ischemic attack (TIA), and cerebral infarction without residual deficits; Z95.5 Presence of coronary angioplasty implant and graft; Z87.891 Personal history of nicotine dependence

== ENCOUNTER 2017-06-01 21:16 | Emergency (ER) | payer MEDICAID ==
[2017-06-01 21:16] VITALS: BMI 36.5
--- NOTE | 2017-06-01 21:50 | ED PDOC ---
Arrival/HPI - General Chief Complaint: GI Problem Time Seen by Provider: 06/01/17 21:21 Historian: Patient - History of Present Illness Narrative History of Present Illness (Text): 06/01/17 21:50 Frank Welsh is a 56 year old male, whose past medical history includes diabetes, hypertension, CAD s/p 8 stents, hyperlipidemia, CHF, and CVA, who presents to the Emergency department complaining of "flu-like symptoms". Patient states he has been experiencing occassional episode of vomiting, and diarrhea for the past 2 days. Patient notes he was recently discharged from hospital following incision and drainage of right lower quadrant skin abscess on 05/27/17. Patient denies any fever, chest pain, shortness of breath, cough , neck pain, headache, dizziness, or any other complaints. Symptom Onset: Gradual Symptom Course: Unchanged Activities at Onset: Light Context: Home Past Medical History - Provider Review Nursing Documentation Reviewed: Yes - Infectious Disease Hx of Infectious Diseases: None - Tetanus Immunization Tetanus Immunization: Unknown - Cardiac Hx Hypertension: Yes - Pulmonary Hx Chronic Obstructive Pulmonary Disease (COPD): Yes Hx Sleep Apnea: Yes (on bipap) - Neurological HX Cerebrovascular Accident: Yes - HEENT Hx HEENT Disorder: No - Renal Hx Renal Disorder: No - Endocrine/Metabolic Hx Diabetes Mellitus Type 2: Yes - Hematological/Oncological Hx Blood Disorders: Yes (blood transfusion) - Integumentary Hx Dermatological Disorder: No - Musculoskeletal/Rheumatological Hx Falls: Yes - Gastrointestinal Hx Gastrointestinal Disorders: Yes - Genitourinary/Gynecological Hx Prostate Problems: Yes - Psychiatric Hx Anxiety: Yes Hx Bipolar Disorder: Yes Hx Depression: Yes Hx Hallucinations: Yes Hx Schizophrenia: Yes Hx Substance Use: No - Surgical History Hx Appendectomy: Yes Hx Cardiac Catheterization: Yes (angioplasty 7 stents) Hx Coronary Stent: Yes - Anesthesia Hx Anesthesia: Yes Hx Anesthesia Reactions: No Hx Malignant Hyperthermia: No - Suicidal Assessment Feels Threatened In Home Enviroment: No Family/Social History - Physician Review Nursing Documentation Reviewed: Yes Family/Social History: Unknown Family HX Smoking Status: Former Smoker Hx Alcohol Use: No Hx Substance Use: No Hx Substance Use Treatment: No Allergies/Home Meds Allergies/Adverse Reactions: Allergies FISH Allergy (Mild, Verified 05/03/17 06:23) ITCHING Home Medications: Home Meds Medication Instructions Recorded Confirmed Aspirin 325 mg PO DAILY 05/03/17 06/01/17 Clonazepam [Klonopin] 0.5 mg PO HS 05/03/17 06/01/17 DULoxetine [Cymbalta] 60 mg PO DAILY 05/03/17 06/01/17 Insulin Glargine,Hum.rec.anlog 28 unit SQ HS 05/03/17 06/01/17 [Lantus Solostar] Insulin Lispro Protamin/Lispro 38 unit SQ ACBHS 05/03/17 06/01/17 [Humalog Mix 75-25 Kwikpen] Levetiracetam [Keppra] 1,000 mg PO BID 05/03/17 06/01/17 Lisinopril [Zestril] 10 mg PO DIN 05/03/17 06/01/17 Metoprolol Tartrate [Lopressor] 50 mg PO BID 05/03/17 06/01/17 Potassium Chloride [Klor-Con] 20 meq PO DAILY 05/03/17 06/01/17 QUEtiapine [Seroquel] 100 mg PO HS 05/03/17 06/01/17 Ranitidine HCl [Acid Cable Tv Installer 150] 150 mg PO BID 05/03/17 06/01/17 Tamsulosin [Flomax] 0.4 mg PO HS 05/03/17 06/01/17 Ziprasidone [Geodon Cap] 60 mg PO BID 05/03/17 06/01/17 Review of Systems - Physician Review All systems were reviewed & negative as marked: Yes - Review of Systems Constitutional: Fevers Eyes: Normal ENT: Normal Respiratory: absent: SOB Cardiovascular: Normal. absent: Chest Pain Gastrointestinal: Diarrhea, Vomiting Genitourinary Male: Normal. absent: Dysuria, Frequency, Hematuria, Urinary Output Changes Musculoskeletal: Normal. absent: Back Pain, Neck Pain Skin: Normal. absent: Rash Neurological: Normal. absent: Headache, Dizziness Endocrine: Normal Hemo/Lymphatic: Normal Psychiatric: Normal Physical Exam Vital Signs Reviewed: Yes Vital Signs Temp Pulse Resp BP Pulse Ox 06/02/17 01:26 98.1 F 109 H 16 157/76 H 95 06/01/17 22:35 109 H 18 145/83 95 06/01/17 21:17 98.3 F 115 H 18 172/97 H 93 L Temperature: Afebrile Blood Pressure: Hypertensive Pulse: Regular Respiratory Rate: Normal Appearance: Positive for: Well-Appearing, Non-Toxic, Comfortable Pain Distress: None Mental Status: Positive for: Alert and Oriented X 3 - Systems Exam Head: Present: Atraumatic, Normocephalic Pupils: Present: PERRL Extroacular Muscles: Present: EOMI Conjunctiva: Present: Normal Mouth: Present: Moist Mucous Membranes Neck: Present: Normal Range of Motion Respiratory/Chest: Present: Clear to Auscultation, Good Air Exchange. No: Respiratory Distress, Accessory Muscle Use Cardiovascular: Present: Regular Rate and Rhythm, Normal S1, S2. No: Murmurs Abdomen: Present: Normal Bowel Sounds, Other (Surgical wound to right lateral abdomen). No: Tenderness, Distention, Peritoneal Signs Back: Present: Normal Inspection Upper Extremity: Present: Normal Inspection. No: Cyanosis, Edema Lower Extremity: Present: Normal Inspection. No: Edema Neurological: Present: GCS=15, CN II-XII Intact, Speech Normal Skin: Present: Warm, Dry, Normal Color. No: Rashes Psychiatric: Present: Alert, Oriented x 3, Normal Insight, Normal Concentration Medical Decision Making ED Course and Treatment: 06/01/17 21:50 Impression: 56 year old male complaining of flu-like symptoms occassional episode vomiting , and diarrhea x2 days. Plan: -- Labs, lipase -- Rapid influenza -- IV fluids -- Zofran -- Pepcid -- Reassess and disposition Progress Notes: 06/02/17 01:30 Pt. remained completely asymptomatic while in ED.States he feels fine. - Lab Interpretations Lab Results: 06/01/17 22:00 06/01/17 22:00 Lab Results 06/01/17 22:00: Influenza Typ A,B (EIA) Negative for flu a/b 06/01/17 22:00: WBC 11.4 H D, RBC 4.72, Hgb 15.0 D, Hct 44.7, MCV 94.7 D, MCH 31.8, MCHC 33.6, RDW 12.6, Plt Count 139, MPV 12.5 H 06/01/17 22:00: Sodium 137, Potassium 3.7, Chloride 100, Carbon Dioxide 27, Anion Gap 15, BUN 14, Creatinine 0.7 L, Est GFR ( Amer) > 60, Est GFR ( Non-Af Amer) > 60, Random Glucose 216 H, Calcium 8.9, Total Bilirubin 0.4, AST 28, ALT 41, Alkaline Phosphatase 61, Total Protein 6.5, Albumin 3.4, Globulin 3.2, Albumin/Globulin Ratio 1.1, Lipase 56 - Medication Orders Current Medication Orders: Discontinued Medications Famotidine (Pepcid) 20 mg IVP STAT STA Stop: 06/01/17 21:53 Last Admin: 06/01/17 22:04 Dose: 20 mg IVP Administration Document 06/01/17 22:04 GMD (Rec: 06/01/17 22:04 GMD [id number]) Charges for Administration # of IVP Administrations 1 Sodium Chloride (Sodium Chloride 0.9%) 1,000 mls @ 50 mls/hr IV .Q20H OTTONIEL Last Admin: 06/01/17 22:05 Dose: 50 mls/hr eMAR Start Stop Document 06/01/17 22:05 GMD (Rec: 06/01/17 22:05 GMD [id number]) Intravenous Solution Start Date 06/01/17 Start Time 22:05 Ondansetron HCl (Zofran Inj) 4 mg IVP ONCE ONE Stop: 06/01/17 21:53 Last Admin: 06/01/17 22:04 Dose: 4 mg IVP Administration Document 06/01/17 22:04 GMD (Rec: 06/01/17 22:04 GMD [id number]) Charges for Administration # of IVP Administrations 1 - Scribe Statement The provider has reviewed the documentation as recorded by the Scribcarlton Flanagan All medical record entries made by the Thomasibcarlton were at my direction and personally dictated by me. I have reviewed the chart and agree that the record accurately reflects my personal performance of the history, physical exam, medical decision making, and the department course for this patient. I have also personally directed, reviewed, and agree with the discharge instructions and disposition. Disposition/Present on Arrival - Present on Arrival Any Indicators Present on Arrival: No History of DVT/PE: No History of Uncontrolled Diabetes: Yes Urinary Catheter: No History of Decub. Ulcer: No History Surgical Site Infection Following: None - Disposition Have Diagnosis and Disposition been Completed?: Yes Diagnosis: Gastroenteritis Disposition: HOME/ ROUTINE Disposition Time: :35 Patient Plan: Discharge Condition: GOOD Additional Instructions: Drink small amounts of liquids at a time/advance diet as tolerated/follow up with your doctor this week/any recurrent worsening symptoms return to the emergency room Forms: [employer] (Serbian)
[2017-06-01] MEDS ORDERED: Sodium Chloride 0.9% 1,000 ML IV STA (21:52)
[2017-06-01] MEDS ORDERED: Sodium Chloride 0.9% 1,000 ML IV SCH (22:00)
[2017-06-01 22:35] VITALS: PULSE 109; O2SAT 95
[2017-06-01 22:43] LABS: MEAN CELL VOLUME 94.7 fl (80.0-105.0); MEAN CORPUSCULAR HEMOGLOBIN 31.8 pg (25.0-35.0); MEAN CORPUSCULAR HGB CONC 33.6 g/dl (31.0-37.0); MEAN PLATELET VOLUME 12.5 fl (7.0-11.0); RBC 4.72 10^6/uL (3.5-6.1); RED CELL DISTRIBUTION WIDTH 12.6 % (11.5-14.5); WHITE BLOOD COUNT 11.4 10^3/ul (4.5-11.0)
[2017-06-01 23:17] LABS: ALB/GLOB RATIO 1.1 (1.1-1.8); ALBUMIN 3.4 g/dL (3.0-4.8); ALT/SGPT 41 U/L (7-56); AST/SGOT 28 U/L (17-59); BLOOD UREA NITROGEN 14 mg/dL (7-21); CALCIUM 8.9 mg/dL (8.4-10.5); GFR AFRICAN-AMERICAN > 60; GFR NON-AFRICAN AMERICAN > 60; LIPASE 56 U/L (23-300)
[2017-06-02 01:27] VITALS: BP 157/76; RESP 16; TEMP 98.1
== END 2017-06-02 01:40 | disposition home or self-care (01) ==
LOC: ED 21:16
DX: K52.9 Noninfective gastroenteritis and colitis, unspecified (principal)
CPT/HCPCS: 80053; 83690; 85027; 87804; 96374; 96375; 99285; J2405; J7040

== ENCOUNTER 2018-07-13 21:56 | Inpatient (IN) | payer MEDICAID ==
[2018-07-13 22:13] VITALS: BMI 38.0
[2018-07-13 22:50] LABS: HEMOGLOBIN 14.6 g/dL (14.0-18.0); MEAN CORPUSCULAR HEMOGLOBIN 31.5 pg (25.0-35.0); MEAN CORPUSCULAR HGB CONC 32.4 g/dl (31.0-37.0); MEAN PLATELET VOLUME 13.2 fl (7.0-11.0); RBC 4.64 10^6/uL (3.5-6.1); RED CELL DISTRIBUTION WIDTH 13.3 % (11.5-14.5); WHITE BLOOD COUNT 8.5 10^3/uL (4.5-11.0)
--- NOTE | 2018-07-13 22:54 | ED PDOC ---
Arrival/HPI - General Chief Complaint: Male Genitourinary Time Seen by Provider: 07/13/18 22:06 Historian: Patient - History of Present Illness Narrative History of Present Illness (Text): 07/13/18 22:49 58 year old male, whose past medical history includes coronary artery disease, morbid obesity, diabetes mellitus, nph with vp purchasing shunt, and schizophrenia, who presents to the emergency department complaining of worsening cellulitis to the groin and abdominal area. Patient reports associated scrotal edema and testicular swelling. states she has been applying steroids cream with no relief. He denies any pain to scrotum, fevers, chills, headache, dizziness, chest pain, shortness of breath, dyspnea on exertion, cough, abdominal pain, nausea, vomiting, diarrhea, back pain, neck pain, or any other complaint. Time/Duration: Prior to Arrival Symptom Onset: Gradual Symptom Course: Unchanged Activities at Onset: Light Context: Home Past Medical History - Provider Review Nursing Documentation Reviewed: Yes - Infectious Disease Hx of Infectious Diseases: None - Tetanus Immunization Tetanus Immunization: Unknown - Cardiac Hx Hypertension: Yes - Pulmonary Hx Chronic Obstructive Pulmonary Disease (COPD): Yes Hx Sleep Apnea: Yes (on bipap) - Neurological HX Cerebrovascular Accident: Yes - HEENT Hx HEENT Disorder: No - Renal Hx Renal Disorder: No - Endocrine/Metabolic Hx Diabetes Mellitus Type 2: Yes - Hematological/Oncological Hx Blood Disorders: Yes (blood transfusion) - Integumentary Hx Dermatological Disorder: No - Musculoskeletal/Rheumatological Hx Falls: Yes - Gastrointestinal Hx Gastrointestinal Disorders: Yes - Genitourinary/Gynecological Hx Prostate Problems: Yes - Psychiatric Hx Anxiety: Yes Hx Bipolar Disorder: Yes Hx Depression: Yes Hx Hallucinations: Yes Hx Schizophrenia: Yes Hx Substance Use: No - Surgical History Hx Appendectomy: Yes Hx Cardiac Catheterization: Yes (angioplasty 7 stents) Hx Coronary Stent: Yes - Anesthesia Hx Anesthesia: Yes Hx Anesthesia Reactions: No Hx Malignant Hyperthermia: No - Suicidal Assessment Feels Threatened In Home Enviroment: No Family/Social History - Physician Review Nursing Documentation Reviewed: Yes Family/Social History: No Known Family HX Smoking Status: Former Smoker Hx Alcohol Use: No Hx Substance Use: No Hx Substance Use Treatment: No Allergies/Home Meds Allergies/Adverse Reactions: Allergies FISH Allergy (Mild, Verified 07/13/18 22:15) ITCHING shellfish derived Allergy (Verified 07/13/18 22:15) ANAPHYLAXIS Home Medications: Home Meds Medication Instructions Recorded Confirmed Aspirin 325 mg PO DAILY 05/03/17 07/13/18 Clonazepam [Klonopin] 0.5 mg PO HS 05/03/17 07/13/18 DULoxetine [Cymbalta] 60 mg PO DAILY 05/03/17 07/13/18 Insulin Glargine,Hum.rec.anlog 28 unit SQ HS 05/03/17 07/13/18 [Lantus Solostar] Insulin Lispro Protamin/Lispro 38 unit SQ ACBHS 05/03/17 07/13/18 [Humalog Mix 75-25 Kwikpen] Lisinopril [Zestril] 10 mg PO DIN 05/03/17 07/13/18 Metoprolol Tartrate [Lopressor] 50 mg PO BID 05/03/17 07/13/18 Potassium Chloride [Klor-Con] 20 meq PO DAILY 05/03/17 07/13/18 QUEtiapine [Seroquel] 100 mg PO HS 05/03/17 07/13/18 Ranitidine HCl [Acid Manager Radiation 150] 150 mg PO BID 05/03/17 07/13/18 Tamsulosin [Flomax] 0.4 mg PO HS 05/03/17 07/13/18 Ziprasidone [Geodon Cap] 60 mg PO BID 05/03/17 07/13/18 Review of Systems - Physician Review All systems were reviewed & negative as marked: Yes - Review of Systems Constitutional: absent: Fevers Respiratory: absent: SOB, Cough Cardiovascular: absent: Chest Pain Gastrointestinal: absent: Abdominal Pain, Diarrhea, Nausea, Vomiting Genitourinary Male: Other ( scrotal edema and testicular swelling) Musculoskeletal: absent: Back Pain, Neck Pain Skin: Cellulitis (cellulitis to the groin and abdominal area) Neurological: absent: Headache, Dizziness Physical Exam Vital Signs Reviewed: Yes Vital Signs Temp Pulse Resp BP Pulse Ox 07/13/18 22:15 99.1 F 99 H 18 142/73 100 Temperature: Afebrile Blood Pressure: Normal Pulse: Tachycardic Respiratory Rate: Normal Appearance: Positive for: Well-Appearing, Non-Toxic, Comfortable, Other (morbidly obese ) Pain Distress: None Mental Status: Positive for: Alert and Oriented X 3 - Systems Exam Head: Present: Atraumatic, Normocephalic Pupils: Present: PERRL Extroacular Muscles: Present: EOMI Conjunctiva: Present: Normal Mouth: Present: Moist Mucous Membranes Neck: Present: Normal Range of Motion Respiratory/Chest: Present: Clear to Auscultation, Good Air Exchange. No: Respiratory Distress, Accessory Muscle Use Cardiovascular: Present: Regular Rate and Rhythm, Normal S1, S2. No: Murmurs Abdomen: No: Tenderness, Distention, Peritoneal Signs Genitourinary Male: Present: Erythema (erythema to the lower abdomen, pelvic, and groin area.), Other ( massive scrotal edema overlying erythema ). No: Testicle Tenderness (unable to fully palpate testicle, no palpable tenderness) Back: Present: Normal Inspection Upper Extremity: Present: Normal Inspection. No: Cyanosis, Edema Lower Extremity: Present: Normal Inspection. No: Edema Neurological: Present: GCS=15, CN II-XII Intact, Speech Normal Skin: Present: Warm, Dry, Normal Color, Other (positive pannus, extensive confluent; cellulitis to the lower abdomen, pelvic, and groina area.). No: Rashes Psychiatric: Present: Alert, Oriented x 3, Normal Insight, Normal Concentration Medical Decision Making ED Course and Treatment: 07/13/18 23:05 Impression: 58 year old male, who presents to the emergency department complaining of cellulitis to abdominal and groin area. Plan: -- CT of abdomen and Pelvis -- Labs -- Blood Culture -- Testes US -- Reassess and disposition Prior Visits: Notes and results from previous visits were reviewed. Progress Notes: 07/14/18 00:57 Testes US reviewed by radiologist, shows: Impression: Mild bilateral hydroceles. Scrotal edema and swelling, probably cellulitis. Unremarkable testicles. 07/14/18 01:33 CT of abdomen and Pelvis reviewed by radiologist, shows: IMPRESSION: 1. Again seen is a large fat containing left inguinal hernia and a small fat containing right inguinal hernia. These appear overall little changed from May 23, 2017. 2. There is constipation the colon. There is mild sigmoid diverticulosis without convincing evidence for acute diverticulitis. 3. There is a fat containing periumbilical hernia which is little change from the 2018 study. 4. Additional findings as described above. 07/14/18 01:49 Case discussed with medical observer and Dr. Mae who accepts patient into his service. - Lab Interpretations I have reviewed the lab results: Yes - RAD Interpretation Radiology Orders: 07/13/18 22:19 TESTES DUPLEX COMPLETE [US] Stat Metal Flooring Installer: Radiologist - Thomasibcarlton Statement The provider has reviewed the documentation as recorded by the Scribe Pamela Ortiz Provider Scribe Attestation: All medical record entries made by the Scribe were at my direction and personally dictated by me. I have reviewed the chart and agree that the record accurately reflects my personal performance of the history, physical exam, medical decision making, and the department course for this patient. I have also personally directed, reviewed, and agree with the discharge instructions and disposition. Disposition/Present on Arrival - Present on Arrival Any Indicators Present on Arrival: No History of DVT/PE: No History of Uncontrolled Diabetes: Yes Urinary Catheter: No History of Decub. Ulcer: No History Surgical Site Infection Following: None - Disposition Have Diagnosis and Disposition been Completed?: Yes Diagnosis: Cellulitis of scrotum, Cellulitis of abdominal wall Disposition: HOSPITALIZED Disposition Time: 01:39 Patient Problems: Current Active Problems Problem Status Onset Cellulitis of abdominal wall Acute Cellulitis of scrotum Acute Condition: STABLE Discharge Instructions (ExitCare): Cellulitis (ED) Forms: Zumigo (Syriac)
[2018-07-13 22:58] LABS: ALB/GLOB RATIO 1.1 (1.1-1.8); ALT/SGPT 12 U/L (7-56); AST/SGOT 22 U/L (17-59); BLOOD UREA NITROGEN 17 mg/dL (7-21); CALCIUM 9.2 mg/dL (8.4-10.5); GFR NON-AFRICAN AMERICAN > 60
[2018-07-13 23:07] LABS: INR 1.07; PARTIAL THROMBOPLASTIN TIME 36.7 Seconds (26.9-38.3); PROTHROMBIN TIME 11.9 SECONDS (9.4-12.5)
[2018-07-14] MEDS ORDERED: Piperacillin/Tazobact 3.375 gm 100 ML IV STA (01:35)
[2018-07-14] MEDS ORDERED: Vancomycin 1gm in NS 250ml 1 GM/250 ML BAG IVPB STA (01:38)
[2018-07-14] MEDS ORDERED: Dextrose 50% SYRINGE Inj (50 ml) IV PRN (02:11)
[2018-07-14] MEDS: Sodium Chloride 0.9% 1,000 ML IV SCH ×2 (02:20→17:41)
--- NOTE | 2018-07-14 02:28 | CP.PCM.HP ---
<Keo Crenshaw - Last Filed: 07/14/18 02:47> History of Present Illness - History of Present Illness History of Present Illness: Keo Crenshaw DO, PGY-1 Hospitalist Admission History and Physical for Dr. Mae CC: worsening scrotal redness/pain HPI: Patient is a 58 year old male with PMH of CAD (s/p PCI on DAPT), DM2 (last A1c 11.4), normal pressure hydrocephalus (s/p MOBILE [employer]GE [employer] shunt), BPH, and schizophrenia who presents for concern of worsening scrotal redness/pain for the past week. He states that he first noticed redness under his abdominal folds about a week ago and now it has spread to the scrotum. He states he has been applying steroid cream to the area without relief. He states the scrotal swelling has been going on for the past month but has started to become painful the past few days. He otherwise denies fever/chills, CP, SOB, ARELLANO, vision changes, abd pain/nausea /vomiting, or urinary complaints. 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 Present on Admission - Present on Admission Any Indicators Present on Admission: Yes History of DVT/PE: No History of Uncontrolled Diabetes: Yes Urinary Catheter: No Decubitus Ulcer Present: No Review of Systems - Constitutional Constitutional: absent: Chills, Fever, Headache, Night Sweats - EENT Eyes: absent: Blurred Vision, Change in Vision - Cardiovascular Cardiovascular: absent: Chest Pain, Chest Pain with Activity, Dyspnea, Dyspnea on Exertion, Orthopnea, Palpitations, Paroxysmal Nocturnal Dyspnea - Respiratory Respiratory: absent: Cough, Dyspnea - Gastrointestinal Gastrointestinal: absent: Abdominal Pain, Nausea, Vomiting - Genitourinary Genitourinary: absent: Change in Urinary Stream, Difficulty Urinating - Reproductive: Male Reproductive:Male: As Per HPI - Neurological Neurological: As Per HPI - Psychiatric Psychiatric: As Per HPI Past Patient History - Infectious Disease Hx of Infectious Diseases: None - Tetanus Immunizations Tetanus Immunization: Unknown - Past Medical History & Family History Past Medical History?: Yes - Past Social History Smoking Status: Former Smoker - CARDIAC Hx Hypertension: Yes - PULMONARY Hx Chronic Obstructive Pulmonary Disease (COPD): Yes Hx Sleep Apnea: Yes (on bipap) - NEUROLOGICAL HX Cerebrovascular Accident: Yes - HEENT Hx HEENT Problems: No - RENAL Hx Chronic Kidney Disease: No - ENDOCRINE/METABOLIC Hx Diabetes Mellitus Type 2: Yes - HEMATOLOGICAL/ONCOLOGICAL Hx Blood Disorders: Yes (blood transfusion) - INTEGUMENTARY Hx Dermatological Problems: No - MUSCULOSKELETAL/RHEUMATOLOGICAL Hx Falls: Yes - GASTROINTESTINAL Hx Gastrointestinal Disorders: Yes - GENITOURINARY/GYNECOLOGICAL Hx Prostate Problems: Yes - PSYCHIATRIC Hx Anxiety: Yes Hx Bipolar Disorder: Yes Hx Depression: Yes Hx Hallucinations: Yes Hx Schizophrenia: Yes Hx Substance Use: No - SURGICAL HISTORY Hx Appendectomy: Yes Hx Cardiac Catheterization: Yes (angioplasty 7 stents) Hx Coronary Stent: Yes - ANESTHESIA Hx Anesthesia: Yes Hx Anesthesia Reactions: No Hx Malignant Hyperthermia: No Meds Allergies/Adverse Reactions: Allergies Allergy/AdvReac Type Severity Reaction Status Date / Time FISH Allergy Mild ITCHING Verified 07/13/18 22:15 shellfish derived Allergy ANAPHYLAXIS Verified 07/13/18 22:15 Physical Exam - Constitutional Appears: No Acute Distress - Head Exam Head Exam: ATRAUMATIC, NORMOCEPHALIC - Eye Exam Eye Exam: EOMI, PERRL - ENT Exam ENT Exam: Mucous Membranes Moist - Neck Exam Neck exam: Positive for: Full Rom, Normal Inspection - Respiratory Exam Respiratory Exam: Clear to Auscultation Bilateral, NORMAL BREATHING PATTERN. absent: Accessory Muscle Use, Rales, Rhonchi, Wheezes, Respiratory Distress - Cardiovascular Exam Cardiovascular Exam: REGULAR RHYTHM, RRR, +S1, +S2. absent: Diastolic murmur, Gallop, Rubs, Systolic Murmur - GI/Abdominal Exam GI & Abdominal Exam: Normal Bowel Sounds, Soft. absent: Guarding, Rebound, Tenderness - Exam Exam: Scrotal Swelling External exam: Erythema Additional comments: Lower abdominal folds have diffuse erythema and is warm to palpation, consistent with cellulitis, testes are swollen b/l consistent with hydroceles - Back Exam Back exam: NORMAL INSPECTION - Neurological Exam Neurological exam: Alert, Oriented x3 - Psychiatric Exam Psychiatric exam: Normal Affect, Normal Mood - Skin Skin Exam: Dry, Intact, Warm Results - Vital Signs Recent Vital Signs: Last Vital Signs Temp 99.1 F 07/13/18 22:15 Pulse 99 H 07/13/18 22:15 Resp 18 07/13/18 22:15 BP 142/73 07/13/18 22:15 Pulse Ox 100 07/13/18 22:15 - Labs Result Diagrams: 07/13/18 22:30 07/13/18 22:30 Labs: Laboratory Results - last 24 hr 07/13/18 07/13/18 07/13/18 22:30 22:30 22:30 WBC 8.5 RBC 4.64 Hgb 14.6 Hct 45.0 MCV 97.0 MCH 31.5 MCHC 32.4 RDW 13.3 Plt Count 174 MPV 13.2 H PT 11.9 INR 1.07 APTT 36.7 Sodium 139 Potassium 4.0 Chloride 103 Carbon Dioxide 27 Anion Gap 13 BUN 17 Creatinine 1.0 Est GFR ( Amer) > 60 Est GFR (Non-Af Amer) > 60 Random Glucose 197 H Calcium 9.2 Total Bilirubin 0.3 AST 22 ALT 12 Alkaline Phosphatase 72 Total Protein 7.5 Albumin 4.0 Globulin 3.5 Albumin/Globulin Ratio 1.1 Assessment & Plan - Assessment and Plan (Free Text) Assessment: 58 yo M with PMH of CAD (s/p PCI on DAPT), DM2 (last A1c 11.4), normal pressure hydrocephalus (s/p MOBILE LOUNGE [employer]IVER shunt), BPH, and schizophrenia admitted for management of lower abdominal/scrotal cellulitis. Plan: Lower abdominal/scrotal cellulitis Single doses of vanc/zosyn given in ED, continue morning dose Patient is afebrile, without leukocytosis Testes duplex preliminary read negative for torsion, b/l hydroceles seen B/l inguinal hernias visualized on CTAP ID consult placed, all recs appreciated CAD S/p PCI Continue DAPT, imdur, lisinopril, lopressor F/u lipid panel DM2 ISS while admitted F/u A1c, lipid panel results BPH Continue flomax NPH s/p MOBILE LOUNGE [employer]IVER shunt No active issues, continue home meds Schizophrenia Continue home meds DVT/GI PPX: Lovenox/protonix Full Code HHD Monitor on med/surg Patient seen, examined with, and plan discussed with my attending Dr. Tu Crenshaw D.O. IM Resident PGY-1 <Mary Lou Mae - Last Filed: 07/14/18 05:43> Results - Vital Signs Recent Vital Signs: Last Vital Signs Temp 98.4 F 07/14/18 03:39 Pulse 103 H 07/14/18 03:39 Resp 20 07/14/18 03:39 BP 156/85 H 07/14/18 03:39 Pulse Ox 94 L 07/14/18 03:39 - Labs Result Diagrams: 07/13/18 22:30 07/13/18 22:30 Labs: Laboratory Results - last 24 hr 07/13/18 07/13/18 07/13/18 22:30 22:30 22:30 WBC 8.5 RBC 4.64 Hgb 14.6 Hct 45.0 MCV 97.0 MCH 31.5 MCHC 32.4 RDW 13.3 Plt Count 174 MPV 13.2 H PT 11.9 INR 1.07 APTT 36.7 Sodium 139 Potassium 4.0 Chloride 103 Carbon Dioxide 27 Anion Gap 13 BUN 17 Creatinine 1.0 Est GFR ( Amer) > 60 Est GFR (Non-Af Amer) > 60 Random Glucose 197 H Calcium 9.2 Total Bilirubin 0.3 AST 22 ALT 12 Alkaline Phosphatase 72 Total Protein 7.5 Albumin 4.0 Globulin 3.5 Albumin/Globulin Ratio 1.1 Urine Color Urine Appearance Urine pH Ur Specific [place] Urine Protein Urine Glucose (UA) Urine Ketones Urine Blood Urine Nitrate Urine Bilirubin Urine Urobilinogen Ur Leukocyte Esterase Urine RBC Urine WBC Ur Epithelial Cells Urine Bacteria 07/14/18 02:00 WBC RBC Hgb Hct MCV MCH MCHC RDW Plt Count MPV PT INR APTT Sodium Potassium Chloride Carbon Dioxide Anion Gap BUN Creatinine Est GFR ( Amer) Est GFR (Non-Af Amer) Random Glucose Calcium Total Bilirubin AST ALT Alkaline Phosphatase Total Protein Albumin Globulin Albumin/Globulin Ratio Urine Color Yellow Urine Appearance Clear Urine pH 6.0 Ur Specific [place] 1.025 Urine Protein 30 H Urine Glucose (UA) Negative Urine Ketones Negative Urine Blood Negative Urine Nitrate Negative Urine Bilirubin Negative Urine Urobilinogen 0.2 Ur Leukocyte Esterase Moderate H Urine RBC 0 - 2 Urine WBC 5 - 10 H Ur Epithelial Cells 1 - 3 Urine Bacteria Occ Attending/Attestation - Attestation I have personally seen and examined this patient.: Yes I have fully participated in the care of the patient.: Yes I have reviewed all pertinent clinical information: Yes Notes (Text): 07/14/18 05:42 Patient was seen when he was in bed # 9 in the ER. Medical record was reviewed. Agree with history, physical examination, assessment and plan.
[2018-07-14 02:42] LABS: URINE BILIRUBIN NEGATIVE (NEGATIVE); URINE BLOOD NEGATIVE (NEGATIVE); URINE GLUCOSE (UA) NEGATIVE (NEGATIVE); URINE LEUKOCYTE ESTERASE MODERATE Leu/uL (NEGATIVE); URINE PROTEIN 30 mg/dL (<30 mg/dL); URINE UROBILINOGEN 0.2 E.U./dL (<1 E.U./dL)
[2018-07-14 02:43] LABS: URINE APPEARANCE CLEAR (CLEAR); URINE COLOR YELLOW (YELLOW)
[2018-07-14 03:12] LABS: URINE BACTERIA OCC /hpf; URINE RBC 0 - 2 /hpf (0-2)
--- NOTE | 2018-07-14 05:33 | CP.PCM.CON ---
History of Present Illness - History of Present Illness History of Present Illness: General Surgery Consult Note for Dr. Vila, covering for Dr. 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 Patient states he has had this ongoing rash for almost a year however recently the rash has spread and become painful. Patient had been applying steroid cream which has not provided relief. He denies any difficulty with urination or bowel movements. No other alleviating or aggravating factors. Patient had one episode of emesis a week ago. Denies any recent nausea, vomiting, fever, chills, shortness of breath, chest pain, dizziness, or urinary symptoms. PMH: See above PSH: RIH repair, Appendectomy, PCI, WRAPPER REWINDER Shunt FH: Mental illness SH: Smoked 1PPD and drank alcohol, quit both 10 years ago. Denies illicit drug use. Lives with girlfriend. ALL: Fish Meds: See MAR Review of Systems - Constitutional Constitutional: absent: Chills, Fever, Weight Loss, Weakness - EENT Eyes: absent: Blurred Vision, Change in Vision Nose/Mouth/Throat: absent: Nasal Congestion, Nasal Discharge - Cardiovascular Cardiovascular: absent: Chest Pain, Dyspnea - Respiratory Respiratory: absent: Cough, Dyspnea - Gastrointestinal Gastrointestinal: absent: Abdominal Pain, Bloating, Diarrhea, Hematochezia, Loose Stools, Nausea, Vomiting - Genitourinary Genitourinary: absent: Difficulty Urinating, Dysuria, Hematuria - Musculoskeletal Musculoskeletal: absent: Back Pain, Neck Pain - Integumentary Integumentary: Changing Lesions, Erythema, Non-Healing Lesions, Pruritus, Rash, Swelling. absent: Skin Ulcer - Neurological Neurological: absent: Confusion, Dizziness - Psychiatric Psychiatric: absent: Anxiety, Depression Past Patient History - Infectious Disease Hx of Infectious Diseases: None - Tetanus Immunizations Tetanus Immunization: Unknown - Past Medical History & Family History Past Medical History?: Yes - Past Social History Smoking Status: Former Smoker - CARDIAC Hx Hypertension: Yes - PULMONARY Hx Chronic Obstructive Pulmonary Disease (COPD): Yes Hx Sleep Apnea: Yes (on bipap) - NEUROLOGICAL HX Cerebrovascular Accident: Yes - HEENT Hx HEENT Problems: No - RENAL Hx Chronic Kidney Disease: No - ENDOCRINE/METABOLIC Hx Diabetes Mellitus Type 2: Yes - HEMATOLOGICAL/ONCOLOGICAL Hx Blood Disorders: Yes (blood transfusion) - INTEGUMENTARY Hx Dermatological Problems: No - MUSCULOSKELETAL/RHEUMATOLOGICAL Hx Falls: Yes - GASTROINTESTINAL Hx Gastrointestinal Disorders: Yes - GENITOURINARY/GYNECOLOGICAL Hx Prostate Problems: Yes - PSYCHIATRIC Hx Anxiety: Yes Hx Bipolar Disorder: Yes Hx Depression: Yes Hx Hallucinations: Yes Hx Schizophrenia: Yes - SURGICAL HISTORY Hx Appendectomy: Yes Hx Cardiac Catheterization: Yes (angioplasty 7 stents) Hx Coronary Stent: Yes - ANESTHESIA Hx Anesthesia: Yes Hx Anesthesia Reactions: No Hx Malignant Hyperthermia: No Meds Allergies/Adverse Reactions: Allergies Allergy/AdvReac Type Severity Reaction Status Date / Time FISH Allergy Mild ITCHING Verified 07/13/18 22:15 shellfish derived Allergy ANAPHYLAXIS Verified 07/13/18 22:15 - Medications Medications: Current Medications Acetaminophen (Tylenol 325mg Tab) 650 mg PO Q6H PRN PRN Reason: Pain, Mild (1-3) Aspirin (Aspirin) 325 mg PO DAILY [facility] Atorvastatin Calcium (Lipitor) 20 mg PO DIN [facility] Clonazepam (Klonopin) 0.5 mg PO HS [facility]; Protocol Clopidogrel Bisulfate (Plavix) 75 mg PO DAILY [facility] Dextrose (Dextrose 50% Inj) 0 ml IV STAT PRN; Protocol PRN Reason: Hypoglycemia Protocol Duloxetine HCl (Cymbalta) 60 mg PO DAILY [facility] Enoxaparin Sodium (Lovenox) 40 mg SC DAILY [facility]; Protocol Famotidine (Pepcid) 40 mg PO HS [facility] Furosemide (Lasix) 40 mg PO DAILY [facility] Dextrose (Dextrose 5% In Water 1000 Ml) 1,000 mls @ 0 mls/hr IV .Q0M PRN; Protocol PRN Reason: Hypoglycemia Protocol Sodium Chloride (Sodium Chloride 0.9%) 1,000 mls @ 125 mls/hr IV .Q8H [facility] Last Admin: 07/14/18 02:20 Dose: 125 mls/hr Vancomycin HCl (Vancomycin 1gm) 1 gm in 250 mls @ 167 mls/hr IVPB DAILY [facility]; Protocol Piperacillin Sod/Tazobactam Sod (Zosyn 3.375 In Ns 100ml) 100 mls @ 25 mls/hr IVPB Q12 [facility]; Protocol Stop: 07/14/18 13:59 Insulin Detemir (Levemir) 14 unit SC Q12 [facility] Insulin Human Regular (Humulin R Med) 0 units SC ACHS [facility]; Protocol Isosorbide Mononitrate (Imdur) 60 mg PO DAILY [facility] Lisinopril (Zestril) 10 mg PO DIN [facility] Metoprolol Tartrate (Lopressor) 50 mg PO BID [facility] Nystatin (Mycostatin Cream) 0 ea TOP TID [facility] Potassium Chloride (K-Dur 20 Meq Er Tab) 20 meq PO BRK [facility] Quetiapine Fumarate (Seroquel) 100 mg PO HS [facility]; Protocol Tamsulosin HCl (Flomax) 0.4 mg PO HS [facility] Ziprasidone (Geodon Cap) 60 mg PO BID [facility]; Protocol Physical Exam - Constitutional Appears: Non-toxic, No Acute Distress - Head Exam Head Exam: ATRAUMATIC, NORMAL INSPECTION, NORMOCEPHALIC - Eye Exam Eye Exam: EOMI - ENT Exam ENT Exam: Mucous Membranes Dry - Respiratory Exam Respiratory Exam: NORMAL BREATHING PATTERN. absent: Wheezes, Respiratory Distress - Cardiovascular Exam Cardiovascular Exam: Tachycardia, REGULAR RHYTHM - GI/Abdominal Exam GI & Abdominal Exam: Normal Bowel Sounds, Soft. absent: Tenderness - Exam Exam: Scrotal Swelling, Testicular Tenderness External exam: Erythema, Lesions Additional comments: Erythematous rash with peripheral excoriations between abdominal and inguinal skin folds and underlying scrotum Bilateral inguinal and scrotal region tender to palpation No discharge or purulence, no necrosis or gangrenous areas visualized Palpable bilateral inguinal hernias - Extremities Exam Extremities exam: Positive for: pedal pulses present - Neurological Exam Neurological exam: Alert, Oriented x3 - Psychiatric Exam Psychiatric exam: Flat Affect - Skin Skin Exam: Erythema, Rash Results - Vital Signs Recent Vital Signs: Last Vital Signs Temp 98.4 F 07/14/18 03:39 Pulse 103 H 07/14/18 03:39 Resp 20 07/14/18 03:39 BP 156/85 H 07/14/18 03:39 Pulse Ox 94 L 07/14/18 03:39 - Labs Result Diagrams: 07/13/18 22:30 07/13/18 22:30 Labs: Laboratory Results - last 24 hr 07/13/18 07/13/18 07/13/18 22:30 22:30 22:30 WBC 8.5 RBC 4.64 Hgb 14.6 Hct 45.0 MCV 97.0 MCH 31.5 MCHC 32.4 RDW 13.3 Plt Count 174 MPV 13.2 H PT 11.9 INR 1.07 APTT 36.7 Sodium 139 Potassium 4.0 Chloride 103 Carbon Dioxide 27 Anion Gap 13 BUN 17 Creatinine 1.0 Est GFR ( Amer) > 60 Est GFR (Non-Af Amer) > 60 Random Glucose 197 H Calcium 9.2 Total Bilirubin 0.3 AST 22 ALT 12 Alkaline Phosphatase 72 Total Protein 7.5 Albumin 4.0 Globulin 3.5 Albumin/Globulin Ratio 1.1 Urine Color Urine Appearance Urine pH Ur Specific [place] Urine Protein Urine Glucose (UA) Urine Ketones Urine Blood Urine Nitrate Urine Bilirubin Urine Urobilinogen Ur Leukocyte Esterase Urine RBC Urine WBC Ur Epithelial Cells Urine Bacteria 07/14/18 02:00 WBC RBC Hgb Hct MCV MCH MCHC RDW Plt Count MPV PT INR APTT Sodium Potassium Chloride Carbon Dioxide Anion Gap BUN Creatinine Est GFR ( Amer) Est GFR (Non-Af Amer) Random Glucose Calcium Total Bilirubin AST ALT Alkaline Phosphatase Total Protein Albumin Globulin Albumin/Globulin Ratio Urine Color Yellow Urine Appearance Clear Urine pH 6.0 Ur Specific [place] 1.025 Urine Protein 30 H Urine Glucose (UA) Negative Urine Ketones Negative Urine Blood Negative Urine Nitrate Negative Urine Bilirubin Negative Urine Urobilinogen 0.2 Ur Leukocyte Esterase Moderate H Urine RBC 0 - 2 Urine WBC 5 - 10 H Ur Epithelial Cells 1 - 3 Urine Bacteria Occ Assessment & Plan - Assessment and Plan (Free Text) Assessment: 58M, w/ scrotal rash 2/2 cellulitis bacterial vs fungal Plan: - CTAP: Right and left fat containing inguinal hernias, no signs of obstruction or incarceration, no free air or signs of necrosis - Testicular US: Bilateral hydroceles, negative for torsion - Continue IV Abx - Diflucan 1 dose - Recommend topical ointment to cover for fungal etiology - Monitor vitals and hemodynamic stability - Pain control - Further recommendations per Dr. Julito Mann PGY1
[2018-07-14] MEDS ORDERED: Pantoprazole 40 mg EC Tab PO SCH (06:00)
[2018-07-14 06:37] LABS: BASO # 0.04 K/mm3 (0.0-2.0); BASO % 0.4 % (0.0-3.0); EOS # 0.2 (0.0-0.7); EOS % 2.5 % (1.5-5.0); HEMOGLOBIN 13.6 g/dL (14.0-18.0); LYMPH # 1.9 (1.2-3.4); LYMPH % 19.9 % (22.0-35.0); MEAN CELL VOLUME 97.7 fl (80.0-105.0); MEAN CORPUSCULAR HEMOGLOBIN 30.8 pg (25.0-35.0); MEAN CORPUSCULAR HGB CONC 31.5 g/dl (31.0-37.0); MEAN PLATELET VOLUME 13.4 fl (7.0-11.0); MONO # 0.8 (0.1-0.6); MONO % 8.6 % (1.0-6.0); RBC 4.42 10^6/uL (3.5-6.1); RED CELL DISTRIBUTION WIDTH 13.3 % (11.5-14.5); WHITE BLOOD COUNT 9.3 10^3/uL (4.5-11.0)
[2018-07-14 06:54] LABS: ALB/GLOB RATIO 1.1 (1.1-1.8); ALBUMIN 3.6 g/dL (3.0-4.8); ALT/SGPT 11 U/L (7-56); AST/SGOT 19 U/L (17-59); BLOOD UREA NITROGEN 17 mg/dL (7-21); CALCIUM 8.8 mg/dL (8.4-10.5); GFR NON-AFRICAN AMERICAN > 60; HDL CHOLESTEROL 21 mg/dL (29-60)
[2018-07-14 07:04] LABS: LDL CHOLESTEROL 39 mg/dL (0-129)
[2018-07-14] MEDS: Insulin Reg-MEDIUM-Coverage SC SCH ×4 (08:55→21:33)
--- NOTE | 2018-07-14 09:21 | US ---
Date of service: 07/13/2018 HISTORY: scrotal /testicular swelling TECHNIQUE: Realtime sonography through the scrotum with color and doppler flow. COMPARISON: None Available. FINDINGS: RIGHT TESTICLE: Measures 4.5 x 2.1 x 2.5 cm. Normal echotexture and flow. RIGHT EPIDIDYMIS: Epididymal head measures 0.7 x 0.7 x 1.0 cm. Grossly unremarkable appearance with normal flow. LEFT TESTICLE: Measures 3.9 x 2.0 x 3.0 cm. Normal echotexture and flow. LEFT EPIDIDYMIS: Epididymal head measures 0.9 x 0.8 x 1.0 cm. Grossly unremarkable appearance with normal flow. HYDROCELE: Small bilateral hydroceles. VARICOCELE: None. OTHER FINDINGS: There is mild subcutaneous edema. IMPRESSION: No evidence for testicular mass, torsion or epididymo-orchitis. Small bilateral hydroceles.
[2018-07-14] MEDS ORDERED: Piperacillin/Tazobact 3.375 gm 100 ML IVPB SCH (10:00)
[2018-07-14] MEDS: Insulin Detemir 100 units/ml Vial (Levemir) SC SCH ×2 (10:08→22:00)
[2018-07-14] MEDS: Enoxaparin 40 mg Syringe SC SCH (10:08)
[2018-07-14] MEDS: Vancomycin 1gm in NS 250ml 1 GM/250 ML BAG IVPB SCH (10:12)
[2018-07-14] MEDS: Potassium Chloride 20 mEq ER Tab PO SCH (10:15)
--- NOTE | 2018-07-14 10:37 | CT ---
Date of service: 07/13/2018 PROCEDURE: CT Abdomen and Pelvis without intravenous contrast HISTORY: Lower abdominal pain COMPARISON: None. TECHNIQUE: CT scan of the abdomen and pelvis was performed without administration of intravenous contrast. Oral contrast was not administered. Coronal and sagittal reformatted images were obtained. Radiation dose: Total exam DLP = 2055.15 mGy-cm. This CT exam was performed using one or more of the following dose reduction techniques: Automated exposure control, adjustment of the mA and/or kV according to patient size, and/or use of iterative reconstruction technique. FINDINGS: LOWER THORAX: The visualized lungs are clear. LIVER: Normal in size. There are nonspecific coarse calcifications in the right posterior hepatic lobe. No gross lesion or ductal dilatation. GALLBLADDER AND BILE DUCTS: There are calcified gallstones. No common bile duct dilatation. PANCREAS: Normal in size. No gross lesion or ductal dilatation. SPLEEN: Normal in size. ADRENALS: Normal in size. No discrete nodule. KIDNEYS AND URETERS: Both kidneys are normal in size. No hydronephrosis or nephrolithiasis. Nonspecific perinephric fat stranding. VASCULATURE: Normal in caliber. No aortic aneurysm. No aortic atherosclerotic calcification or mural plaque present. BOWEL: Evaluation of the bowel is limited in the absence of oral contrast. The small bowel loops are normal in caliber. There is scattered colonic diverticulosis without CT evidence for acute diverticulitis. There is moderate amount of stool in the colon. No bowel dilatation or wall thickening. No bowel obstruction. APPENDIX: Normal appendix. PERITONEUM: No free fluid. No free air. LYMPH NODES: No enlarged lymph nodes. BLADDER: Well distended and normal in appearance. REPRODUCTIVE: The prostate gland is normal in size. BONES: No acute fracture. Within normal limits for the patient's age. OTHER FINDINGS: There is a small right fat containing inguinal scrotal hernia. There is a large left fat containing inguinal scrotal hernia. There is a small fat containing umbilical hernia. IMPRESSION: No acute abdominal or pelvic abnormality. Small right and large left fat containing inguinal scrotal hernia. Small fat containing umbilical Scattered colonic diverticulosis without CT evidence for acute diverticulitis. Cholelithiasis. A preliminary report was provided by [employer].
[2018-07-14] MEDS: Nystatin 100,000 Units/gm Cream(15 gm) TOP SCH ×3 (11:35→17:25)
--- NOTE | 2018-07-14 18:58 | CP.PCM.CON ---
History of Present Illness - History of Present Illness History of Present Illness: Infectious Disease Consultation: July 14, 2018 58 yo male with PMHx of CAD, DM type 2, NPH, BPH, and Schizophrenia presented with 1 week of worsening erythema and swelling of the scrotum. He states that he has had a scrotal rash for the past year. The patient was using a steroid cream without relief or improvement. PMHx: CAD, DM type 2, Normal Pressure Hydrocephalus, BPH, Schizophrenia PSHx: RIH repair, Appendectomy, PCI, [employer] Shunt Allergies: Fish, Shellfish Social Hx: Ex-smoker and EtOH use stopped 10 years ago. No illicit drug use Active Medications Acetaminophen (Tylenol 325mg Tab) 650 mg PO Q6H PRN PRN Reason: Pain, Mild (1-3) Aspirin (Aspirin) 325 mg PO DAILY [facility] Last Admin: 07/14/18 10:11 Dose: 325 mg Atorvastatin Calcium (Lipitor) 20 mg PO DIN [facility] Last Admin: 07/14/18 17:24 Dose: 20 mg Clonazepam (Klonopin) 0.5 mg PO HS [facility]; Protocol Clopidogrel Bisulfate (Plavix) 75 mg PO DAILY [facility] Last Admin: 07/14/18 10:11 Dose: 75 mg Dextrose (Dextrose 50% Inj) 0 ml IV STAT PRN; Protocol PRN Reason: Hypoglycemia Protocol Duloxetine HCl (Cymbalta) 60 mg PO DAILY [facility] Last Admin: 07/14/18 10:10 Dose: 60 mg Enoxaparin Sodium (Lovenox) 40 mg SC DAILY [facility]; Protocol Last Admin: 07/14/18 10:08 Dose: 40 mg Famotidine (Pepcid) 40 mg PO HS [facility] Fluconazole (Diflucan) 150 mg PO DAILY [facility]; Protocol Last Admin: 07/14/18 11:34 Dose: 150 mg Furosemide (Lasix) 40 mg PO DAILY [facility] Last Admin: 07/14/18 10:11 Dose: 40 mg Dextrose (Dextrose 5% In Water 1000 Ml) 1,000 mls @ 0 mls/hr IV .Q0M PRN; Protocol PRN Reason: Hypoglycemia Protocol Sodium Chloride (Sodium Chloride 0.9%) 1,000 mls @ 125 mls/hr IV .Q8H [facility] Last Admin: 07/14/18 17:41 Dose: 125 mls/hr Vancomycin HCl (Vancomycin 1gm) 1 gm in 250 mls @ 167 mls/hr IVPB DAILY [facility]; Protocol Last Admin: 07/14/18 10:12 Dose: 167 mls/hr Insulin Detemir (Levemir) 14 unit SC Q12 [facility] Last Admin: 07/14/18 10:08 Dose: 14 unit Insulin Human Regular (Humulin R Med) 0 units SC ACHS [facility]; Protocol Last Admin: 07/14/18 17:24 Dose: 5 unit Isosorbide Mononitrate (Imdur) 60 mg PO DAILY [facility] Last Admin: 07/14/18 10:10 Dose: 60 mg Lisinopril (Zestril) 10 mg PO DIN [facility] Last Admin: 07/14/18 17:23 Dose: 10 mg Metoprolol Tartrate (Lopressor) 50 mg PO BID [facility] Last Admin: 07/14/18 17:24 Dose: 50 mg Nystatin (Mycostatin Cream) 0 ea TOP TID [facility] Last Admin: 07/14/18 17:25 Dose: 1 applic Potassium Chloride (K-Dur 20 Meq Er Tab) 20 meq PO BRK [facility] Last Admin: 07/14/18 10:15 Dose: 20 meq Quetiapine Fumarate (Seroquel) 100 mg PO HS [facility]; Protocol Tamsulosin HCl (Flomax) 0.4 mg PO HS [facility] Ziprasidone (Geodon Cap) 60 mg PO BID [facility]; Protocol Last Admin: 07/14/18 17:23 Dose: 60 mg Family Hx: mental illness ROS: No fever, chills, nause, vomiting, diarrhea, headaches, dizziness, chest pain, abdominal pain, melena, hematuria, hematemesis, hematochezia. Past Patient History - Infectious Disease Hx of Infectious Diseases: None - Tetanus Immunizations Tetanus Immunization: Unknown - Past Medical History & Family History Past Medical History?: Yes - Past Social History Smoking Status: Former Smoker - CARDIAC Hx Hypertension: Yes - PULMONARY Hx Chronic Obstructive Pulmonary Disease (COPD): Yes - NEUROLOGICAL HX Cerebrovascular Accident: Yes - HEENT Hx HEENT Problems: No - RENAL Hx Chronic Kidney Disease: No - ENDOCRINE/METABOLIC Hx Diabetes Mellitus Type 2: Yes - HEMATOLOGICAL/ONCOLOGICAL Hx Blood Disorders: Yes (blood transfusion) - INTEGUMENTARY Hx Dermatological Problems: No - MUSCULOSKELETAL/RHEUMATOLOGICAL Hx Falls: Yes - GASTROINTESTINAL Hx Gastrointestinal Disorders: Yes - GENITOURINARY/GYNECOLOGICAL Hx Prostate Problems: Yes - PSYCHIATRIC Hx Anxiety: Yes Hx Bipolar Disorder: Yes Hx Depression: Yes Hx Hallucinations: Yes Hx Schizophrenia: Yes - SURGICAL HISTORY Hx Appendectomy: Yes Hx Cardiac Catheterization: Yes (angioplasty 7 stents) Hx Coronary Stent: Yes - ANESTHESIA Hx Anesthesia: Yes Hx Anesthesia Reactions: No Hx Malignant Hyperthermia: No Meds Allergies/Adverse Reactions: Allergies Allergy/AdvReac Type Severity Reaction Status Date / Time FISH Allergy Mild ITCHING Verified 07/13/18 22:15 shellfish derived Allergy ANAPHYLAXIS Verified 07/13/18 22:15 - Medications Medications: Current Medications Acetaminophen (Tylenol 325mg Tab) 650 mg PO Q6H PRN PRN Reason: Pain, Mild (1-3) Aspirin (Aspirin) 325 mg PO DAILY [facility] Last Admin: 07/14/18 10:11 Dose: 325 mg Atorvastatin Calcium (Lipitor) 20 mg PO DIN [facility] Last Admin: 07/14/18 17:24 Dose: 20 mg Clonazepam (Klonopin) 0.5 mg PO HS [facility]; Protocol Clopidogrel Bisulfate (Plavix) 75 mg PO DAILY [facility] Last Admin: 07/14/18 10:11 Dose: 75 mg Dextrose (Dextrose 50% Inj) 0 ml IV STAT PRN; Protocol PRN Reason: Hypoglycemia Protocol Duloxetine HCl (Cymbalta) 60 mg PO DAILY [facility] Last Admin: 07/14/18 10:10 Dose: 60 mg Enoxaparin Sodium (Lovenox) 40 mg SC DAILY [facility]; Protocol Last Admin: 07/14/18 10:08 Dose: 40 mg Famotidine (Pepcid) 40 mg PO HS [facility] Fluconazole (Diflucan) 150 mg PO DAILY [facility]; Protocol Last Admin: 07/14/18 11:34 Dose: 150 mg Furosemide (Lasix) 40 mg PO DAILY [facility] Last Admin: 07/14/18 10:11 Dose: 40 mg Dextrose (Dextrose 5% In Water 1000 Ml) 1,000 mls @ 0 mls/hr IV .Q0M PRN; Protocol PRN Reason: Hypoglycemia Protocol Sodium Chloride (Sodium Chloride 0.9%) 1,000 mls @ 125 mls/hr IV .Q8H [facility] Last Admin: 07/14/18 17:41 Dose: 125 mls/hr Vancomycin HCl (Vancomycin 1gm) 1 gm in 250 mls @ 167 mls/hr IVPB DAILY [facility]; Protocol Last Admin: 07/14/18 10:12 Dose: 167 mls/hr Insulin Detemir (Levemir) 14 unit SC Q12 [facility] Last Admin: 07/14/18 10:08 Dose: 14 unit Insulin Human Regular (Humulin R Med) 0 units SC ACHS [facility]; Protocol Last Admin: 07/14/18 17:24 Dose: 5 unit Isosorbide Mononitrate (Imdur) 60 mg PO DAILY [facility] Last Admin: 07/14/18 10:10 Dose: 60 mg Lisinopril (Zestril) 10 mg PO DIN [facility] Last Admin: 07/14/18 17:23 Dose: 10 mg Metoprolol Tartrate (Lopressor) 50 mg PO BID [facility] Last Admin: 07/14/18 17:24 Dose: 50 mg Nystatin (Mycostatin Cream) 0 ea TOP TID [facility] Last Admin: 07/14/18 17:25 Dose: 1 applic Potassium Chloride (K-Dur 20 Meq Er Tab) 20 meq PO BRK [facility] Last Admin: 07/14/18 10:15 Dose: 20 meq Quetiapine Fumarate (Seroquel) 100 mg PO HS [facility]; Protocol Tamsulosin HCl (Flomax) 0.4 mg PO HS [facility] Ziprasidone (Geodon Cap) 60 mg PO BID [facility]; Protocol Last Admin: 07/14/18 17:23 Dose: 60 mg Physical Exam - Constitutional Appears: Non-toxic, No Acute Distress - Head Exam Head Exam: ATRAUMATIC, NORMOCEPHALIC - Eye Exam Eye Exam: EOMI, PERRL Pupil Exam: NORMAL ACCOMODATION, PERRL - ENT Exam ENT Exam: Mucous Membranes Moist, Normal External Ear Exam, TM's Normal Bilaterally - Neck Exam Neck exam: Positive for: Full Rom, Normal Inspection - Respiratory Exam Respiratory Exam: Clear to Auscultation Bilateral, NORMAL BREATHING PATTERN. absent: Rales, Rhonchi, Wheezes - Cardiovascular Exam Cardiovascular Exam: Tachycardia, RRR, +S1, +S2 - GI/Abdominal Exam GI & Abdominal Exam: Normal Bowel Sounds, Soft. absent: Distended, Tenderness - Exam Exam: Scrotal Swelling, Testicular Tenderness External exam: Erythema, Lesions Additional comments: Erythematous rash with peripheral excoriations between abdominal and inguinal skin folds and underlying scrotum Bilateral inguinal and scrotal region tender to palpation No discharge or purulence, no necrosis or gangrenous areas visualized. Areas of dry skin. Palpable bilateral inguinal hernias - Extremities Exam Extremities exam: Negative for: joint swelling, pedal edema - Neurological Exam Neurological exam: Alert, CN II-XII Intact, Oriented x3 - Psychiatric Exam Psychiatric exam: Flat Affect - Skin Additional comments: As above Results - Vital Signs Recent Vital Signs: Last Vital Signs Temp 97.9 F 07/14/18 18:24 Pulse 93 H 07/14/18 18:24 Resp 18 07/14/18 18:24 BP 148/88 07/14/18 18:24 Pulse Ox 93 L 07/14/18 18:24 - Labs Result Diagrams: 07/14/18 06:00 07/14/18 06:00 Labs: Laboratory Results - last 24 hr 07/13/18 07/13/18 07/13/18 22:30 22:30 22:30 WBC 8.5 RBC 4.64 Hgb 14.6 Hct 45.0 MCV 97.0 MCH 31.5 MCHC 32.4 RDW 13.3 Plt Count 174 MPV 13.2 H Neut % (Auto) Lymph % (Auto) [place] % (Auto) Eos % (Auto) Baso % (Auto) Lymph # (Auto) [place] # (Auto) Eos # (Auto) Baso # (Auto) Absolute Neuts (auto) PT 11.9 INR 1.07 APTT 36.7 Sodium 139 Potassium 4.0 Chloride 103 Carbon Dioxide 27 Anion Gap 13 BUN 17 Creatinine 1.0 Est GFR ( Amer) > 60 Est GFR (Non-Af Amer) > 60 POC Glucose (mg/dL) Random Glucose 197 H Hemoglobin A1c Calcium 9.2 Phosphorus Magnesium Total Bilirubin 0.3 AST 22 ALT 12 Alkaline Phosphatase 72 Total Protein 7.5 Albumin 4.0 Globulin 3.5 Albumin/Globulin Ratio 1.1 Triglycerides Cholesterol LDL Cholesterol Direct HDL Cholesterol Urine Color Urine Appearance Urine pH Ur Specific [place] Urine Protein Urine Glucose (UA) Urine Ketones Urine Blood Urine Nitrate Urine Bilirubin Urine Urobilinogen Ur Leukocyte Esterase Urine RBC Urine WBC Ur Epithelial Cells Urine Bacteria 07/14/18 07/14/18 07/14/18 02:00 06:00 06:00 WBC 9.3 RBC 4.42 Hgb 13.6 L Hct 43.2 MCV 97.7 MCH 30.8 MCHC 31.5 RDW 13.3 Plt Count 159 MPV 13.4 H Neut % (Auto) 68.6 H Lymph % (Auto) 19.9 L [place] % (Auto) 8.6 H Eos % (Auto) 2.5 Baso % (Auto) 0.4 Lymph # (Auto) 1.9 [place] # (Auto) 0.8 H Eos # (Auto) 0.2 Baso # (Auto) 0.04 Absolute Neuts (auto) 6.39 PT INR APTT Sodium 139 Potassium 3.7 Chloride 104 Carbon Dioxide 29 Anion Gap 10 BUN 17 Creatinine 1.1 Est GFR ( Amer) > 60 Est GFR (Non-Af Amer) > 60 POC Glucose (mg/dL) Random Glucose 144 H Hemoglobin A1c Calcium 8.8 Phosphorus 2.6 Magnesium 1.7 Total Bilirubin 0.2 AST 19 ALT 11 Alkaline Phosphatase 63 Total Protein 6.8 Albumin 3.6 Globulin 3.2 Albumin/Globulin Ratio 1.1 Triglycerides 128 Cholesterol 98 L LDL Cholesterol Direct 39 HDL Cholesterol 21 L Urine Color Yellow Urine Appearance Clear Urine pH 6.0 Ur Specific [place] 1.025 Urine Protein 30 H Urine Glucose (UA) Negative Urine Ketones Negative Urine Blood Negative Urine Nitrate Negative Urine Bilirubin Negative Urine Urobilinogen 0.2 Ur Leukocyte Esterase Moderate H Urine RBC 0 - 2 Urine WBC 5 - 10 H Ur Epithelial Cells 1 - 3 Urine Bacteria Occ 07/14/18 07/14/18 07/14/18 06:00 07:23 11:26 WBC RBC Hgb Hct MCV MCH MCHC RDW Plt Count MPV Neut % (Auto) Lymph % (Auto) [place] % (Auto) Eos % (Auto) Baso % (Auto) Lymph # (Auto) [place] # (Auto) Eos # (Auto) Baso # (Auto) Absolute Neuts (auto) PT INR APTT Sodium Potassium Chloride Carbon Dioxide Anion Gap BUN Creatinine Est GFR ( Amer) Est GFR (Non-Af Amer) POC Glucose (mg/dL) 123 H 204 H Random Glucose Hemoglobin A1c 9.0 H D Calcium Phosphorus Magnesium Total Bilirubin AST ALT Alkaline Phosphatase Total Protein Albumin Globulin Albumin/Globulin Ratio Triglycerides Cholesterol LDL Cholesterol Direct HDL Cholesterol Urine Color Urine Appearance Urine pH Ur Specific [place] Urine Protein Urine Glucose (UA) Urine Ketones Urine Blood Urine Nitrate Urine Bilirubin Urine Urobilinogen Ur Leukocyte Esterase Urine RBC Urine WBC Ur Epithelial Cells Urine Bacteria 07/14/18 16:14 WBC RBC Hgb Hct MCV MCH MCHC RDW Plt Count MPV Neut % (Auto) Lymph % (Auto) [place] % (Auto) Eos % (Auto) Baso % (Auto) Lymph # (Auto) [place] # (Auto) Eos # (Auto) Baso # (Auto) Absolute Neuts (auto) PT INR APTT Sodium Potassium Chloride Carbon Dioxide Anion Gap BUN Creatinine Est GFR ( Amer) Est GFR (Non-Af Amer) POC Glucose (mg/dL) 270 H Random Glucose Hemoglobin A1c Calcium Phosphorus Magnesium Total Bilirubin AST ALT Alkaline Phosphatase Total Protein Albumin Globulin Albumin/Globulin Ratio Triglycerides Cholesterol LDL Cholesterol Direct HDL Cholesterol Urine Color Urine Appearance Urine pH Ur Specific [place] Urine Protein Urine Glucose (UA) Urine Ketones Urine Blood Urine Nitrate Urine Bilirubin Urine Urobilinogen Ur Leukocyte Esterase Urine RBC Urine WBC Ur Epithelial Cells Urine Bacteria Assessment & Plan - Assessment and Plan (Free Text) Assessment: 58 yo male with scrotal swelling and erythema. Testicular ultrasouns showing bilateral hydroceles but no torsion. Multiple medical issues including DM and HTN. Started on Zosyn and IV Vancomycin for antibiotic care. Monitor renal function. Poorly controlled diabetes. Monitor level of Vancomycin. Continue with Zosyn and IV Vancomycin. Local wound care. Supportive care. Thank you for allowing me to participate in the care of this patient, we will follow with you.
[2018-07-14] MEDS: Piperacillin/Tazobact 3.375 gm 100 ML IVPB SCH (21:28)
[2018-07-15] MEDS: Sodium Chloride 0.9% 1,000 ML IV SCH (05:16)
[2018-07-15] MEDS: Insulin Reg-MEDIUM-Coverage SC SCH ×4 (08:00→22:34)
[2018-07-15 08:19] LABS: BASO # 0.04 K/mm3 (0.0-2.0); BASO % 0.5 % (0.0-3.0); EOS # 0.3 (0.0-0.7); EOS % 3.6 % (1.5-5.0); HEMOGLOBIN 13.1 g/dL (14.0-18.0); LYMPH # 2.2 (1.2-3.4); LYMPH % 26.9 % (22.0-35.0); MEAN CELL VOLUME 97.7 fl (80.0-105.0); MEAN CORPUSCULAR HEMOGLOBIN 30.6 pg (25.0-35.0); MEAN CORPUSCULAR HGB CONC 31.3 g/dl (31.0-37.0); MEAN PLATELET VOLUME 13.3 fl (7.0-11.0); MONO # 0.6 (0.1-0.6); MONO % 7.7 % (1.0-6.0); RBC 4.28 10^6/uL (3.5-6.1); RED CELL DISTRIBUTION WIDTH 13.3 % (11.5-14.5); WHITE BLOOD COUNT 8.1 10^3/uL (4.5-11.0)
[2018-07-15 08:33] LABS: ALB/GLOB RATIO 1.1 (1.1-1.8); ALBUMIN 3.8 g/dL (3.0-4.8); ALT/SGPT 13 U/L (7-56); AST/SGOT 20 U/L (17-59); BLOOD UREA NITROGEN 16 mg/dL (7-21); CALCIUM 8.8 mg/dL (8.4-10.5); GFR NON-AFRICAN AMERICAN > 60
[2018-07-15] MEDS: Insulin Detemir 100 units/ml Vial (Levemir) SC SCH ×2 (09:34→22:44)
[2018-07-15] MEDS: Enoxaparin 40 mg Syringe SC SCH (09:34)
[2018-07-15] MEDS: Nystatin 100,000 Units/gm Cream(15 gm) TOP SCH ×3 (09:35→17:38)
[2018-07-15] MEDS: Vancomycin 1gm in NS 250ml 1 GM/250 ML BAG IVPB SCH (09:36)
[2018-07-15] MEDS: Potassium Chloride 20 mEq ER Tab PO SCH (09:36)
[2018-07-15] MEDS: Piperacillin/Tazobact 3.375 gm 100 ML IVPB SCH ×2 (10:27→22:43)
--- NOTE | 2018-07-15 12:22 | CP.PCM.PN ---
Subjective - Date & Time of Evaluation Date of Evaluation: 07/15/18 Time of Evaluation: 09:05 - Subjective Subjective: General surgery consult note for Dr. Vila covering for Dr. Doyle Patient seen and examined this am at bedsdide. states that irritation and itching has improved with nystatin powder. Pthient otherwise denies ARELLANO, SOB, CP< abdominal pain, scrotal pain, n/v, f/c, stool changes and any pain in his scrotum. Objective - Vital Signs/Intake and Output Vital Signs (last 24 hours): Temp Pulse Resp BP Pulse Ox 98.2 F 93 H 20 146/78 94 L 07/15/18 06:00 07/15/18 06:00 07/15/18 06:00 07/15/18 09:36 07/15/18 06:00 Intake and Output: 07/15/18 07/15/18 06:59 18:59 Intake Total 2405 Output Total 1701 Balance 704 - Medications Medications: Current Medications Acetaminophen (Tylenol 325mg Tab) 650 mg PO Q6H PRN PRN Reason: Pain, Mild (1-3) Aspirin (Aspirin) 325 mg PO DAILY [facility] Last Admin: 07/15/18 09:40 Dose: 325 mg Atorvastatin Calcium (Lipitor) 20 mg PO DIN [facility] Last Admin: 07/14/18 17:24 Dose: 20 mg Clonazepam (Klonopin) 0.5 mg PO HS [facility]; Protocol Last Admin: 07/14/18 21:28 Dose: 0.5 mg Clopidogrel Bisulfate (Plavix) 75 mg PO DAILY [facility] Last Admin: 07/15/18 09:36 Dose: 75 mg Dextrose (Dextrose 50% Inj) 0 ml IV STAT PRN; Protocol PRN Reason: Hypoglycemia Protocol Duloxetine HCl (Cymbalta) 60 mg PO DAILY [facility] Last Admin: 07/15/18 09:36 Dose: 60 mg Enoxaparin Sodium (Lovenox) 40 mg SC DAILY [facility]; Protocol Last Admin: 07/15/18 09:34 Dose: 40 mg Famotidine (Pepcid) 40 mg PO HS [facility] Last Admin: 07/14/18 21:28 Dose: 40 mg Furosemide (Lasix) 40 mg PO DAILY [facility] Last Admin: 07/15/18 09:36 Dose: 40 mg Dextrose (Dextrose 5% In Water 1000 Ml) 1,000 mls @ 0 mls/hr IV .Q0M PRN; Protocol PRN Reason: Hypoglycemia Protocol Sodium Chloride (Sodium Chloride 0.9%) 1,000 mls @ 125 mls/hr IV .Q8H [facility] Last Admin: 07/15/18 05:16 Dose: 125 mls/hr Vancomycin HCl (Vancomycin 1gm) 1 gm in 250 mls @ 167 mls/hr IVPB DAILY [facility]; Protocol Last Admin: 07/15/18 09:36 Dose: 167 mls/hr Piperacillin Sod/Tazobactam Sod (Zosyn 3.375 In Ns 100ml) 100 mls @ 25 mls/hr IVPB Q12 [facility]; Protocol Last Admin: 07/15/18 10:27 Dose: 25 mls/hr Insulin Detemir (Levemir) 16 unit SC Q12 [facility] Insulin Human Regular (Humulin R Med) 0 units SC ACHS [facility]; Protocol Last Admin: 07/15/18 11:54 Dose: Not Given Isosorbide Mononitrate (Imdur) 60 mg PO DAILY [facility] Last Admin: 07/15/18 09:36 Dose: 60 mg Lisinopril (Zestril) 10 mg PO DIN [facility] Last Admin: 07/14/18 17:23 Dose: 10 mg Metoprolol Tartrate (Lopressor) 50 mg PO BID [facility] Last Admin: 07/15/18 09:37 Dose: 50 mg Nystatin (Mycostatin Cream) 0 ea TOP TID [facility] Last Admin: 07/15/18 09:35 Dose: 1 applic Potassium Chloride (K-Dur 20 Meq Er Tab) 20 meq PO BRK [facility] Last Admin: 07/15/18 09:36 Dose: 20 meq Quetiapine Fumarate (Seroquel) 100 mg PO HS [facility]; Protocol Last Admin: 07/14/18 22:00 Dose: 100 mg Tamsulosin HCl (Flomax) 0.4 mg PO HS [facility] Last Admin: 07/14/18 21:28 Dose: 0.4 mg Ziprasidone (Geodon Cap) 60 mg PO BID [facility]; Protocol Last Admin: 07/15/18 09:37 Dose: 60 mg - Labs Labs: 07/15/18 08:00 07/15/18 08:00 PT 11.9 SECONDS (9.4-12.5) 07/13/18 22:30 INR 1.07 07/13/18 22:30 APTT 36.7 Seconds (26.9-38.3) 07/13/18 22:30 - Constitutional Appears: Well, Non-toxic, No Acute Distress - Head Exam Head Exam: ATRAUMATIC, NORMOCEPHALIC - Eye Exam Eye Exam: EOMI - ENT Exam ENT Exam: Mucous Membranes Moist - Respiratory Exam Respiratory Exam: NORMAL BREATHING PATTERN - Cardiovascular Exam Cardiovascular Exam: REGULAR RHYTHM - GI/Abdominal Exam GI & Abdominal Exam: Soft. absent: Tenderness, Rebound - Extremities Exam Extremities Exam: absent: Calf Tenderness - Neurological Exam Neurological Exam: Alert, Awake, Oriented x3 - Psychiatric Exam Psychiatric exam: Normal Affect, Normal Mood - Skin Skin Exam: Dry, Intact, Normal Color, Warm Assessment and Plan - Assessment and Plan (Free Text) Assessment: 58 M with scrotal and inguinal rash Plan: - continue nystatin powder - keep area clean and dry - recommendations as in previous note - no surgical intervention at this time - will discuss with Dr. Julito Correa, PGY 1
--- NOTE | 2018-07-15 13:57 | CP.PCM.PN ---
Subjective - Date & Time of Evaluation Date of Evaluation: 07/15/18 Time of Evaluation: 12:00 - Subjective Subjective: Infectious Disease Follow Up: July 15, 2018 58 yo male with PMHx of CAD, DM type 2, NPH, BPH, and Schizophrenia presented with 1 week of worsening erythema and swelling of the scrotum. He states that he has had a scrotal rash for the past year. The patient was using a steroid cream without relief or improvement. Scrotum with combination of tinea rash and secondary superinfection/cellulitis. The patient is receiving IV Vancomycin and Zosyn for antibiotic therapy. Nystatin powder for the tinea rash. Diflucan is not useful in non-Gay infections. Patient is feeling better. Objective - Vital Signs/Intake and Output Vital Signs (last 24 hours): Temp Pulse Resp BP Pulse Ox 98.2 F 93 H 20 146/78 94 L 07/15/18 06:00 07/15/18 06:00 07/15/18 06:00 07/15/18 09:36 07/15/18 06:00 Intake and Output: 07/15/18 07/15/18 06:59 18:59 Intake Total 2405 Output Total 1701 Balance 704 - Medications Medications: Current Medications Acetaminophen (Tylenol 325mg Tab) 650 mg PO Q6H PRN PRN Reason: Pain, Mild (1-3) Aspirin (Aspirin) 325 mg PO DAILY [facility] Last Admin: 07/15/18 09:40 Dose: 325 mg Atorvastatin Calcium (Lipitor) 20 mg PO DIN [facility] Last Admin: 07/14/18 17:24 Dose: 20 mg Clonazepam (Klonopin) 0.5 mg PO HS [facility]; Protocol Last Admin: 07/14/18 21:28 Dose: 0.5 mg Clopidogrel Bisulfate (Plavix) 75 mg PO DAILY [facility] Last Admin: 07/15/18 09:36 Dose: 75 mg Dextrose (Dextrose 50% Inj) 0 ml IV STAT PRN; Protocol PRN Reason: Hypoglycemia Protocol Duloxetine HCl (Cymbalta) 60 mg PO DAILY [facility] Last Admin: 07/15/18 09:36 Dose: 60 mg Enoxaparin Sodium (Lovenox) 40 mg SC DAILY [facility]; Protocol Last Admin: 07/15/18 09:34 Dose: 40 mg Famotidine (Pepcid) 40 mg PO HS [facility] Last Admin: 07/14/18 21:28 Dose: 40 mg Furosemide (Lasix) 40 mg PO DAILY [facility] Last Admin: 07/15/18 09:36 Dose: 40 mg Dextrose (Dextrose 5% In Water 1000 Ml) 1,000 mls @ 0 mls/hr IV .Q0M PRN; Protocol PRN Reason: Hypoglycemia Protocol Sodium Chloride (Sodium Chloride 0.9%) 1,000 mls @ 125 mls/hr IV .Q8H [facility] Last Admin: 07/15/18 05:16 Dose: 125 mls/hr Vancomycin HCl (Vancomycin 1gm) 1 gm in 250 mls @ 167 mls/hr IVPB DAILY [facility]; Protocol Last Admin: 07/15/18 09:36 Dose: 167 mls/hr Piperacillin Sod/Tazobactam Sod (Zosyn 3.375 In Ns 100ml) 100 mls @ 25 mls/hr IVPB Q12 [facility]; Protocol Last Admin: 07/15/18 10:27 Dose: 25 mls/hr Insulin Detemir (Levemir) 16 unit SC Q12 [facility] Insulin Human Regular (Humulin R Med) 0 units SC ACHS [facility]; Protocol Last Admin: 07/15/18 11:54 Dose: Not Given Isosorbide Mononitrate (Imdur) 60 mg PO DAILY [facility] Last Admin: 07/15/18 09:36 Dose: 60 mg Lisinopril (Zestril) 10 mg PO DIN [facility] Last Admin: 07/14/18 17:23 Dose: 10 mg Metoprolol Tartrate (Lopressor) 50 mg PO BID [facility] Last Admin: 07/15/18 09:37 Dose: 50 mg Nystatin (Mycostatin Cream) 0 ea TOP TID [facility] Last Admin: 07/15/18 09:35 Dose: 1 applic Potassium Chloride (K-Dur 20 Meq Er Tab) 20 meq PO BRK [facility] Last Admin: 07/15/18 09:36 Dose: 20 meq Quetiapine Fumarate (Seroquel) 100 mg PO HS [facility]; Protocol Last Admin: 07/14/18 22:00 Dose: 100 mg Tamsulosin HCl (Flomax) 0.4 mg PO HS [facility] Last Admin: 07/14/18 21:28 Dose: 0.4 mg Ziprasidone (Geodon Cap) 60 mg PO BID [facility]; Protocol Last Admin: 07/15/18 09:37 Dose: 60 mg - Labs Labs: 07/15/18 08:00 07/15/18 08:00 PT 11.9 SECONDS (9.4-12.5) 07/13/18 22:30 INR 1.07 07/13/18 22:30 APTT 36.7 Seconds (26.9-38.3) 07/13/18 22:30 - Constitutional Appears: Non-toxic, No Acute Distress - Head Exam Head Exam: ATRAUMATIC, NORMOCEPHALIC - Eye Exam Eye Exam: EOMI, PERRL Pupil Exam: NORMAL ACCOMODATION, PERRL - ENT Exam ENT Exam: Mucous Membranes Moist, Normal External Ear Exam, TM's Normal Bilaterally - Neck Exam Neck Exam: Full ROM, Normal Inspection - Respiratory Exam Respiratory Exam: Clear to Ausculation Bilateral, NORMAL BREATHING PATTERN. absent: Rales, Rhonchi, Wheezes - Cardiovascular Exam Cardiovascular Exam: REGULAR RHYTHM, RRR, +S1, +S2 - GI/Abdominal Exam GI & Abdominal Exam: Soft, Normal Bowel Sounds. absent: Distended, Tenderness - Exam Exam: Scrotal Swelling, Testicular Tenderness External exam: Erythema Additional comments: Erythematous rash with peripheral excoriations between abdominal and inguinal skin folds and underlying scrotum that is reducing in size Bilateral inguinal and scrotal region tender to palpation but improving No discharge or purulence, no necrosis or gangrenous areas visualized. Areas of dry skin. Palpable bilateral inguinal hernias - Extremities Exam Extremities Exam: Full ROM, Normal Inspection. absent: Joint Swelling, Pedal Edema - Neurological Exam Neurological Exam: Alert, Awake, CN II-XII Intact, Oriented x3 - Psychiatric Exam Psychiatric exam: Flat Affect - Skin Additional comments: As above Assessment and Plan - Assessment and Plan (Free Text) Assessment: 58 yo male with scrotal swelling and erythema. Testicular ultrasouns showing bilateral hydroceles but no torsion. Multiple medical issues including DM and HTN. Started on Zosyn and IV Vancomycin for antibiotic care. Monitor renal function. Poorly controlled diabetes. Monitor level of Vancomycin. Continue with Zosyn and IV Vancomycin. Local wound care. Nystatin powder placed on scrotum for Tinea rash. Urine cultures with gram negative angelina growth. Supportive care. Thank you for allowing me to participate in the care of this patient, we will follow with you.
--- NOTE | 2018-07-15 14:38 | CP.PCM.PN ---
<Drew Guzman - Last Filed: 07/15/18 15:49> Subjective - Date & Time of Evaluation Date of Evaluation: 07/15/18 Time of Evaluation: 14:36 - Subjective Subjective: Drew Guzman, PGY1 Progress Note: Pt was seen and examined this AM at bedside. Pt stated that he is continues to feel pain in the groin region, but it has improved. Pt also states that his itching has improved since admission. At this time he admits to no acute complaints except for some tenderness upon palpation of the groin area. Objective - Vital Signs/Intake and Output Vital Signs (last 24 hours): Temp Pulse Resp BP Pulse Ox 98.2 F 93 H 20 146/78 94 L 07/15/18 06:00 07/15/18 06:00 07/15/18 06:00 07/15/18 09:36 07/15/18 06:00 Intake and Output: 07/15/18 07/15/18 06:59 18:59 Intake Total 2405 Output Total 1701 Balance 704 - Medications Medications: Current Medications Acetaminophen (Tylenol 325mg Tab) 650 mg PO Q6H PRN PRN Reason: Pain, Mild (1-3) Aspirin (Aspirin) 325 mg PO DAILY [facility] Last Admin: 07/15/18 09:40 Dose: 325 mg Atorvastatin Calcium (Lipitor) 20 mg PO DIN [facility] Last Admin: 07/14/18 17:24 Dose: 20 mg Clonazepam (Klonopin) 0.5 mg PO HS [facility]; Protocol Last Admin: 07/14/18 21:28 Dose: 0.5 mg Clopidogrel Bisulfate (Plavix) 75 mg PO DAILY [facility] Last Admin: 07/15/18 09:36 Dose: 75 mg Dextrose (Dextrose 50% Inj) 0 ml IV STAT PRN; Protocol PRN Reason: Hypoglycemia Protocol Duloxetine HCl (Cymbalta) 60 mg PO DAILY [facility] Last Admin: 07/15/18 09:36 Dose: 60 mg Enoxaparin Sodium (Lovenox) 40 mg SC DAILY [facility]; Protocol Last Admin: 07/15/18 09:34 Dose: 40 mg Famotidine (Pepcid) 40 mg PO HS [facility] Last Admin: 07/14/18 21:28 Dose: 40 mg Furosemide (Lasix) 40 mg PO DAILY [facility] Last Admin: 07/15/18 09:36 Dose: 40 mg Dextrose (Dextrose 5% In Water 1000 Ml) 1,000 mls @ 0 mls/hr IV .Q0M PRN; Protocol PRN Reason: Hypoglycemia Protocol Sodium Chloride (Sodium Chloride 0.9%) 1,000 mls @ 125 mls/hr IV .Q8H [facility] Last Admin: 07/15/18 05:16 Dose: 125 mls/hr Vancomycin HCl (Vancomycin 1gm) 1 gm in 250 mls @ 167 mls/hr IVPB DAILY [facility]; Protocol Last Admin: 07/15/18 09:36 Dose: 167 mls/hr Piperacillin Sod/Tazobactam Sod (Zosyn 3.375 In Ns 100ml) 100 mls @ 25 mls/hr IVPB Q12 [facility]; Protocol Last Admin: 07/15/18 10:27 Dose: 25 mls/hr Insulin Detemir (Levemir) 16 unit SC Q12 [facility] Insulin Human Regular (Humulin R Med) 0 units SC ACHS [facility]; Protocol Last Admin: 07/15/18 11:54 Dose: Not Given Isosorbide Mononitrate (Imdur) 60 mg PO DAILY [facility] Last Admin: 07/15/18 09:36 Dose: 60 mg Lisinopril (Zestril) 10 mg PO DIN [facility] Last Admin: 07/14/18 17:23 Dose: 10 mg Metoprolol Tartrate (Lopressor) 50 mg PO BID [facility] Last Admin: 07/15/18 09:37 Dose: 50 mg Nystatin (Mycostatin Cream) 0 ea TOP TID [facility] Last Admin: 07/15/18 14:04 Dose: Not Given Potassium Chloride (K-Dur 20 Meq Er Tab) 20 meq PO BRK [facility] Last Admin: 07/15/18 09:36 Dose: 20 meq Quetiapine Fumarate (Seroquel) 100 mg PO HS [facility]; Protocol Last Admin: 07/14/18 22:00 Dose: 100 mg Tamsulosin HCl (Flomax) 0.4 mg PO HS [facility] Last Admin: 07/14/18 21:28 Dose: 0.4 mg Ziprasidone (Geodon Cap) 60 mg PO BID [facility]; Protocol Last Admin: 07/15/18 09:37 Dose: 60 mg - Labs Labs: 07/15/18 08:00 07/15/18 08:00 PT 11.9 SECONDS (9.4-12.5) 07/13/18 22:30 INR 1.07 07/13/18 22:30 APTT 36.7 Seconds (26.9-38.3) 07/13/18 22:30 - Constitutional Appears: Non-toxic, No Acute Distress - Head Exam Head Exam: ATRAUMATIC, NORMAL INSPECTION, NORMOCEPHALIC - Eye Exam Eye Exam: EOMI, Normal appearance, PERRL - Respiratory Exam Respiratory Exam: Clear to Ausculation Bilateral, NORMAL BREATHING PATTERN. absent: Accessory Muscle Use, Rales, Rhonchi, Wheezes, Respiratory Distress - Cardiovascular Exam Cardiovascular Exam: RRR, +S1, +S2. absent: Gallop, Rubs - GI/Abdominal Exam GI & Abdominal Exam: Soft, Normal Bowel Sounds. absent: Firm, Guarding, Rigid, Tenderness - Exam Exam: Scrotal Swelling. absent: Uretheral Discharge, Bladder Distension External exam: Erythema, Swelling. absent: Lacerations, Lesions Additional comments: Lower abdominal folds have diffuse erythema and is warm to palpation, consistent with cellulitis, testes are swollen - Extremities Exam Extremities Exam: Normal Capillary Refill. absent: Calf Tenderness, Tenderness - Back Exam Back Exam: NORMAL INSPECTION. absent: CVA tenderness (L), CVA tenderness (R) - Neurological Exam Neurological Exam: Alert, Awake, Oriented x3 - Psychiatric Exam Psychiatric exam: Normal Affect, Normal Mood - Skin Skin Exam: Dry, Normal Color, Warm Assessment and Plan - Assessment and Plan (Free Text) Assessment: Pt is a 58 yo M with PMH of CAD (s/p PCI on DAPT), DM2 (last A1c 11.4), normal pressure hydrocephalus (s/p LCSW shunt), BPH, and schizophrenia admitted for management of lower abdominal/scrotal cellulitis. ID on board, and pt is improving clinically. Plan: 1) Lower abdominal/scrotal cellulitis - Pt has erythema extending from intertriginous area of groin to scrotum - Pt has warmth and tenderness upon palpation. - Pt continues to be afebrile without leukocytosis. - No evidence of testicular mass, torsion or epididymos-orchitis, small b/l hydroceles - B/l inguinal hernias visualized on CTAP, no gangrene noted. - ID consult placed, all recs appreciated - Diflucan d/rosaura per ID recs 2) CAD s/p PCI - Continue DAPT, imdur, lisinopril, lopressor, lipitor - Lipid panel T, Chol: 98, LDL: 39, HDL: 21 3) DM2 - ISS while admitted - Adjusted home insulin dose today to 16 BID - A1c = 9.0 4) BPH - Continue flomax 5) NPH s/p LCSW shunt - No active issues, continue home meds 6) Schizophrenia - Continue home meds DVT/GI PPX: Lovenox/pepcid Patient seen and discussed with Dr. Hussein Guzman PGY1 <Altagracia Savage - Last Filed: 07/15/18 16:29> Objective - Vital Signs/Intake and Output Vital Signs (last 24 hours): Temp Pulse Resp BP Pulse Ox 98.2 F 93 H 20 146/78 94 L 07/15/18 06:00 07/15/18 06:00 07/15/18 06:00 07/15/18 09:36 07/15/18 06:00 Intake and Output: 07/15/18 07/15/18 06:59 18:59 Intake Total 2405 Output Total 1701 Balance 704 - Medications Medications: Current Medications Acetaminophen (Tylenol 325mg Tab) 650 mg PO Q6H PRN PRN Reason: Pain, Mild (1-3) Aspirin (Aspirin) 325 mg PO DAILY [facility] Last Admin: 07/15/18 09:40 Dose: 325 mg Atorvastatin Calcium (Lipitor) 20 mg PO DIN [facility] Last Admin: 07/14/18 17:24 Dose: 20 mg Clopidogrel Bisulfate (Plavix) 75 mg PO DAILY [facility] Last Admin: 07/15/18 09:36 Dose: 75 mg Dextrose (Dextrose 50% Inj) 0 ml IV STAT PRN; Protocol PRN Reason: Hypoglycemia Protocol Duloxetine HCl (Cymbalta) 60 mg PO DAILY [facility] Last Admin: 07/15/18 09:36 Dose: 60 mg Enoxaparin Sodium (Lovenox) 40 mg SC DAILY [facility]; Protocol Last Admin: 07/15/18 09:34 Dose: 40 mg Famotidine (Pepcid) 40 mg PO HS [facility] Last Admin: 07/14/18 21:28 Dose: 40 mg Furosemide (Lasix) 40 mg PO DAILY [facility] Last Admin: 07/15/18 09:36 Dose: 40 mg Dextrose (Dextrose 5% In Water 1000 Ml) 1,000 mls @ 0 mls/hr IV .Q0M PRN; Protocol PRN Reason: Hypoglycemia Protocol Sodium Chloride (Sodium Chloride 0.9%) 1,000 mls @ 125 mls/hr IV .Q8H [facility] Last Admin: 07/15/18 05:16 Dose: 125 mls/hr Vancomycin HCl (Vancomycin 1gm) 1 gm in 250 mls @ 167 mls/hr IVPB DAILY [facility]; Protocol Last Admin: 07/15/18 09:36 Dose: 167 mls/hr Piperacillin Sod/Tazobactam Sod (Zosyn 3.375 In Ns 100ml) 100 mls @ 25 mls/hr IVPB Q12 [facility]; Protocol Last Admin: 07/15/18 10:27 Dose: 25 mls/hr Insulin Detemir (Levemir) 16 unit SC Q12 [facility] Insulin Human Regular (Humulin R Med) 0 units SC ACHS [facility]; Protocol Last Admin: 07/15/18 11:54 Dose: Not Given Isosorbide Mononitrate (Imdur) 60 mg PO DAILY [facility] Last Admin: 07/15/18 09:36 Dose: 60 mg Lisinopril (Zestril) 10 mg PO DIN [facility] Last Admin: 07/14/18 17:23 Dose: 10 mg Metoprolol Tartrate (Lopressor) 50 mg PO BID [facility] Last Admin: 07/15/18 09:37 Dose: 50 mg Nystatin (Mycostatin Cream) 0 ea TOP TID [facility] Last Admin: 07/15/18 14:04 Dose: Not Given Potassium Chloride (K-Dur 20 Meq Er Tab) 20 meq PO BRK [facility] Last Admin: 07/15/18 09:36 Dose: 20 meq Quetiapine Fumarate (Seroquel) 100 mg PO HS [facility]; Protocol Last Admin: 07/14/18 22:00 Dose: 100 mg Tamsulosin HCl (Flomax) 0.4 mg PO HS [facility] Last Admin: 07/14/18 21:28 Dose: 0.4 mg Ziprasidone (Geodon Cap) 80 mg PO HS [facility]; Protocol Ziprasidone (Geodon Cap) 60 mg PO QAM [facility]; Protocol - Labs Labs: 07/15/18 08:00 07/15/18 08:00 PT 11.9 SECONDS (9.4-12.5) 07/13/18 22:30 INR 1.07 07/13/18 22:30 APTT 36.7 Seconds (26.9-38.3) 07/13/18 22:30 Attending/Attestation - Attestation I have personally seen and examined this patient.: Yes I have fully participated in the care of the patient.: Yes I have reviewed all pertinent clinical information, including history, physical exam and plan: Yes Notes (Text): 07/15/18 16:24 58 year old male with past medical history of CAD s/p stent, diabetes, NPH s/p VPS, BPH, and schizophrenia who presented with lower abdominal wall / scrotal cellulitis. Patient is on iv antibiotics and nystatin topical. Erythema today is slowly improving. CT abd/pelvis and ultrasound was reviewed as above. Surgery is also following for bilateral inguinal hernias as sen on CT scan. Patient is on levemir for diabetes. Dose was adjusted today for hyperglycemia. Altagracia Savage MD Hospitalist.
[2018-07-15 16:42] VITALS: RESP 18
[2018-07-16 06:31] LABS: BASO # 0.04 K/mm3 (0.0-2.0); BASO % 0.6 % (0.0-3.0); EOS # 0.4 (0.0-0.7); EOS % 5.9 % (1.5-5.0); HEMOGLOBIN 13.6 g/dL (14.0-18.0); LYMPH # 1.8 (1.2-3.4); LYMPH % 27.7 % (22.0-35.0); MEAN CELL VOLUME 97.7 fl (80.0-105.0); MEAN CORPUSCULAR HEMOGLOBIN 30.8 pg (25.0-35.0); MEAN CORPUSCULAR HGB CONC 31.5 g/dl (31.0-37.0); MEAN PLATELET VOLUME 13.4 fl (7.0-11.0); MONO # 0.5 (0.1-0.6); MONO % 8.3 % (1.0-6.0); RBC 4.42 10^6/uL (3.5-6.1); RED CELL DISTRIBUTION WIDTH 13.1 % (11.5-14.5); WHITE BLOOD COUNT 6.5 10^3/uL (4.5-11.0)
[2018-07-16 07:13] LABS: ALB/GLOB RATIO 1.1 (1.1-1.8); ALBUMIN 3.8 g/dL (3.0-4.8); ALT/SGPT 16 U/L (7-56); AST/SGOT 27 U/L (17-59); BLOOD UREA NITROGEN 15 mg/dL (7-21); CALCIUM 9.1 mg/dL (8.4-10.5); GFR NON-AFRICAN AMERICAN > 60
[2018-07-16 08:24] VITALS: PULSE 90; TEMP 97.9; O2SAT 93
--- NOTE | 2018-07-16 08:54 | CP.PCM.PN ---
Objective - Vital Signs/Intake and Output Vital Signs (last 24 hours): Temp Pulse Resp BP Pulse Ox 97.9 F 90 18 151/82 H 93 L 07/16/18 08:23 07/16/18 08:23 07/16/18 08:23 07/16/18 08:23 07/16/18 08:23 Intake and Output: 07/16/18 07/16/18 06:59 18:59 Intake Total 1740 240 Balance 1740 240 - Medications Medications: Current Medications Acetaminophen (Tylenol 325mg Tab) 650 mg PO Q6H PRN PRN Reason: Pain, Mild (1-3) Aspirin (Aspirin) 325 mg PO DAILY [facility] Last Admin: 07/15/18 09:40 Dose: 325 mg Atorvastatin Calcium (Lipitor) 20 mg PO DIN [facility] Last Admin: 07/15/18 17:39 Dose: 20 mg Clopidogrel Bisulfate (Plavix) 75 mg PO DAILY [facility] Last Admin: 07/15/18 09:36 Dose: 75 mg Dextrose (Dextrose 50% Inj) 0 ml IV STAT PRN; Protocol PRN Reason: Hypoglycemia Protocol Duloxetine HCl (Cymbalta) 60 mg PO DAILY [facility] Last Admin: 07/15/18 09:36 Dose: 60 mg Enoxaparin Sodium (Lovenox) 40 mg SC DAILY [facility]; Protocol Last Admin: 07/15/18 09:34 Dose: 40 mg Famotidine (Pepcid) 40 mg PO HS [facility] Last Admin: 07/16/18 00:08 Dose: 40 mg Furosemide (Lasix) 40 mg PO DAILY [facility] Last Admin: 07/15/18 09:36 Dose: 40 mg Dextrose (Dextrose 5% In Water 1000 Ml) 1,000 mls @ 0 mls/hr IV .Q0M PRN; Protocol PRN Reason: Hypoglycemia Protocol Sodium Chloride (Sodium Chloride 0.9%) 1,000 mls @ 125 mls/hr IV .Q8H [facility] Last Admin: 07/15/18 05:16 Dose: 125 mls/hr Vancomycin HCl (Vancomycin 1gm) 1 gm in 250 mls @ 167 mls/hr IVPB DAILY [facility]; Protocol Last Admin: 07/15/18 09:36 Dose: 167 mls/hr Piperacillin Sod/Tazobactam Sod (Zosyn 3.375 In Ns 100ml) 100 mls @ 25 mls/hr IVPB Q12 [facility]; Protocol Last Admin: 07/15/18 22:43 Dose: 25 mls/hr Insulin Detemir (Levemir) 16 unit SC Q12 [facility] Last Admin: 07/15/18 22:44 Dose: 16 u Insulin Human Regular (Humulin R Med) 0 units SC ACHS [facility]; Protocol Last Admin: 07/15/18 22:34 Dose: Not Given Isosorbide Mononitrate (Imdur) 60 mg PO DAILY [facility] Last Admin: 07/15/18 09:36 Dose: 60 mg Lisinopril (Zestril) 10 mg PO DIN [facility] Last Admin: 07/15/18 17:39 Dose: 10 mg Metoprolol Tartrate (Lopressor) 50 mg PO BID [facility] Last Admin: 07/15/18 17:39 Dose: 50 mg Nystatin (Mycostatin Cream) 0 ea TOP TID [facility] Last Admin: 07/15/18 17:38 Dose: 1 applic Potassium Chloride (K-Dur 20 Meq Er Tab) 20 meq PO BRK [facility] Last Admin: 07/15/18 09:36 Dose: 20 meq Quetiapine Fumarate (Seroquel) 100 mg PO HS [facility]; Protocol Last Admin: 07/15/18 22:44 Dose: 100 mg Tamsulosin HCl (Flomax) 0.4 mg PO HS [facility] Last Admin: 07/15/18 22:45 Dose: 0.4 mg Ziprasidone (Geodon Cap) 80 mg PO HS [facility]; Protocol Last Admin: 07/15/18 23:44 Dose: 80 mg Ziprasidone (Geodon Cap) 60 mg PO QAM [facility]; Protocol - Labs Labs: 07/16/18 06:00 07/16/18 06:00 PT 11.9 SECONDS (9.4-12.5) 07/13/18 22:30 INR 1.07 07/13/18 22:30 APTT 36.7 Seconds (26.9-38.3) 07/13/18 22:30
[2018-07-16] MEDS: Potassium Chloride 20 mEq ER Tab PO SCH (10:05)
[2018-07-16] MEDS: Insulin Reg-MEDIUM-Coverage SC SCH ×2 (10:05→11:50)
[2018-07-16] MEDS: Insulin Detemir 100 units/ml Vial (Levemir) SC SCH (10:06)
[2018-07-16] MEDS: Nystatin 100,000 Units/gm Cream(15 gm) TOP SCH ×2 (10:07→13:52)
[2018-07-16] MEDS: Enoxaparin 40 mg Syringe SC SCH (10:07)
[2018-07-16] MEDS: Vancomycin 1gm in NS 250ml 1 GM/250 ML BAG IVPB SCH (10:09)
[2018-07-16 10:13] VITALS: BP 155/70
[2018-07-16] MEDS: Piperacillin/Tazobact 3.375 gm 100 ML IVPB SCH (11:01)
--- NOTE | 2018-07-16 19:03 | CP.PCM.DIS ---
<Drew Guzman - Last Filed: 07/17/18 22:53> Provider - Provider Date of Admission: 07/14/18 15:58 Attending physician: Altagracia Savage MD Primary care physician: Noemi Francis MD Consults: 07/14/18 02:14 Infectious Disease Consult Routine Comment: Consulting Provider: Umer Kruse Consulting Physician: Umer Kruse Reason for Consult: lower abdominal and scrotal cellulitis 07/14/18 03:09 Consult [Physician Consult] Routine Comment: hydrocoele Consulting Provider: Bayron Doyle Consulting Physician: Bayron Doyle Reason for Consult: scrotal pain,hydrocoele 07/14/18 03:21 Social Work Referral Routine Comment: martin score 8 Physician Instructions: Reason For Exam: protocol 07/14/18 03:39 Transition In Care/Readmission Reduction Routine Comment: Physician Instructions: Reason For Exam: PROTOCOL 07/14/18 16:08 Wound Care [Nursing Referral for Wound Care] Routine Comment: Physician Instructions: Reason For Exam: inguinal rash with excoriations 07/15/18 15:24 Diabetic Education Referral Routine Comment: Physician Instructions: Reason For Exam: a1c 9.0; needs teaching on how to chk sugar daily Time Spent in preparation of Discharge (in minutes): 45 Hospital Course - Lab Results Lab Results: Micro Results 07/14/18 02:00 Urine,Clean Catch Urine Culture - Final Beta Hemolytic Strep Group B 07/13/18 22:30 Blood Blood Culture - Preliminary NO GROWTH AFTER 48 HOURS 07/13/18 22:00 Blood Blood Culture - Preliminary NO GROWTH AFTER 48 HOURS Most Recent Lab Values WBC 6.5 10^3/uL (4.5-11.0) 07/16/18 06:00 RBC 4.42 10^6/uL (3.5-6.1) 07/16/18 06:00 Hgb 13.6 g/dL (14.0-18.0) L 07/16/18 06:00 Hct 43.2 % (42.0-52.0) 07/16/18 06:00 MCV 97.7 fl (80.0-105.0) 07/16/18 06:00 MCH 30.8 pg (25.0-35.0) 07/16/18 06:00 MCHC 31.5 g/dl (31.0-37.0) 07/16/18 06:00 RDW 13.1 % (11.5-14.5) 07/16/18 06:00 Plt Count 142 10^3/uL (120.0-450.0) 07/16/18 06:00 MPV 13.4 fl (7.0-11.0) H 07/16/18 06:00 Neut % (Auto) 57.5 % (50.0-68.0) 07/16/18 06:00 Lymph % (Auto) 27.7 % (22.0-35.0) 07/16/18 06:00 Harvey % (Auto) 8.3 % (1.0-6.0) H 07/16/18 06:00 Eos % (Auto) 5.9 % (1.5-5.0) H 07/16/18 06:00 Baso % (Auto) 0.6 % (0.0-3.0) 07/16/18 06:00 Lymph # (Auto) 1.8 (1.2-3.4) 07/16/18 06:00 Harvey # (Auto) 0.5 (0.1-0.6) 07/16/18 06:00 Eos # (Auto) 0.4 (0.0-0.7) 07/16/18 06:00 Baso # (Auto) 0.04 K/mm3 (0.0-2.0) 07/16/18 06:00 Absolute Neuts (auto) 3.72 (1.4-6.5) 07/16/18 06:00 PT 11.9 SECONDS (9.4-12.5) 07/13/18 22:30 INR 1.07 07/13/18 22:30 APTT 36.7 Seconds (26.9-38.3) 07/13/18 22:30 Sodium 141 mmol/L (132-148) 07/16/18 06:00 Potassium 4.3 mmol/L (3.6-5.0) 07/16/18 06:00 Chloride 105 mmol/L (98-107) 07/16/18 06:00 Carbon Dioxide 28 mmol/L (21-33) 07/16/18 06:00 Anion Gap 13 (10-20) 07/16/18 06:00 BUN 15 mg/dL (7-21) 07/16/18 06:00 Creatinine 0.9 mg/dl (0.8-1.5) 07/16/18 06:00 Est GFR ( Amer) > 60 07/16/18 06:00 Est GFR (Non-Af Amer) > 60 07/16/18 06:00 POC Glucose (mg/dL) 417 mg/dL (65-110) H* 07/16/18 11:06 Random Glucose 284 mg/dL (70-110) H 07/16/18 06:00 Hemoglobin A1c 9.0 % (4.2-6.5) H D 07/14/18 06:00 Calcium 9.1 mg/dL (8.4-10.5) 07/16/18 06:00 Phosphorus 2.6 mg/dL (2.5-4.5) 07/14/18 06:00 Magnesium 1.7 mg/dL (1.7-2.2) 07/14/18 06:00 Total Bilirubin 0.4 mg/dL (0.2-1.3) 07/16/18 06:00 AST 27 U/L (17-59) 07/16/18 06:00 ALT 16 U/L (7-56) 07/16/18 06:00 Alkaline Phosphatase 55 U/L (38-126) 07/16/18 06:00 Total Protein 7.1 g/dL (5.8-8.3) 07/16/18 06:00 Albumin 3.8 g/dL (3.0-4.8) 07/16/18 06:00 Globulin 3.3 gm/dL 07/16/18 06:00 Albumin/Globulin Ratio 1.1 (1.1-1.8) 07/16/18 06:00 Triglycerides 128 mg/dL (35-160) 07/14/18 06:00 Cholesterol 98 mg/dL (130-200) L 07/14/18 06:00 LDL Cholesterol Direct 39 mg/dL (0-129) 07/14/18 06:00 HDL Cholesterol 21 mg/dL (29-60) L 07/14/18 06:00 Urine Color Yellow (YELLOW) 07/14/18 02:00 Urine Appearance Clear (CLEAR) 07/14/18 02:00 Urine pH 6.0 (4.7-8.0) 07/14/18 02:00 Ur Specific [place] 1.025 (1.005-1.035) 07/14/18 02:00 Urine Protein 30 mg/dL (<30 mg/dL) H 07/14/18 02:00 Urine Glucose (UA) Negative mg/dL (NEGATIVE) 07/14/18 02:00 Urine Ketones Negative mg/dL (NEGATIVE) 07/14/18 02:00 Urine Blood Negative (NEGATIVE) 07/14/18 02:00 Urine Nitrate Negative (NEGATIVE) 07/14/18 02:00 Urine Bilirubin Negative (NEGATIVE) 07/14/18 02:00 Urine Urobilinogen 0.2 E.U./dL (<1 E.U./dL) 07/14/18 02:00 Ur Leukocyte Esterase Moderate Iris/uL (NEGATIVE) H 07/14/18 02:00 Urine RBC 0 - 2 /hpf (0-2) 07/14/18 02:00 Urine WBC 5 - 10 /hpf (0-6) H 07/14/18 02:00 Ur Epithelial Cells 1 - 3 /hpf (0-5) 07/14/18 02:00 Urine Bacteria Occ /hpf (NONE) 07/14/18 02:00 - Hospital Course Hospital Course: Upon Admission: Patient is a 58 year old male with PMH of CAD (s/p PCI on DAPT), DM2 (last A1c 11.4), normal pressure hydrocephalus (s/p [employer] shunt), BPH, and schizophrenia who presented with worsening scrotal redness and pain for the past week. The redness first appeared under his abdominal folds one week ago and but now has spread to the scrotum. He stated that he applyed steroid cream to the area without relief. He reported the scrotal swelling had been going on for the past month but became painful the past few days. Physical exam showed scrotal swelling along with combination of tinea rash and secondary superinfection/cellulitis. Hospital Course: Pt was being worked up for subabdominal cellulitis. Patient was started on vancomycin & zosyn in ED. Pt was noted to be afebrile and without leukocytosis. Testicular ultrasound showed bilateral hydroceles but no torsion. ON CTAP bilateral inguinal hernias were visualized, but noted to only be containing fat. Urine culture was positive for gram positive Group B Strep growth. Infectious Disease consult was requested and they recommended continuing IV Vancomycin and Zosyn for antibiotic therapy and Nystatin powder for the tinea rash that was present in his groin. Surgical consult recommended no surgical intervention at this time. Patient was provided with daily local wound care which resulted in significant improvement of pain/swelling and consistently decreasing margins of the cellulitis. Pt reports improvement in his pain and swelling in the groin and testicular region. Pt states that he is feeling better and is able to move his lower extermity more freely without additional pain. ID was switched to PO abx, clindamycin and continued on topical nystatin for suspected candidal infection. Patient was stable and ready for discharge today. He reported feeling better this morning and improvement of pain symptoms. He was told to continue his home meds as well as antibiotics. Patient was directed to follow up with his PMD and urologist. In addition, he was told to return to the emergency department if she had any recurring or new concerning symptoms. This is a brief summary of the events that occurred during this hospital stay. For more information, please refer to the hospital documentation. Discharge Exam - Head Exam Head Exam: ATRAUMATIC, NORMAL INSPECTION, NORMOCEPHALIC - Eye Exam Eye Exam: EOMI, Normal appearance, PERRL - Respiratory Exam Respiratory Exam: Clear to PA & Lateral, NORMAL BREATHING PATTERN, UNREMARKABLE. absent: Prolonged Expiratory Phase, Respiratory Distress - Cardiovascular Exam Cardiovascular Exam: RRR, +S1, +S2. absent: Gallop, Rubs - GI/Abdominal Exam GI & Abdominal Exam: Normal Bowel Sounds, Soft, Unremarkable. absent: Firm, Guarding, Rigid, Tenderness - Exam Exam: Scrotal Swelling. absent: Uretheral Discharge External exam: Erythema. absent: Lacerations Additional comments: Lower abdominal folds have erythema that is improving and decreasing in size. Tender to palpation, which is also improving consistent with cellulitis, testes are swollen. - Extremities Exam Extremities exam: normal capillary refill, normal inspection, pedal pulses present - Back Exam Back exam: NORMAL INSPECTION. absent: CVA tenderness (L), CVA tenderness (R) - Neurological Exam Neurological exam: Alert, Normal Gait, Oriented x3 - Psychiatric Exam Psychiatric exam: Normal Affect, Normal Mood - Skin Skin Exam: Dry, Warm Discharge Plan - Discharge Medications Prescriptions: Atorvastatin [Lipitor] 20 mg PO DIN 30 Days #30 tab Clindamycin [Clindamycin HCl] 300 mg PO TID 14 Days #42 cap Lisinopril [Zestril] 10 mg PO DIN 30 Days #30 tab Nystatin [Mycostatin Cream] 1 appl TP BID #1 tube - Follow Up Plan Condition: STABLE Disposition: HOME/ ROUTINE Instructions: Diabetes Diet , Cellulitis (Skin Infection), Adult (DC) Additional Instructions: Please follow-up with your Primary medical doctor, Dr Francis, within 7 days of discharge. Please follow-up with a urologist concerning your hydrocele. You were given information for urologist Dr Tapia who accepts your insurance. The following scripts were electronically sent over to your [facility] pharmacy at [address] [place] [address]: 1. clindamycin 300mg take with breakfast, lunch and dinner for 14 days 2. Nystatin topical cream, apply to rash morning and night for 14 days. Please eat a daily probiotic yogurt daily for the next month as this can reduce any clindamycin associated diarrhea. Please continue all your other regular home medications. If symptoms return, promptly go to your nearest emergency department. Referrals: Noemi Francis MD [Primary Care Provider] - Lupillo Tapia MD [Staff Provider] - <Altagracia Savage - Last Filed: 07/18/18 06:53> Provider - Provider Date of Admission: 07/14/18 15:58 Attending physician: Altagracia Savage MD Primary care physician: Noemi Francis MD Consults: 07/14/18 02:14 Infectious Disease Consult Routine Comment: Consulting Provider: Umer Kruse Consulting Physician: Umer Kruse Reason for Consult: lower abdominal and scrotal cellulitis 07/14/18 03:09 Consult [Physician Consult] Routine Comment: hydrocoele Consulting Provider: Bayron Doyle Consulting Physician: Bayron Doyle Reason for Consult: scrotal pain,hydrocoele 07/14/18 03:21 Social Work Referral Routine Comment: martin score 8 Physician Instructions: Reason For Exam: protocol 07/14/18 03:39 Transition In Care/Readmission Reduction Routine Comment: Physician Instructions: Reason For Exam: PROTOCOL 07/14/18 16:08 Wound Care [Nursing Referral for Wound Care] Routine Comment: Physician Instructions: Reason For Exam: inguinal rash with excoriations 07/15/18 15:24 Diabetic Education Referral Routine Comment: Physician Instructions: Reason For Exam: a1c 9.0; needs teaching on how to chk sugar daily Hospital Course - Lab Results Lab Results: Micro Results 07/13/18 22:30 Blood Blood Culture - Preliminary NO GROWTH AFTER 4 DAYS 07/13/18 22:00 Blood Blood Culture - Preliminary NO GROWTH AFTER 4 DAYS 07/14/18 02:00 Urine,Clean Catch Urine Culture - Final Beta Hemolytic Strep Group B Most Recent Lab Values WBC 6.5 10^3/uL (4.5-11.0) 07/16/18 06:00 RBC 4.42 10^6/uL (3.5-6.1) 07/16/18 06:00 Hgb 13.6 g/dL (14.0-18.0) L 07/16/18 06:00 Hct 43.2 % (42.0-52.0) 07/16/18 06:00 MCV 97.7 fl (80.0-105.0) 07/16/18 06:00 MCH 30.8 pg (25.0-35.0) 07/16/18 06:00 MCHC 31.5 g/dl (31.0-37.0) 07/16/18 06:00 RDW 13.1 % (11.5-14.5) 07/16/18 06:00 Plt Count 142 10^3/uL (120.0-450.0) 07/16/18 06:00 MPV 13.4 fl (7.0-11.0) H 07/16/18 06:00 Neut % (Auto) 57.5 % (50.0-68.0) 07/16/18 06:00 Lymph % (Auto) 27.7 % (22.0-35.0) 07/16/18 06:00 Harvey % (Auto) 8.3 % (1.0-6.0) H 07/16/18 06:00 Eos % (Auto) 5.9 % (1.5-5.0) H 07/16/18 06:00 Baso % (Auto) 0.6 % (0.0-3.0) 07/16/18 06:00 Lymph # (Auto) 1.8 (1.2-3.4) 07/16/18 06:00 Harvey # (Auto) 0.5 (0.1-0.6) 07/16/18 06:00 Eos # (Auto) 0.4 (0.0-0.7) 07/16/18 06:00 Baso # (Auto) 0.04 K/mm3 (0.0-2.0) 07/16/18 06:00 Absolute Neuts (auto) 3.72 (1.4-6.5) 07/16/18 06:00 PT 11.9 SECONDS (9.4-12.5) 07/13/18 22:30 INR 1.07 07/13/18 22:30 APTT 36.7 Seconds (26.9-38.3) 07/13/18 22:30 Sodium 141 mmol/L (132-148) 07/16/18 06:00 Potassium 4.3 mmol/L (3.6-5.0) 07/16/18 06:00 Chloride 105 mmol/L (98-107) 07/16/18 06:00 Carbon Dioxide 28 mmol/L (21-33) 07/16/18 06:00 Anion Gap 13 (10-20) 07/16/18 06:00 BUN 15 mg/dL (7-21) 07/16/18 06:00 Creatinine 0.9 mg/dl (0.8-1.5) 07/16/18 06:00 Est GFR ( Amer) > 60 07/16/18 06:00 Est GFR (Non-Af Amer) > 60 07/16/18 06:00 POC Glucose (mg/dL) 417 mg/dL (65-110) H* 07/16/18 11:06 Random Glucose 284 mg/dL (70-110) H 07/16/18 06:00 Hemoglobin A1c 9.0 % (4.2-6.5) H D 07/14/18 06:00 Calcium 9.1 mg/dL (8.4-10.5) 07/16/18 06:00 Phosphorus 2.6 mg/dL (2.5-4.5) 07/14/18 06:00 Magnesium 1.7 mg/dL (1.7-2.2) 07/14/18 06:00 Total Bilirubin 0.4 mg/dL (0.2-1.3) 07/16/18 06:00 AST 27 U/L (17-59) 07/16/18 06:00 ALT 16 U/L (7-56) 07/16/18 06:00 Alkaline Phosphatase 55 U/L (38-126) 07/16/18 06:00 Total Protein 7.1 g/dL (5.8-8.3) 07/16/18 06:00 Albumin 3.8 g/dL (3.0-4.8) 07/16/18 06:00 Globulin 3.3 gm/dL 07/16/18 06:00 Albumin/Globulin Ratio 1.1 (1.1-1.8) 07/16/18 06:00 Triglycerides 128 mg/dL (35-160) 07/14/18 06:00 Cholesterol 98 mg/dL (130-200) L 07/14/18 06:00 LDL Cholesterol Direct 39 mg/dL (0-129) 07/14/18 06:00 HDL Cholesterol 21 mg/dL (29-60) L 07/14/18 06:00 Urine Color Yellow (YELLOW) 07/14/18 02:00 Urine Appearance Clear (CLEAR) 07/14/18 02:00 Urine pH 6.0 (4.7-8.0) 07/14/18 02:00 Ur Specific [place] 1.025 (1.005-1.035) 07/14/18 02:00 Urine Protein 30 mg/dL (<30 mg/dL) H 07/14/18 02:00 Urine Glucose (UA) Negative mg/dL (NEGATIVE) 07/14/18 02:00 Urine Ketones Negative mg/dL (NEGATIVE) 07/14/18 02:00 Urine Blood Negative (NEGATIVE) 07/14/18 02:00 Urine Nitrate Negative (NEGATIVE) 07/14/18 02:00 Urine Bilirubin Negative (NEGATIVE) 07/14/18 02:00 Urine Urobilinogen 0.2 E.U./dL (<1 E.U./dL) 07/14/18 02:00 Ur Leukocyte Esterase Moderate Iris/uL (NEGATIVE) H 07/14/18 02:00 Urine RBC 0 - 2 /hpf (0-2) 07/14/18 02:00 Urine WBC 5 - 10 /hpf (0-6) H 07/14/18 02:00 Ur Epithelial Cells 1 - 3 /hpf (0-5) 07/14/18 02:00 Urine Bacteria Occ /hpf (NONE) 07/14/18 02:00 Attending/Attestation - Attestation I have personally seen and examined this patient.: Yes I have fully participated in the care of the patient.: Yes I have reviewed all pertinent clinical information, including history, physical exam and plan: Yes Notes (Text): 58 year old male with past medical history of CAD s/p stent, diabetes, NPH s/p VPS, BPH, and schizophrenia who presented with lower abdominal wall / scrotal cellulitis. He was started on iv antibiotics and nystatin topical with improvement of symptoms. CT abd/pelvis and ultrasound was reviewed as above. Surgery was also following for bilateral inguinal hernias as sen on CT scan; no surgical intervention was recommended at this time. Patient is discharged home to follow up with pmd. Continue with po antibiotics and nystatin. Recommended to follow up with urology. Altagracia Savage MD Hospitalist.
--- NOTE | 2018-07-16 22:08 | CP.PCM.PN ---
Subjective - Date & Time of Evaluation Date of Evaluation: 07/16/18 Time of Evaluation: 14:00 - Subjective Subjective: Infectious Disease Follow Up: July 16, 2018 58 yo male with PMHx of CAD, DM type 2, NPH, BPH, and Schizophrenia presented with 1 week of worsening erythema and swelling of the scrotum. He states that he has had a scrotal rash for the past year. The patient was using a steroid cream without relief or improvement. Scrotum with combination of tinea rash and secondary superinfection/cellulitis. The patient is receiving IV Vancomycin and Zosyn for antibiotic therapy. Nystatin powder for the tinea rash. Diflucan is not useful in non-Gay infections. Scrotum rash and erythema significantly improved. Patient is feeling better. Objective - Vital Signs/Intake and Output Vital Signs (last 24 hours): Temp Pulse Resp BP Pulse Ox 97.9 F 90 18 155/70 H 93 L 07/16/18 08:23 07/16/18 08:23 07/16/18 08:23 07/16/18 10:06 07/16/18 08:23 Intake and Output: 07/16/18 07/17/18 18:59 06:59 Intake Total 240 Balance 240 - Labs Labs: 07/16/18 06:00 07/16/18 06:00 PT 11.9 SECONDS (9.4-12.5) 07/13/18 22:30 INR 1.07 07/13/18 22:30 APTT 36.7 Seconds (26.9-38.3) 07/13/18 22:30 - Constitutional Appears: Non-toxic, No Acute Distress - Head Exam Head Exam: ATRAUMATIC, NORMOCEPHALIC - Eye Exam Eye Exam: EOMI, PERRL Pupil Exam: NORMAL ACCOMODATION, PERRL - ENT Exam ENT Exam: Mucous Membranes Moist, Normal External Ear Exam, TM's Normal Bilaterally - Neck Exam Neck Exam: Full ROM, Normal Inspection - Respiratory Exam Respiratory Exam: Clear to Ausculation Bilateral, NORMAL BREATHING PATTERN. absent: Rales, Rhonchi, Wheezes - Cardiovascular Exam Cardiovascular Exam: REGULAR RHYTHM, RRR, +S1, +S2 - GI/Abdominal Exam GI & Abdominal Exam: Soft, Normal Bowel Sounds. absent: Distended, Tenderness - Exam Exam: Scrotal Swelling, Testicular Tenderness External exam: Erythema Additional comments: Erythematous rash with peripheral excoriations between abdominal and inguinal skin folds and underlying scrotum that reduced in size Bilateral inguinal and scrotal region tender to palpation initially but has significantly improved. Tinea rash on scrotum. No discharge or purulence, no necrosis or gangrenous areas visualized. Areas of dry skin. Palpable bilateral inguinal hernias - Extremities Exam Extremities Exam: Full ROM, Normal Inspection - Neurological Exam Neurological Exam: Alert, Awake, CN II-XII Intact, Oriented x3 - Psychiatric Exam Psychiatric exam: Flat Affect - Skin Additional comments: As above. Assessment and Plan - Assessment and Plan (Free Text) Assessment: 58 yo male with scrotal swelling and erythema. Testicular ultrasouns showing bilateral hydroceles but no torsion. Multiple medical issues including DM and HTN. Started on Zosyn and IV Vancomycin for antibiotic care. Monitor renal function. Poorly controlled diabetes. Monitor level of Vancomycin. Continue with Zosyn and IV Vancomycin. Local wound care. Nystatin powder placed on scrotum for Tinea rash. Urine cultures with Group B strep growth. Can discharge with Augmentin 875 mg BID for 10-14 days more with nystatin powder or ointment to the scrotum as well. Supportive care. Thank you for allowing me to participate in the care of this patient, we will follow with you.
== END 2018-07-16 16:28 | disposition home or self-care (01) | DRG 350 ==
LOC: ED 21:56 → ERH 07-14 01:36 → 3RNO 07-14 02:44 → OBSVTOIN 07-14 15:58
PROVIDERS: ADMIT Hospitalist; ATTEND Internal Medicine
DX: N49.2 Inflammatory disorders of scrotum (principal); B35.9 Dermatophytosis, unspecified; G91.2 (Idiopathic) normal pressure hydrocephalus; E11.65 Type 2 diabetes mellitus with hyperglycemia; J44.9 Chronic obstructive pulmonary disease, unspecified; F20.9 Schizophrenia, unspecified; N43.3 Hydrocele, unspecified; N40.0 Benign prostatic hyperplasia without lower urinary tract symptoms; I10 Essential (primary) hypertension; I25.10 Atherosclerotic heart disease of native coronary artery without angina pectoris; G47.30 Sleep apnea, unspecified; K40.90 Unilateral inguinal hernia, without obstruction or gangrene, not specified as recurrent; K59.00 Constipation, unspecified; Z98.2 Presence of cerebrospinal fluid drainage device; Z86.73 Personal history of transient ischemic attack (TIA), and cerebral infarction without residual deficits; Z79.02 Long term (current) use of antithrombotics/antiplatelets; Z79.82 Long term (current) use of aspirin; Z79.4 Long term (current) use of insulin; Z95.5 Presence of coronary angioplasty implant and graft; Z87.891 Personal history of nicotine dependence